=== PATIENT | female | born 2000 | race Two or more races ===

== ENCOUNTER 2018-03-29 20:45 | Emergency (ER) | payer BC ==
[~2018-03-29] VITALS: Ht 172.7 cm; Wt 113.4 kg
--- NOTE | 2018-03-29 20:52 | ED.ADGEN ---
Adult General Chief Complaint Chief Complaint ".. I think .. I am ... the last preg. I was never + by urine.. but I ve not had a period for 2 and 1/2 months..." "I feel the same.. I ve had endometriosis before as well as ovarian cyst on the right...but I really feel like I am . .." I have the same nausea I had when I was ".. I just delivered 8 months ago.." [facility] HPI Patient is a 18 year old female who presents with above hx and complaints of nausea and convinced that she is . She states she has not had a period for last 2 and half months. She states early on in last urine hCGs were negative. Patient has some mild generalized right sided abdomen pain. Patient denies any vaginal discharge. Patient has been sexually active. No history of STDs. LSP x 4. No history of travel. Patient has been gravid and term 1. Patient delivery was 8 months ago. Patient has past history of endometriosis and right ovarian cyst. No history of travel. No history of trauma. No history of ill contacts. She reports normal stools and urinary out put. No history of bad food. Review of Systems Review of Systems Constitutional: Denies fever or chills [] Eyes: Denies change in visual acuity, redness, or eye pain [] HENT: Denies nasal congestion or sore throat [] Respiratory: Denies cough or shortness of breath [] Cardiovascular: No additional information not addressed in HPI [] GI: Complains of abdominal pain, nausea,. Denies vomiting, bloody stools or diarrhea []complains of no periods for 2-1/2 months : Denies dysuria or hematuria [] Musculoskeletal: Denies back pain or joint pain [] Integument: Denies rash or skin lesions [] Neurologic: Denies headache, focal weakness or sensory changes [] Endocrine: Denies polyuria or polydipsia [] All other systems were reviewed and found to be within normal limits, except as documented in this note. Family History Family History Noncontributory Current Medications Current Medications See nursing for home meds Allergies Allergies Allergies Coded Allergies Type Severity Reaction Last Updated Verified morphine Allergy Unknown 03/29/18 Yes Physical Exam Physical Exam Constitutional: no acute distress, non-toxic appearance. [] HENT: Normocephalic, atraumatic, bilateral external ears normal, oropharynx moist, no oral exudates, nose normal. [] Eyes: PERRLA, EOMI, conjunctiva normal, no discharge. [] Neck: Normal range of motion, no tenderness, supple, no stridor. [] Cardiovascular:Heart rate regular rhythm, no murmur [] Lungs & Thorax: Bilateral breath sounds equal at apex on auscultation [] Abdomen: Bowel sounds normal, soft, mild generalized right sided upper abdomen tenderness, no masses, no pulsatile masses. [] No Flank tenderness. Declines pelvic exam and rectal exam at this time. Obese. No rebound. Mild distention Skin: Warm, dry, no erythema, no rash. [] Back: No tenderness, no CVA tenderness. [] Extremities: No tenderness, no cyanosis, no clubbing, ROM intact, no edema. [] No psoas or heeltap. Neurologic: Alert and oriented X 3, normal motor function, normal sensory function, no focal deficits noted. [] Psychologic: Affect anxious,, judgement normal, mood normal. [] Current Patient Data Vital Signs Vital Signs Date Time Temp Pulse Resp B/P (MAP) Pulse Ox O2 Delivery O2 Flow Rate FiO2 03/29/18 23:16 94 18 143/99 (114) 99 Room Air 03/29/18 21:05 98.3 Lab Results Laboratory Tests Test 03/29/18 20:15 03/29/18 20:56 03/29/18 21:39 POC Urine HCG, Qualitative hcg negative (Negative) Urine Collection Type Unknown Urine Color Yellow Urine Clarity Cloudy Urine pH 5.5 Urine Specific [place] >=1.030 Urine Protein >100 mg/dl (NEG-TRACE) Urine Glucose (UA) Neg mg/dL (NEG) Urine Ketones (Stick) Neg mg/dL (NEG) Urine Blood Neg (NEG) Urine Nitrite Neg (NEG) Urine Bilirubin Neg (NEG) Urine Urobilinogen Dipstick 0.2 mg/dL (0.2 mg/dL) Urine Leukocyte Esterase Neg (NEG) Urine RBC 6-10 /HPF (0-2) Urine WBC 11-20 /HPF (0-4) Urine Squamous Epithelial Cells Mod /LPF Urine Bacteria Few /HPF (0-FEW) Urine Hyaline Casts Few /HPF Urine Mucus Slight /LPF Urine Opiates Screen Neg (NEG) Urine Methadone Screen Neg (NEG) Urine Barbiturates Neg (NEG) Urine Phencyclidine Screen Neg (NEG) Urine Amphetamine/Methamphetamine Neg (NEG) Urine Benzodiazepines Screen Neg (NEG) Urine Cocaine Screen Neg (NEG) Urine Cannabinoids Screen Neg (NEG) Urine Ethyl Alcohol Neg (NEG) Maternal Serum HCG Beta Subunit < 1 mIU/mL (0-6) EKG EKG [] Radiology/Procedures Radiology/Procedures [] Course & Med Decision Making Course & Med Decision Making Pertinent Labs and Imaging studies reviewed. (See chart for details). She'll follow-up with her [employer]GER [employer]. Consider workup for ovarian cycle dysfunction. Patient's stay on clear fluid diet for the next 48 hours. Return if any exacerbation of symptoms. Must follow-up. [] Final Impression Final Impression 1. Dysfunctional ovarian cycle 2. Nausea 3. Protein/albumin urine [] Dragon Disclaimer Dragon Disclaimer This electronic medical record was generated, in whole or in part, using a voice recognition dictation system. MARIE MONTOYA MD Mar 29, 2018 20:52
[2018-03-29 21:46] LABS: BILIRUBIN,URINE NEG (NEG); CLARITY,URINE CLOUDY; COLOR,URINE YELLOW; GLUCOSE,URINE NEG (NEG)
[2018-03-29 21:47] LABS: BACTERIA,URINE FEW /HPF (0-FEW); HYALINE CASTS, URINE FEW /HPF; NITRITE,URINE NEG (NEG); SQUAMOUS EPITHELIAL CELL,UR MOD /LPF; UROBILINOGEN,URINE 0.2 mg/dL (0.2 mg/dL)
[2018-03-29 21:49] LABS: BARBITURATES NEG (NEG); BENZODIAZEPINES NEG (NEG); CANNABINOIDS NEG (NEG); COCAINE NEG (NEG); METHADONE NEG (NEG); OPIATES NEG (NEG); PHENCYCLIDINE NEG (NEG)
[2018-03-29 21:50] LABS: AMPHETAMINE/METHAMPHETAMINE NEG (NEG)
[2018-03-29 23:16] VITALS: BP 143/99
== END 2018-03-29 23:16 | disposition home or self-care (01) ==
LOC: ER 20:45
DX: E28.8 Other ovarian dysfunction (principal); R80.9 Proteinuria, unspecified; Z88.5 Allergy status to narcotic agent
CPT/HCPCS: 36415; 80307; 81001; 81025; 84702; 87086; 99284; G0479

== ENCOUNTER 2018-07-20 11:38 | Emergency (ER) | payer BC, MEDICAID ==
[~2018-07-20] VITALS: Ht 170.2 cm; Wt 113.4 kg
[2018-07-20] MEDS ORDERED: IV NORMAL SALINE 1,000ML 1,000 ML IV SCH (12:00)
[2018-07-20] MEDS ORDERED: ONDANSETRON PF 4 MG/2 ML VIAL. ONE (12:03)
[2018-07-20 12:25] VITALS: BP 130/80
[2018-07-20] MEDS ORDERED: ONDANSETRON PF 4 MG/2 ML VIAL. IV ONE (12:30)
[2018-07-20 12:39] LABS: BACTERIA,URINE FEW /HPF (0-FEW); BILIRUBIN,URINE NEG (NEG); CLARITY,URINE CLEAR; COLOR,URINE STRAW; GLUCOSE,URINE NEG (NEG); NITRITE,URINE NEG (NEG); RBC,URINE 0 /HPF (0-2); SQUAMOUS EPITHELIAL CELL,UR FEW /LPF; UROBILINOGEN,URINE 0.2 mg/dL (0.2 mg/dL); WBC,URINE OCC /HPF (0-4)
[2018-07-20 12:50] LABS: BASO % 1 % (0-3); EOS # 0.1 x10^3/uL (0.0-0.7); EOS % 1 % (0-3); HEMATOCRIT 42.2 % (36.0-47.0); HEMOGLOBIN 13.6 g/dL (12.0-15.5); LYMPH # 2.4 x10^3/uL (1.0-4.8); LYMPH % 33 % (24-48); MEAN CORPUSCULAR HEMOGLOBIN 27 pg (25-35); MEAN CORPUSCULAR HGB CONC 32 g/dL (31-37); MEAN CORPUSCULAR VOLUME 82 fL (79-100); MONO # 0.4 x10^3/uL (0.0-1.1); MONO % 6 % (0-9); NEUT # 4.5 x10^3uL (1.8-7.7); NEUT % 60 % (31-73); PLATELET COUNT 177 x10^3/uL (140-400); RED BLOOD COUNT 5.15 x10^6/uL (3.50-5.40); RED CELL DISTRIBUTION WIDTH 14.1 % (11.5-14.5); WHITE BLOOD COUNT 7.5 x10^3/uL (4.0-11.0)
--- NOTE | 2018-07-20 12:51 | PHYS DOC ---
Past History Past Medical History: Asthma, Endometriosis Past Surgical History: No Surgical History Smoking: Non-smoker Alcohol Use: None Drug Use: None Adult General Chief Complaint Chief Complaint: abdominal pain, nausea and vomiting [facility] HPI Patient is a 18 year old female who presents with pinning of multiple episodes of nausea and vomiting and abdominal pain and dizziness. Patient complaining of sudden onset of episodes of vomiting since yesterday morning and had 4 episodes of vomiting that stopped during night. Patient complaining of lower abdominal sharp and constant pain without radiation and rated her pain 9/10. Patient states she started to have vomiting since this morning and had 2 episodes of vomiting after eating. Patient complaining of generalized weakness and dizziness that getting worse with standing up and activity. Patient denies urinary symptoms, , diarrhea and constipation, fever and chills, sick contact. Review of Systems Review of Systems Constitutional: Denies fever or chills [] Eyes: Denies change in visual acuity, redness, or eye pain [] HENT: Denies nasal congestion or sore throat [] Respiratory: Denies cough or shortness of breath [] Cardiovascular: No additional information not addressed in HPI [] GI: Reports abdominal pain, nausea, vomiting, denies bloody stools or diarrhea [ ] : Denies dysuria or hematuria [] Musculoskeletal: Denies back pain or joint pain [] Integument: Denies rash or skin lesions [] Neurologic: Denies headache, focal weakness or sensory changes [] Endocrine: Denies polyuria or polydipsia [] All other systems were reviewed and found to be within normal limits, except as documented in this note. Current Medications Current Medications Current Medications Medications (Trade) Dose Ordered Sig/[facility] Start Time Stop Time Status Last Admin Dose Admin Ondansetron HCl (Zofran) 4 mg STK-MED ONCE 07/20/18 12:03 07/20/18 12:04 DC Sodium Chloride 1,000 ml @ 1,000 mls/hr Q1H 07/20/18 12:00 07/20/18 12:59 07/20/18 12:22 1,000 MLS/HR Allergies Allergies Allergies Coded Allergies Type Severity Reaction Last Updated Verified morphine Allergy Unknown 03/29/18 Yes Physical Exam Physical Exam Constitutional: Well developed, well nourished, mild distress, non-toxic appearance. [] HENT: Normocephalic, atraumatic, oropharynx moist, no oral exudates, nose normal. [] Eyes: PERRLA, EOMI, conjunctiva normal, no discharge. [] Neck: Normal range of motion, no tenderness, supple, no stridor. [] Cardiovascular:Heart rate regular rhythm, no murmur [] Lungs & Thorax: Bilateral breath sounds clear to auscultation [] Abdomen: Bowel sounds normal, soft, no tenderness, no masses, no pulsatile masses. [] Skin: Warm, dry, no erythema, no rash. [] Back: No tenderness, no CVA tenderness. [] Extremities: No tenderness, no cyanosis, no clubbing, ROM intact, no edema. [] Neurologic: Alert and oriented X 3, normal motor function, normal sensory function, no focal deficits noted. [] Psychologic: Affect normal, judgement normal, mood normal. [] Current Patient Data Vital Signs Vital Signs Date Time Temp Pulse Resp B/P (MAP) Pulse Ox O2 Delivery O2 Flow Rate FiO2 07/20/18 12:25 71 18 130/80 (97) 99 Room Air 07/20/18 11:54 97.6 Lab Results Laboratory Tests Test 07/20/18 12:00 07/20/18 12:35 Urine Collection Type Unknown Urine Color Straw Urine Clarity Clear Urine pH 6.5 Urine Specific [place] 1.020 Urine Protein Neg (NEG-TRACE) Urine Glucose (UA) Neg mg/dL (NEG) Urine Ketones (Stick) Neg mg/dL (NEG) Urine Blood Neg (NEG) Urine Nitrite Neg (NEG) Urine Bilirubin Neg (NEG) Urine Urobilinogen Dipstick 0.2 mg/dL (0.2 mg/dL) Urine Leukocyte Esterase Neg (NEG) Urine RBC 0 /HPF (0-2) Urine WBC Occ /HPF (0-4) Urine Squamous Epithelial Cells Few /LPF Urine Bacteria Few /HPF (0-FEW) POC Urine HCG, Qualitative hcg negative (Negative) EKG EKG [] Radiology/Procedures Radiology/Procedures [] Course & Med Decision Making Course & Med Decision Making Pertinent Labs reviewed. (See chart for details) Evaluation of patient in ER showed 18-year-old male patient with complaining of episodes of nausea and vomiting and abdominal pain and generalized weakness and dizziness since yesterday. Patient had unremarkable physical exam and labs and felt better with IV fluid, Zofran and Toradol and tolerated oral intake. Plan discharge patient home to diagnose of viral gastritis. Dragon Disclaimer Dragon Disclaimer This electronic medical record was generated, in whole or in part, using a voice recognition dictation system. Departure Departure: Impression: Primary Impression: Viral gastritis Additional Impressions: Nausea and vomiting Abdominal pain Disposition: HOME, SELF-CARE (at 1326) Condition: IMPROVED Referrals: PCP,NO (PCP) Patient Instructions: Abdominal Pain, Nausea and Vomiting Additional Instructions: Drink plenty of liquids Follow-up with your primary care physician in 3-5 days Return to ER if not getting better Do not take solid food for 24 hours after the last vomiting Scripts Ondansetron Hcl (ZOFRAN) 4 Mg Tablet 1 TAB PO Q6HRS for nausea and vomiting, #12 TAB Prov: SAMMI CROWDER MD 07/20/18 Naproxen (NAPROSYN) 500 Mg Tablet 500 MG PO BID for pain, #20 TAB Prov: SAMMI CROWDER MD 07/20/18 Problem Qualifiers SAMMI CROWDER MD Jul 20, 2018 12:51
[2018-07-20 12:54] LABS: ALBUMIN 3.9 g/dL (3.4-5.0); ALBUMIN/GLOBULIN RATIO 1.1 (1.0-1.7); CALCIUM 9.3 mg/dL (8.5-10.1); CREATININE 0.7 mg/dL (0.6-1.0); GFR 106.7; POTASSIUM 3.9 mmol/L (3.5-5.1); TOTAL BILIRUBIN 0.3 mg/dL (0.2-1.0); TOTAL PROTEIN 7.5 g/dL (6.4-8.2)
[2018-07-20] MEDS ORDERED: KETOROLAC 30 MG/ML VIAL. IV ONE (13:15)
[2018-07-20] MEDS ORDERED: NAPR-683 PO (13:31)
[2018-07-20] MEDS ORDERED: ONDA4TAB7 PO (13:31)
== END 2018-07-20 13:47 | disposition home or self-care (01) ==
LOC: ER 11:38
DX: A08.4 Viral intestinal infection, unspecified (principal); R42 Dizziness and giddiness; J45.909 Unspecified asthma, uncomplicated; Z88.5 Allergy status to narcotic agent
CPT/HCPCS: 36415; 80053; 81001; 81025; 83690; 85025; 96361; 96374; 96375; 99283; J1885; J2405; 99284-25; J7030

== ENCOUNTER 2018-08-05 06:51 | Emergency (ER) | payer BC, OTHER ==
[~2018-08-05] VITALS: Ht 170.2 cm; Wt 117.9 kg
[~2018-08-05 06:51] MED LIST: NAPR-683 PO; ONDA4TAB7 PO
[2018-08-05] MEDS ORDERED: IV NORMAL SALINE 1,000ML 1,000 ML IV SCH (07:06)
[2018-08-05] MEDS ORDERED: ONDANSETRON PF 4 MG/2 ML VIAL. IV ONE (07:30)
[2018-08-05 07:31] LABS: BASO % 0 % (0-3); EOS % 1 % (0-3); HEMATOCRIT 44.6 % (36.0-47.0); HEMOGLOBIN 14.5 g/dL (12.0-15.5); LYMPH # 1.8 x10^3/uL (1.0-4.8); LYMPH % 22 % (24-48); MEAN CORPUSCULAR HEMOGLOBIN 27 pg (25-35); MEAN CORPUSCULAR HGB CONC 33 g/dL (31-37); MEAN CORPUSCULAR VOLUME 82 fL (79-100); MONO # 0.5 x10^3/uL (0.0-1.1); MONO % 6 % (0-9); NEUT # 5.7 x10^3uL (1.8-7.7); NEUT % 71 % (31-73); PLATELET COUNT 198 x10^3/uL (140-400); RED BLOOD COUNT 5.43 x10^6/uL (3.50-5.40); WHITE BLOOD COUNT 8.1 x10^3/uL (4.0-11.0)
[2018-08-05 07:43] LABS: PREG TEST PT QUAL NEGATIVE (NEG)
[2018-08-05 07:47] LABS: ALBUMIN 3.7 g/dL (3.4-5.0); ALBUMIN/GLOBULIN RATIO 0.8 (1.0-1.7); CALCIUM 9.1 mg/dL (8.5-10.1); CREATININE 0.9 mg/dL (0.6-1.0); GFR 79.8; POTASSIUM 4.6 mmol/L (3.5-5.1); TOTAL BILIRUBIN 0.3 mg/dL (0.2-1.0); TOTAL PROTEIN 8.2 g/dL (6.4-8.2)
[2018-08-05] MEDS: KETOROLAC 30 MG/ML VIAL. IV ONE ×2 (07:58→08:44)
[2018-08-05 08:31] LABS: BACTERIA,URINE FEW /HPF (0-FEW); BILIRUBIN,URINE NEG (NEG); CLARITY,URINE CLEAR; COLOR,URINE YELLOW; GLUCOSE,URINE NEG (NEG); NITRITE,URINE NEG (NEG); RBC,URINE 0 /HPF (0-2); SQUAMOUS EPITHELIAL CELL,UR OCC /LPF; UROBILINOGEN,URINE 0.2 mg/dL (0.2 mg/dL)
--- NOTE | 2018-08-05 08:33 | RAD ---
CT of the abdomen and pelvis without contrast, 08/05/2018: HISTORY: Lower abdominal pain and nausea Noncontrast scans were obtained as requested. The liver is enlarged and demonstrates decreased density in a geographic, patchy pattern. The findings suggest hepatic steatosis. The gallbladder is unremarkable. No pancreatic abnormality is seen. The spleen is of normal size. No renal abnormality is detected. The abdominal aorta is unremarkable. No retroperitoneal, iliac or internal adenopathy is seen. The uterus and ovaries are unremarkable. There is a small amount of free fluid in the pelvis. The bowel loops are not dilated. A portion of the appendix is visualized and it is unremarkable. Several small mesenteric lymph nodes are present in the right lower quadrant. The largest of these demonstrates a short axis dimension of 8-9 mm. No definite mesenteric adenopathy is seen. No free air is evident in the abdomen or pelvis. Incidental note is made of bilateral spondylolysis at L5 without associated spondylolisthesis. IMPRESSION: 1. Small amount of free fluid in the pelvis. 2. Hepatomegaly with patchy decreased densities compatible with hepatic steatosis. 3. Bilateral spondylolysis at L5. PQRS Compliance Statement: One or more of the following individualized dose reduction techniques were utilized for this examination: 1. Automated exposure control 2. Adjustment of the mA and/or kV according to patient size 3. Use of iterative reconstruction technique Electronically signed by: Antolin Hamilton MD (08/05/2018 8:30 AM) [facility]
[2018-08-05 08:38] LABS: BARBITURATES NEG (NEG); BENZODIAZEPINES NEG (NEG); CANNABINOIDS NEG (NEG); COCAINE NEG (NEG); METHADONE NEG (NEG); OPIATES NEG (NEG); PHENCYCLIDINE NEG (NEG)
[2018-08-05 08:40] LABS: AMPHETAMINE/METHAMPHETAMINE NEG (NEG)
[2018-08-05] MEDS ORDERED: ONDA4TAB7 PO (09:02)
[2018-08-05] MEDS ORDERED: NAPR-683 PO (09:02)
--- NOTE | 2018-08-05 09:04 | PHYS DOC ---
Past History Past Medical History: Asthma, Endometriosis Past Surgical History: No Surgical History Smoking: Non-smoker Alcohol Use: None Drug Use: None Adult General Chief Complaint Chief Complaint: ABDOMINAL PAIN HPI HPI Patient is a 18 year old female who presents with leaning of sudden onset of severe right lower quadrant pain as a sharp pain with radiation to her back with one episode of vomiting since this morning like her previous episodes of abdominal pain with endometriosis. Patient said the pain 10 over 10 and denies urinary symptoms, fever and chills, . She states she finished her menstruation few days ago and does not have any vaginal bleeding or discharge. Review of Systems Review of Systems Constitutional: Denies fever or chills [] Eyes: Denies change in visual acuity, redness, or eye pain [] HENT: Denies nasal congestion or sore throat [] Respiratory: Denies cough or shortness of breath [] Cardiovascular: No additional information not addressed in HPI [] GI: Reports abdominal pain, nausea, vomiting, denies bloody stools or diarrhea [ ] : Denies dysuria or hematuria [] Musculoskeletal: Denies back pain or joint pain [] Integument: Denies rash or skin lesions [] Neurologic: Denies headache, focal weakness or sensory changes [] Endocrine: Denies polyuria or polydipsia [] All other systems were reviewed and found to be within normal limits, except as documented in this note. Current Medications Current Medications Current Medications Medications (Trade) Dose Ordered Sig/[facility] Start Time Stop Time Status Last Admin Dose Admin Ketorolac Tromethamine (Toradol 30mg Vial) 30 mg 1X ONCE 08/05/18 07:30 08/05/18 07:32 DC 08/05/18 07:58 30 MG Ondansetron HCl (Zofran) 4 mg 1X ONCE 08/05/18 07:30 08/05/18 07:32 DC Sodium Chloride 1,000 ml @ 1,000 mls/hr Q1H 08/05/18 07:06 08/05/18 08:05 DC 08/05/18 07:17 1,000 MLS/HR Allergies Allergies Allergies Coded Allergies Type Severity Reaction Last Updated Verified morphine Allergy Unknown 03/29/18 Yes Physical Exam Physical Exam Constitutional: Well developed, well nourished, moderate distress, non-toxic appearance. [] HENT: Normocephalic, atraumatic Eyes: PERRLA, EOMI, conjunctiva normal, no discharge. [] Neck: Normal range of motion, no tenderness, supple, no stridor. [] Cardiovascular:Heart rate regular rhythm, no murmur [] Lungs & Thorax: Bilateral breath sounds clear to auscultation [] Abdomen: Bowel sounds normal, soft, right lower quadrant guarding, no tenderness , no masses, no pulsatile masses. [] Skin: Warm, dry, no erythema, no rash. [] Back: No tenderness, no CVA tenderness. [] Extremities: No tenderness, no cyanosis, no clubbing, ROM intact, no edema. [] Neurologic: Alert and oriented X 3, normal motor function, normal sensory function, no focal deficits noted. [] Psychologic: Affect anxious, judgement normal, mood normal. [] Current Patient Data Vital Signs Vital Signs Date Time Temp Pulse Resp B/P (MAP) Pulse Ox O2 Delivery O2 Flow Rate FiO2 08/05/18 07:17 98.2 74 24 99 Room Air Lab Results Laboratory Tests Test 08/05/18 07:05 08/05/18 07:10 Urine Collection Type U cath Urine Color Yellow Urine Clarity Clear Urine pH 7.5 Urine Specific [place] 1.020 Urine Protein 100 mg/dl (NEG-TRACE) Urine Glucose (UA) Neg mg/dL (NEG) Urine Ketones (Stick) Neg mg/dL (NEG) Urine Blood Neg (NEG) Urine Nitrite Neg (NEG) Urine Bilirubin Neg (NEG) Urine Urobilinogen Dipstick 0.2 mg/dL (0.2 mg/dL) Urine Leukocyte Esterase Neg (NEG) Urine RBC 0 /HPF (0-2) Urine WBC 1-4 /HPF (0-4) Urine Squamous Epithelial Cells Occ /LPF Urine Bacteria Few /HPF (0-FEW) Urine Mucus Slight /LPF Urine Opiates Screen Neg (NEG) Urine Methadone Screen Neg (NEG) Urine Barbiturates Neg (NEG) Urine Phencyclidine Screen Neg (NEG) Urine Amphetamine/Methamphetamine Neg (NEG) Urine Benzodiazepines Screen Neg (NEG) Urine Cocaine Screen Neg (NEG) Urine Cannabinoids Screen Neg (NEG) Urine Ethyl Alcohol Neg (NEG) White Blood Count 8.1 x10^3/uL (4.0-11.0) Red Blood Count 5.43 x10^6/uL (3.50-5.40) H Hemoglobin 14.5 g/dL (12.0-15.5) Hematocrit 44.6 % (36.0-47.0) Mean Corpuscular Volume 82 fL (79-100) Mean Corpuscular Hemoglobin 27 pg (25-35) Mean Corpuscular Hemoglobin Concent 33 g/dL (31-37) Red Cell Distribution Width 14.0 % (11.5-14.5) Platelet Count 198 x10^3/uL (140-400) Neutrophils (%) (Auto) 71 % (31-73) Lymphocytes (%) (Auto) 22 % (24-48) L Monocytes (%) (Auto) 6 % (0-9) Eosinophils (%) (Auto) 1 % (0-3) Basophils (%) (Auto) 0 % (0-3) Neutrophils # (Auto) 5.7 x10^3uL (1.8-7.7) Lymphocytes # (Auto) 1.8 x10^3/uL (1.0-4.8) Monocytes # (Auto) 0.5 x10^3/uL (0.0-1.1) Eosinophils # (Auto) 0.0 x10^3/uL (0.0-0.7) Basophils # (Auto) 0.0 x10^3/uL (0.0-0.2) Sodium Level 140 mmol/L (136-145) Potassium Level 4.6 mmol/L (3.5-5.1) Chloride Level 103 mmol/L (98-107) Carbon Dioxide Level 25 mmol/L (21-32) Anion Gap 12 (6-14) Blood Urea Nitrogen 14 mg/dL (7-20) Creatinine 0.9 mg/dL (0.6-1.0) Estimated GFR (Cockcroft-Gault) 79.8 BUN/Creatinine Ratio 16 (6-20) Glucose Level 120 mg/dL (70-99) H Calcium Level 9.1 mg/dL (8.5-10.1) Total Bilirubin 0.3 mg/dL (0.2-1.0) Aspartate Amino Transferase (AST) 19 U/L (15-37) Alanine Aminotransferase (ALT) 26 U/L (14-59) Alkaline Phosphatase 71 U/L (46-116) Total Protein 8.2 g/dL (6.4-8.2) Albumin 3.7 g/dL (3.4-5.0) Albumin/Globulin Ratio 0.8 (1.0-1.7) L Lipase 127 U/L (73-393) Serum Test, Qualitative Negative (NEG) EKG EKG [] Radiology/Procedures Radiology/Procedures [] Course & Med Decision Making Course & Med Decision Making Pertinent Labs and Imaging studies reviewed. (See chart for details) Evaluation of patient in ER showed 18-year-old female patient with sudden onset of right lower quadrant pain and nausea and vomiting. Patient had moderate distress at arrival to ER that improved with IV fluid, Zofran, Toradol. Patient had unremarkable labs and CT abdomen and pelvis except for mild fluid in pelvis. Patient informed at most efficiently small ruptured ovarian cyst that caused severe pain. Plan discharge patient home with diagnose of lower abdominal pain and nausea and vomiting. Patient instructed to follow-up with on- call COMMER[employer] ANALYST Dr Boyle. Gurinder Disclaimer Gurinder Disclaimer This electronic medical record was generated, in whole or in part, using a voice recognition dictation system. Departure Departure: Impression: Primary Impression: Abdominal pain Additional Impression: Nausea and vomiting Disposition: HOME, SELF-CARE (at 0858) Condition: IMPROVED Referrals: PCP,NO (PCP) Patient Instructions: Abdominal Pain, Nausea and Vomiting Additional Instructions: Follow-up with on-call COMMERCIAL FINANCE ANALYST Jose Juan Boyle call [phone] to make an appointment Drink plenty of liquids Follow-up with your primary care physician in 3-5 days Return to ER if not getting better Scripts Naproxen (NAPROSYN) 500 Mg Tablet 500 MG PO BID for pain, #20 TAB Prov: SAMMI CROWDER MD 08/05/18 Ondansetron Hcl (ZOFRAN) 4 Mg Tablet 1 TAB PO Q6HRS for nausea and vomiting, #12 TAB Prov: SAMMI CROWDER MD 08/05/18 Problem Qualifiers SAMMI CROWDER MD Aug 05, 2018 09:04
[2018-08-05 09:12] VITALS: BP 161/82
== END 2018-08-05 09:28 | disposition home or self-care (01) ==
LOC: ER 06:51
DX: R10.31 Right lower quadrant pain (principal); R11.2 Nausea with vomiting, unspecified; J45.909 Unspecified asthma, uncomplicated; Z88.5 Allergy status to narcotic agent
CPT/HCPCS: 36415; 74176; 80053; 80307; 81001; 83690; 84703; 85025; 96361; 96374; 99284; J1885; J7030

== ENCOUNTER 2018-08-08 06:17 | Emergency (ER) | payer BC, OTHER ==
[~2018-08-08] VITALS: Ht 170.2 cm; Wt 119.3 kg
[2018-08-08 06:20] VITALS: BP 149/71
[2018-08-08] MEDS ORDERED: TRAM-48 PO (06:42)
--- NOTE | 2018-08-08 06:43 | PHYS DOC ---
Past History Past Medical History: Asthma, Endometriosis Past Surgical History: No Surgical History Smoking: Non-smoker Alcohol Use: None Drug Use: None Adult General Chief Complaint Chief Complaint: ABDOMINAL PAIN HPI HPI Patient is a 18 year old female with history of endometriosis who presents with ending of lower abdominal pain. Patient complaining of constant lower abdominal pain for the last 5 days as a sharp pain with radiation to pelvic area. Patient had one episode of vomiting the first day patient was seen in this emergency room by me and had unremarkable CT of abdomen and pelvis and labs and treated with IV fluid and Toradol and felt better and discharged home with prescription of Naprosyn. The patient was seen by POWER TRUCK DRIVER and instructed to remove the implanted contraception and is scheduled for laparoscopic surgery in August. Patient states her pain is improved after emergency room visit but and rated her pain 9/10. Patient denies urinary symptoms, , fever and chills, diarrhea and constipation. Patient had history of the same episode of pain with diagnosis of endometriosis. Review of Systems Review of Systems Constitutional: Denies fever or chills [] Eyes: Denies change in visual acuity, redness, or eye pain [] HENT: Denies nasal congestion or sore throat [] Respiratory: Denies cough or shortness of breath [] Cardiovascular: No additional information not addressed in HPI [] GI: Reports abdominal pain, nausea, denies vomiting, bloody stools or diarrhea [ ] : Denies dysuria or hematuria [] Musculoskeletal: Denies back pain or joint pain [] Integument: Denies rash or skin lesions [] Neurologic: Denies headache, focal weakness or sensory changes [] Endocrine: Denies polyuria or polydipsia [] All other systems were reviewed and found to be within normal limits, except as documented in this note. Current Medications Current Medications Current Medications Medications (Trade) Dose Ordered Sig/[facility] Start Time Stop Time Status Last Admin Dose Admin Acetaminophen/ Hydrocodone Bitart (Lortab 5/325) 1 tab 1X ONCE 08/08/18 06:45 08/08/18 06:46 UNV Ketorolac Tromethamine (Toradol Im) 60 mg 1X ONCE 08/08/18 06:45 08/08/18 06:46 UNV Allergies Allergies Allergies Coded Allergies Type Severity Reaction Last Updated Verified morphine Allergy Unknown 03/29/18 Yes Physical Exam Physical Exam Constitutional: Well developed, well nourished, mild distress, non-toxic appearance, morbidly obese. [] HENT: Normocephalic, atraumatic, bilateral external ears normal, oropharynx moist, no oral exudates, nose normal. [] Eyes: PERRLA, EOMI, conjunctiva normal, no discharge. [] Neck: Normal range of motion, no tenderness, supple, no stridor. [] Cardiovascular:Heart rate regular rhythm, no murmur [] Lungs & Thorax: Bilateral breath sounds clear to auscultation [] Abdomen: Bowel sounds normal, soft, no tenderness, no masses, no pulsatile masses. [] Skin: Warm, dry, no erythema, no rash. [] Back: No tenderness, no CVA tenderness. [] Extremities: No tenderness, no cyanosis, no clubbing, ROM intact, no edema. [] Neurologic: Alert and oriented X 3, normal motor function, normal sensory function, no focal deficits noted. [] Psychologic: Affect normal, judgement normal, mood normal. [] EKG EKG [] Radiology/Procedures Radiology/Procedures [] Course & Med Decision Making Course & Med Decision Making Evaluation of patient in ER showed 18-year-old female patient with history of endometriosis with complaining of continuing abdominal pain for the last several days with negative previous emergency room evaluation. She was seen by her POWER TRUCK DRIVER and has a scheduled for laparoscopy procedure. Patient had unremarkable physical exam and treated with Toradol and [place] with improvement of her pain. Patient instructed to continue Naprosyn and prescription for Ultram was given. Patient asking for work excuse and light duty. Dragon Disclaimer Dragon Disclaimer This electronic medical record was generated, in whole or in part, using a voice recognition dictation system. Departure Departure: Impression: Primary Impression: Lower abdominal pain Additional Impressions: Endometriosis Morbid obesity with BMI of 40.0-44.9, adult Disposition: HOME, SELF-CARE (At 0650) Condition: IMPROVED Referrals: PCP,MALINI (PCP) Patient Instructions: Abdominal Pain, Endometriosis Additional Instructions: Drink plenty of liquids Follow-up with your primary care physician in 3-5 days Return to ER if not getting better Follow-up with your POWER TRUCK DRIVER as scheduled Scripts Tramadol Hcl (ULTRAM) 50 Mg Tablet 50 MG PO PRN Q6HRS PRN for PAIN, #20 TAB Prov: SAMMI CROWDER MD 08/08/18 Problem Qualifiers SAMMI CROWDER MD Aug 08, 2018 06:43
[2018-08-08] MEDS ORDERED: HYDROcodone/APAP 5/325MG 1 TAB TABLET PO ONE (07:00)
[2018-08-08] MEDS ORDERED: KETOROLAC 60 MG/2 ML VIAL. IM ONE (07:00)
== END 2018-08-08 07:01 | disposition home or self-care (01) ==
LOC: ER 06:17
DX: N80.8 Other endometriosis (principal); E66.01 Morbid (severe) obesity due to excess calories; Z68.41 Body mass index [BMI] 40.0-44.9, adult
CPT/HCPCS: 96372; 99283; J1885

== ENCOUNTER 2018-09-20 17:55 | Emergency (ER) | payer BC, OTHER ==
[~2018-09-20] VITALS: Ht 170.2 cm; Wt 121.5 kg
[~2018-09-20 17:55] MED LIST changes: +TRAM-48 PO
[2018-09-20 19:08] LABS: BACTERIA,URINE FEW /HPF (0-FEW); BILIRUBIN,URINE NEG (NEG); CLARITY,URINE CLEAR; COLOR,URINE YELLOW; GLUCOSE,URINE NEG (NEG); NITRITE,URINE NEG (NEG); RBC,URINE 0 /HPF (0-2); SQUAMOUS EPITHELIAL CELL,UR FEW /LPF; UROBILINOGEN,URINE 0.2 mg/dL (0.2 mg/dL); WBC,URINE 0 /HPF (0-4)
[2018-09-20 20:45] VITALS: BP 141/76
[2018-09-20] MEDS ORDERED: ONDA8TAB9 PO (20:47)
--- NOTE | 2018-09-21 06:57 | ED.ADGEN ---
Past History Past Medical History: Asthma, Endometriosis, Ovarian Cyst Past Surgical History: No Surgical History Smoking: Non-smoker Alcohol Use: None Drug Use: None Adult General Chief Complaint Chief Complaint ".. I am having some spotting and I think I am ... and having some cramping... [facility] HPI Patient is a 18 year old female who presents with vaginal spotting . Pt. states last period was 3 week s ago. Pt. has a past history of endometriosis. No history of STDs. Patient describes pain is somewhat generalized cramping. No history of travel. No history of ill contacts. Has had a couple episodes of nausea. One episode of vomiting. One episode of diarrhea. No history of trauma. Review of Systems Review of Systems Constitutional: Denies fever or chills [] Eyes: Denies change in visual acuity, redness, or eye pain [] HENT: Denies nasal congestion or sore throat [] Respiratory: Denies cough or shortness of breath [] Cardiovascular: No additional information not addressed in HPI [] GI: Complaints of crampy abdominal pain, nausea, vomiting, and diarrhea [] : Denies dysuria or hematuria []some vaginal spotting Musculoskeletal: Denies back pain or joint pain [] Integument: Denies rash or skin lesions [] Neurologic: Denies headache, focal weakness or sensory changes [] Endocrine: Denies polyuria or polydipsia [] All other systems were reviewed and found to be within normal limits, except as documented in this note. Family History Family History Noncontributory Current Medications Current Medications See nursing for home meds. Allergies Allergies Allergies Coded Allergies Type Severity Reaction Last Updated Verified morphine Allergy Unknown 03/29/18 Yes Physical Exam Physical Exam Constitutional: Well developed, well nourished, no acute distress, non-toxic appearance. [] HENT: Normocephalic, atraumatic, bilateral external ears normal, oropharynx moist, no oral exudates, nose normal. [] Eyes: PERRLA, EOMI, conjunctiva normal, no discharge. [] Neck: Normal range of motion, no tenderness, supple, no stridor. [] Cardiovascular:Heart rate regular rhythm, no murmur [] Lungs & Thorax: Bilateral breath sounds equal at apex on auscultation [] Abdomen: Bowel sounds hyperactive, soft, generalized abdomen tenderness, no masses, no pulsatile masses. [] No focal rebound. Skin: Warm, dry, no erythema, no rash. [] Back: No tenderness, no CVA tenderness. [] Extremities: No tenderness, no cyanosis, no clubbing, ROM intact, no edema. [] Neurologic: Alert and oriented X 3, normal motor function, normal sensory function, no focal deficits noted. [] Psychologic: Affect anxious, judgement normal, mood normal. [] Current Patient Data Vital Signs Vital Signs Date Time Temp Pulse Resp B/P (MAP) Pulse Ox O2 Delivery O2 Flow Rate FiO2 09/20/18 20:45 82 20 141/76 (97) 98 Room Air 09/20/18 18:04 97.9 Lab Results Laboratory Tests Test 09/20/18 18:11 09/20/18 18:23 09/20/18 19:55 Urine Collection Type Unknown Urine Color Yellow Urine Clarity Clear Urine pH 7.0 Urine Specific [place] 1.025 Urine Protein 30 mg/dl (NEG-TRACE) Urine Glucose (UA) Neg mg/dL (NEG) Urine Ketones (Stick) Neg mg/dL (NEG) Urine Blood Neg (NEG) Urine Nitrite Neg (NEG) Urine Bilirubin Neg (NEG) Urine Urobilinogen Dipstick 0.2 mg/dL (0.2 mg/dL) Urine Leukocyte Esterase Neg (NEG) Urine RBC 0 /HPF (0-2) Urine WBC 0 /HPF (0-4) Urine Squamous Epithelial Cells Few /LPF Urine Bacteria Few /HPF (0-FEW) Urine Mucus Slight /LPF POC Urine HCG, Qualitative hcg negative (Negative) Maternal Serum HCG Beta Subunit < 1 mIU/mL (0-6) EKG EKG [] Radiology/Procedures Radiology/Procedures [] Course & Med Decision Making Course & Med Decision Making Pertinent Labs and Imaging studies reviewed. (See chart for details) Patient follow-up primary care. Patient return if any concerns. Continue monitor vaginal spotting. Advised patient current test are negative. Must follow-up. [] Final Impression Final Impression 1. Dysfunctional uterine bleeding 2. Abdomen discomfort-viral syndrome[] Dragon Disclaimer Dragon Disclaimer This electronic medical record was generated, in whole or in part, using a voice recognition dictation system. Dragon Disclaimer This chart was dictated in whole or in part using Voice Recognition software in a busy, high-work load, and often noisy Emergency Department environment. It may contain unintended and wholly unrecognized errors or omissions. Discharge Summary Visit Information Final Diagnosis Problems Medical Problems: (1) Pain in the abdomen Status: Acute Brief Hospital Course Allergies Allergies Coded Allergies Type Severity Reaction Last Updated Verified morphine Allergy Unknown 03/29/18 Yes Vital Signs Vital Signs Date Time Temp Pulse Resp B/P (MAP) Pulse Ox O2 Delivery O2 Flow Rate FiO2 09/20/18 20:45 82 20 141/76 (97) 98 Room Air 09/20/18 18:04 97.9 Lab Results Laboratory Tests Test 09/20/18 18:11 09/20/18 18:23 09/20/18 19:55 Urine Collection Type Unknown Urine Color Yellow Urine Clarity Clear Urine pH 7.0 Urine Specific [place] 1.025 Urine Protein 30 mg/dl (NEG-TRACE) Urine Glucose (UA) Neg mg/dL (NEG) Urine Ketones (Stick) Neg mg/dL (NEG) Urine Blood Neg (NEG) Urine Nitrite Neg (NEG) Urine Bilirubin Neg (NEG) Urine Urobilinogen Dipstick 0.2 mg/dL (0.2 mg/dL) Urine Leukocyte Esterase Neg (NEG) Urine RBC 0 /HPF (0-2) Urine WBC 0 /HPF (0-4) Urine Squamous Epithelial Cells Few /LPF Urine Bacteria Few /HPF (0-FEW) Urine Mucus Slight /LPF Bedside Urine HCG, Qualitative hcg negative (Negative) Maternal Serum HCG Beta Subunit < 1 mIU/mL (0-6) Brief Hospital Course Ms. Clark is a 18 old female who presented with crampy abd. pain and spotting. Urine and HCG - neg for . Pt. follow up with primary Discharge Information Dischare Medications Active Scripts Active Zofran (Ondansetron Hcl) 8 Mg Tablet 8 Mg PO QIDPRN PRN Ultram (Tramadol HCl) 50 Mg Tablet 50 Mg PO PRN Q6HRS PRN Naprosyn (Naproxen) 500 Mg Tablet 500 Mg PO BID Zofran (Ondansetron Hcl) 4 Mg Tablet 1 Tab PO Q6HRS Zofran (Ondansetron Hcl) 4 Mg Tablet 1 Tab PO Q6HRS Naprosyn (Naproxen) 500 Mg Tablet 500 Mg PO BID Discharge Summary Visit Information Final Diagnosis Problems Medical Problems: (1) Pain in the abdomen Status: Acute Brief Hospital Course Allergies Allergies Coded Allergies Type Severity Reaction Last Updated Verified morphine Allergy Unknown 03/29/18 Yes Vital Signs Vital Signs Date Time Temp Pulse Resp B/P (MAP) Pulse Ox O2 Delivery O2 Flow Rate FiO2 09/20/18 20:45 82 20 141/76 (97) 98 Room Air 09/20/18 18:04 97.9 Lab Results Laboratory Tests Test 09/20/18 18:11 09/20/18 18:23 09/20/18 19:55 Urine Collection Type Unknown Urine Color Yellow Urine Clarity Clear Urine pH 7.0 Urine Specific [place] 1.025 Urine Protein 30 mg/dl (NEG-TRACE) Urine Glucose (UA) Neg mg/dL (NEG) Urine Ketones (Stick) Neg mg/dL (NEG) Urine Blood Neg (NEG) Urine Nitrite Neg (NEG) Urine Bilirubin Neg (NEG) Urine Urobilinogen Dipstick 0.2 mg/dL (0.2 mg/dL) Urine Leukocyte Esterase Neg (NEG) Urine RBC 0 /HPF (0-2) Urine WBC 0 /HPF (0-4) Urine Squamous Epithelial Cells Few /LPF Urine Bacteria Few /HPF (0-FEW) Urine Mucus Slight /LPF Bedside Urine HCG, Qualitative hcg negative (Negative) Maternal Serum HCG Beta Subunit < 1 mIU/mL (0-6) Brief Hospital Course Ms. Clark is a 18 old female who presented with spotting, nausea and abd. cramping. Concerned she was . Test for are negative. Discharge Information Condition at Discharge: Improved, Stable Disposition/Orders: D/C to Home Dischare Medications Active Scripts Active Zofran (Ondansetron Hcl) 8 Mg Tablet 8 Mg PO QIDPRN PRN Ultram (Tramadol HCl) 50 Mg Tablet 50 Mg PO PRN Q6HRS PRN Naprosyn (Naproxen) 500 Mg Tablet 500 Mg PO BID Zofran (Ondansetron Hcl) 4 Mg Tablet 1 Tab PO Q6HRS Zofran (Ondansetron Hcl) 4 Mg Tablet 1 Tab PO Q6HRS Naprosyn (Naproxen) 500 Mg Tablet 500 Mg PO BID MARIE MONTOYA MD Sep 21, 2018 06:57
== END 2018-09-20 20:51 | disposition home or self-care (01) ==
LOC: ER 17:55
DX: N93.8 Other specified abnormal uterine and vaginal bleeding (principal); B34.9 Viral infection, unspecified; R10.84 Generalized abdominal pain; J45.909 Unspecified asthma, uncomplicated; Z88.5 Allergy status to narcotic agent
CPT/HCPCS: 36415; 81001; 81025; 84702; 99283

== ENCOUNTER 2018-10-13 09:18 | Emergency (ER) | payer BC, OTHER ==
[~2018-10-13] VITALS: Ht 172.7 cm; Wt 117.9 kg
[~2018-10-13 09:18] MED LIST changes: +ONDA8TAB9 PO
[2018-10-13] MEDS ORDERED: ONDANSETRON ODT 4 MG TAB.RAPDIS PO ONE (10:30)
[2018-10-13 10:40] LABS: COLOR,URINE YELLOW
[2018-10-13 10:41] LABS: BACTERIA,URINE 0 /HPF (0-FEW); BILIRUBIN,URINE NEG (NEG); CLARITY,URINE HAZY; GLUCOSE,URINE NEG (NEG); NITRITE,URINE NEG (NEG); RBC,URINE 0 /HPF (0-2); SQUAMOUS EPITHELIAL CELL,UR OCC /LPF; UROBILINOGEN,URINE 0.2 mg/dL (0.2 mg/dL); WBC,URINE 0 /HPF (0-4)
[2018-10-13] MEDS ORDERED: KETOROLAC 60 MG/2 ML VIAL. IM ONE (11:30)
--- NOTE | 2018-10-13 12:21 | RAD ---
Pelvic ultrasound History: Left-sided pelvic pain began today. Transabdominal scan Uterus measures 7.6 x 3.4 x 5.3 cm. Endometrial stripe measures 8 mm. Left ovary measures 4.3 cm. Right ovary measures 5.0 cm. Blood flow to the right ovary is documented with duplex imaging. Endovaginal scan Uterus measures 7.6 cm x 3.6 cm x 5.2 cm. Endometrial stripe measures 7 mm and is homogeneous. Left ovary measures 2.7 cm with small follicles. Left ovarian blood supply is not documented by duplex imaging on this exam. Right ovary cannot be visualized endovaginally. Note that evaluation was very difficult due to severe patient tenderness, particularly in the region of the right ovary. Moderate free fluid in the cul-de-sac and around the adnexa. IMPRESSION: 1. Technically difficult exam due to severe patient tenderness, particularly on the right. No definite right ovary abnormality transabdominally, but could not be visualized endovaginally. 2. Left ovary appears unremarkable, although blood supply is not documented. 3. Uterus unremarkable. 4. Moderate free pelvic fluid, uncertain etiology. Electronically signed by: Cuate Lee MD (10/13/2018 12:18 PM) [facility]
[2018-10-13 12:41] VITALS: BP 151/82
[2018-10-13] MEDS ORDERED: NAPR-683 PO (12:42)
[2018-10-13] MEDS ORDERED: ONDA4TAB7 PO (12:42)
--- NOTE | 2018-10-13 12:42 | PHYS DOC ---
Past History Past Medical History: Asthma, Endometriosis Past Surgical History: No Surgical History Smoking: Non-smoker Alcohol Use: None Drug Use: None Adult General Chief Complaint Chief Complaint: ABDOMINAL PAIN HPI HPI Patient is a 18 year old female with frequent emergency room visits with complaining of abdominal pain who presents with complaining of lower abdominal pain that started suddenly since this morning and pain with radiation to her back. Patient rated her pain 9/10 and complaining of nausea and vomiting with her pain. Patient states her pupils in July and she had negative home test few weeks ago. Patient denies fever and chills, vaginal bleeding or discharge, diarrhea and constipation. Patient states she had the same pain last month with diagnosis of ruptured ovarian cyst. Review of Systems Review of Systems Constitutional: Denies fever or chills [] Eyes: Denies change in visual acuity, redness, or eye pain [] HENT: Denies nasal congestion or sore throat [] Respiratory: Denies cough or shortness of breath [] Cardiovascular: No additional information not addressed in HPI [] GI: Reports abdominal pain, nausea, vomiting, denies bloody stools or diarrhea [ ] : Denies dysuria or hematuria [] Musculoskeletal: Denies back pain or joint pain [] Integument: Denies rash or skin lesions [] Neurologic: Denies headache, focal weakness or sensory changes [] Endocrine: Denies polyuria or polydipsia [] All other systems were reviewed and found to be within normal limits, except as documented in this note. Current Medications Current Medications Current Medications Medications (Trade) Dose Ordered Sig/[facility] Start Time Stop Time Status Last Admin Dose Admin Ketorolac Tromethamine (Toradol Im) 60 mg 1X ONCE 10/13/18 11:30 10/13/18 11:31 DC 10/13/18 11:47 60 MG Ondansetron HCl (Zofran Odt) 4 mg 1X ONCE 10/13/18 10:30 10/13/18 10:31 DC 10/13/18 10:26 4 MG Allergies Allergies Allergies Coded Allergies Type Severity Reaction Last Updated Verified morphine Allergy Unknown 10/13/18 Yes Physical Exam Physical Exam Constitutional: Well nourished, mild acute distress, non-toxic appearance. [] HENT: Normocephalic, atraumatic, oropharynx moist, no oral exudates, nose normal. [] Eyes: PERRLA, EOMI, conjunctiva normal, no discharge. [] Neck: Normal range of motion, no tenderness, supple, no stridor. [] Cardiovascular:Heart rate regular rhythm, no murmur [] Lungs & Thorax: Bilateral breath sounds clear to auscultation [] Abdomen: Bowel sounds normal, soft, no tenderness, suprapubic guarding, no masses, no pulsatile masses. [] Skin: Warm, dry, no erythema, no rash. [] Back: No tenderness, no CVA tenderness. [] Extremities: No tenderness, no cyanosis, no clubbing, ROM intact, no edema. [] Neurologic: Alert and oriented X 3, normal motor function, normal sensory function, no focal deficits noted. [] Psychologic: Affect anxious, judgement normal, mood normal. [] Current Patient Data Vital Signs Vital Signs Date Time Temp Pulse Resp B/P (MAP) Pulse Ox O2 Delivery O2 Flow Rate FiO2 10/13/18 09:42 98.3 86 18 99 Room Air Lab Results Laboratory Tests Test 10/13/18 10:22 10/13/18 10:23 Urine Collection Type Unknown Urine Color Yellow Urine Clarity Hazy Urine pH 5.5 Urine Specific [place] 1.015 Urine Protein Neg (NEG-TRACE) Urine Glucose (UA) Neg mg/dL (NEG) Urine Ketones (Stick) Neg mg/dL (NEG) Urine Blood Neg (NEG) Urine Nitrite Neg (NEG) Urine Bilirubin Neg (NEG) Urine Urobilinogen Dipstick 0.2 mg/dL (0.2 mg/dL) Urine Leukocyte Esterase Neg (NEG) Urine RBC 0 /HPF (0-2) Urine WBC 0 /HPF (0-4) Urine Squamous Epithelial Cells Occ /LPF Urine Bacteria 0 /HPF (0-FEW) POC Urine HCG, Qualitative hcg negative (Negative) EKG EKG [] Radiology/Procedures Radiology/Procedures [address] [address] IMAGING REPORT Signed PATIENT: ISAMAR COTA ACCOUNT: [id number] : 2000 LOCATION: ER AGE: 18 SEX: F EXAM STATUS: REG ER ORD. PHYSICIAN: SAMMI CROWDER MD REASON: left lower quadrant pain PROCEDURE: US PELVIS W/TV Pelvic ultrasound History: Left-sided pelvic pain began today. Transabdominal scan Uterus measures 7.6 x 3.4 x 5.3 cm. Endometrial stripe measures 8 mm. Left ovary measures 4.3 cm. Right ovary measures 5.0 cm. Blood flow to the right ovary is documented with duplex imaging. Endovaginal scan Uterus measures 7.6 cm x 3.6 cm x 5.2 cm. Endometrial stripe measures 7 mm and is homogeneous. Left ovary measures 2.7 cm with small follicles. Left ovarian blood supply is not documented by duplex imaging on this exam. Right ovary cannot be visualized endovaginally. Note that evaluation was very difficult due to severe patient tenderness, particularly in the region of the right ovary. Moderate free fluid in the cul-de-sac and around the adnexa. IMPRESSION: 1. Technically difficult exam due to severe patient tenderness, particularly on the right. No definite right ovary abnormality transabdominally, but could not be visualized endovaginally. 2. Left ovary appears unremarkable, although blood supply is not documented. 3. Uterus unremarkable. 4. Moderate free pelvic fluid, uncertain etiology. Electronically signed by: Cuate Lee MD (10/13/2018 12:18 PM) [facility] DICTATED AND SIGNED BY: CUATE LEE MD DATE: 10/13/18 1212 CC: SAMMI CROWDER MD; LEODAN NICK MD ~ Course & Med Decision Making Course & Med Decision Making Pertinent Labs and Imaging studies reviewed. (See chart for details) discharge: I've spoken with the patient and/or caregivers. I've explained the patient's condition, diagnosis and treatment plan based on information available to me at this time. I've answered the patient's and/or caregivers questions and addressed any concerns. The patient and/or caregivers have a good understanding the patient's diagnosis, condition and treatment plan as can be expected at this point. Vital signs have been stabilized. The patient's condition is stable for discharge from the emergency department. The patient will pursue further outpatient evaluation with her primary care provider or other designated consulting physician as outlined in the discharge instructions. Patient and/or caregivers are agreeable to this plan of care and follow-up instructions have been explained in detail. The patient and/or caregivers have received these instructions in written format and expressed understanding of these discharge instructions. The patient and her caregivers are aware that if any significant change in condition or worsening of symptoms should prompt him to immediately return to this of the closest emergency department. If an emergent department is not readily available I would encourage him to call 911. Gurinder Disclaimer Dragon Disclaimer This electronic medical record was generated, in whole or in part, using a voice recognition dictation system. Departure Departure: Impression: Primary Impression: Lower abdominal pain Disposition: HOME, SELF-CARE (at 1240) Condition: STABLE Referrals: LEODAN NICK MD (PCP) Patient Instructions: Pelvic Pain, Female Additional Instructions: Follow-up with your WARN[facility] [employer] [facility]EOROLOGIST appointment as a scheduled for tomorrow Drink plenty of liquids Follow-up with your primary care physician in 3-5 days Return to ER if not getting better Scripts Ondansetron Hcl (ZOFRAN) 4 Mg Tablet 1 TAB PO Q6HRS for nausea and vomiting, #12 TAB Prov: SAMMI CROWDER MD 10/13/18 Naproxen (NAPROSYN) 500 Mg Tablet 500 MG PO BID for pain, #20 TAB Prov: SAMMI CROWDER MD 10/13/18 SAMMI CROWDER MD Oct 13, 2018 12:42
== END 2018-10-13 12:45 | disposition home or self-care (01) ==
LOC: ER 09:18
DX: R10.32 Left lower quadrant pain (principal); R11.2 Nausea with vomiting, unspecified; J45.909 Unspecified asthma, uncomplicated; Z88.5 Allergy status to narcotic agent
CPT/HCPCS: 76830; 76856; 81001; 81025; 96372; 99284; J1885; Q0162

== ENCOUNTER 2018-11-12 22:24 | Emergency (ER) | payer BC, OTHER ==
[~2018-11-12] VITALS: Ht 170.2 cm; Wt 122.5 kg
[2018-11-12 23:15] LABS: BASO % 0 % (0-3); EOS % 0 % (0-3); HEMATOCRIT 41.5 % (36.0-47.0); HEMOGLOBIN 13.6 g/dL (12.0-15.5); LYMPH # 3.2 x10^3/uL (1.0-4.8); LYMPH % 32 % (24-48); MEAN CORPUSCULAR HEMOGLOBIN 27 pg (25-35); MEAN CORPUSCULAR HGB CONC 33 g/dL (31-37); MEAN CORPUSCULAR VOLUME 83 fL (79-100); MONO # 0.7 x10^3/uL (0.0-1.1); MONO % 7 % (0-9); NEUT % 60 % (31-73); PLATELET COUNT 201 x10^3/uL (140-400); RED BLOOD COUNT 5.02 x10^6/uL (3.50-5.40); RED CELL DISTRIBUTION WIDTH 13.5 % (11.5-14.5)
[2018-11-12 23:26] LABS: ALBUMIN 3.6 g/dL (3.4-5.0); ALBUMIN/GLOBULIN RATIO 0.9 (1.0-1.7); CALCIUM 8.9 mg/dL (8.5-10.1); CREATININE 0.7 mg/dL (0.6-1.0); GFR 106.7; POTASSIUM 3.9 mmol/L (3.5-5.1); TOTAL BILIRUBIN 0.2 mg/dL (0.2-1.0); TOTAL PROTEIN 7.6 g/dL (6.4-8.2)
[2018-11-12] MEDS ORDERED: IV NORMAL SALINE 1,000ML 1,000 ML IV SCH (23:30)
[2018-11-12] MEDS ORDERED: ONDANSETRON PF 4 MG/2 ML VIAL. IV ONE (23:30)
[2018-11-13] MEDS ORDERED: DIPHENOXYLATE/ATROPINE TABLET. PO ONE
[2018-11-13 00:49] LABS: BILIRUBIN,URINE NEG (NEG); CLARITY,URINE CLEAR; COLOR,URINE STRAW; GLUCOSE,URINE NEG (NEG)
[2018-11-13 00:50] LABS: BACTERIA,URINE FEW /HPF (0-FEW); NITRITE,URINE NEG (NEG); RBC,URINE 0 /HPF (0-2); SQUAMOUS EPITHELIAL CELL,UR FEW /LPF; UROBILINOGEN,URINE 0.2 mg/dL (0.2 mg/dL); WBC,URINE 0 /HPF (0-4)
[2018-11-13] MEDS ORDERED: ONDA4TAB7 PO (00:51)
[2018-11-13] MEDS ORDERED: DIPH1TAB PO (00:51)
--- NOTE | 2018-11-13 00:52 | PHYS DOC ---
Past History Past Medical History: Other Past Surgical History: No Surgical History Smoking: Non-smoker Alcohol Use: None Drug Use: None Adult General Chief Complaint Chief Complaint: NAUSEA/VOMITING/DIARRHEA HPI HPI Patient is a 18-year-old female who presents with complaint of abdominal cramping with nausea, vomiting and diarrhea that started yesterday. Patient states that she has had 4-5 episodes of vomiting and diarrhea each per day since it started. Patient states that she is starting to get very sore in her abdomen due to the amount of vomiting and diarrhea. Patient states that she has not been able to keep anything down since onset. She rates pain in her abdomen is being moderate and describes this crampy. She states that nothing is improving her symptoms. She states that if she tries to eat or drink anything symptoms are worsened. Review of Systems Review of Systems Constitutional: Denies fever or chills [] Respiratory: Denies cough or shortness of breath [] Cardiovascular: No additional information not addressed in HPI [] GI: Complains of abdominal cramping with nausea, vomiting and diarrhea [] : Denies dysuria or hematuria [] Musculoskeletal: Denies back pain or joint pain [] All other systems were reviewed and found to be within normal limits, except as documented in this note. Current Medications Current Medications Current Medications Medications (Trade) Dose Ordered Sig/[facility] Start Time Stop Time Status Last Admin Dose Admin Diphenoxylate HCl/ Atropine (Lomotil) 2 tab 1X ONCE 11/13/18 00:00 11/13/18 00:01 DC 11/12/18 23:55 2 TAB Ondansetron HCl (Zofran) 4 mg 1X ONCE 11/12/18 23:30 11/12/18 23:31 DC 11/12/18 23:17 4 MG Sodium Chloride 1,000 ml @ 1,000 mls/hr Q1H 11/12/18 23:30 11/13/18 00:29 DC 11/12/18 23:17 1,000 MLS/HR Allergies Allergies Allergies Coded Allergies Type Severity Reaction Last Updated Verified morphine Allergy Unknown 10/13/18 Yes Physical Exam Physical Exam Constitutional: Well developed, well nourished, no acute distress, non-toxic appearance. [] HENT: Normocephalic, atraumatic, bilateral external ears normal, oropharynx moist, no oral exudates, nose normal. [] Eyes: PERRLA, EOMI, conjunctiva normal, no discharge. [] Neck: Normal range of motion, no tenderness, supple, no stridor. [] Cardiovascular:Heart rate regular rhythm, no murmur [] Lungs & Thorax: Bilateral breath sounds clear to auscultation [] Abdomen: Bowel sounds normal, soft, with left lower abdominal tenderness. [] Skin: Warm, dry, no erythema, no rash. [] Extremities: No tenderness, no cyanosis, no clubbing, ROM intact, no edema. [] Neurologic: Alert and oriented X 3, no focal deficits noted. [] Current Patient Data Vital Signs Vital Signs Date Time Temp Pulse Resp B/P (MAP) Pulse Ox O2 Delivery O2 Flow Rate FiO2 11/12/18 22:37 98.2 98 18 100 Room Air Lab Results Laboratory Tests Test 11/12/18 23:00 White Blood Count 10.0 x10^3/uL (4.0-11.0) Red Blood Count 5.02 x10^6/uL (3.50-5.40) Hemoglobin 13.6 g/dL (12.0-15.5) Hematocrit 41.5 % (36.0-47.0) Mean Corpuscular Volume 83 fL (79-100) Mean Corpuscular Hemoglobin 27 pg (25-35) Mean Corpuscular Hemoglobin Concent 33 g/dL (31-37) Red Cell Distribution Width 13.5 % (11.5-14.5) Platelet Count 201 x10^3/uL (140-400) Neutrophils (%) (Auto) 60 % (31-73) Lymphocytes (%) (Auto) 32 % (24-48) Monocytes (%) (Auto) 7 % (0-9) Eosinophils (%) (Auto) 0 % (0-3) Basophils (%) (Auto) 0 % (0-3) Neutrophils # (Auto) 6.0 x10^3uL (1.8-7.7) Lymphocytes # (Auto) 3.2 x10^3/uL (1.0-4.8) Monocytes # (Auto) 0.7 x10^3/uL (0.0-1.1) Eosinophils # (Auto) 0.0 x10^3/uL (0.0-0.7) Basophils # (Auto) 0.0 x10^3/uL (0.0-0.2) Sodium Level 140 mmol/L (136-145) Potassium Level 3.9 mmol/L (3.5-5.1) Chloride Level 103 mmol/L (98-107) Carbon Dioxide Level 27 mmol/L (21-32) Anion Gap 10 (6-14) Blood Urea Nitrogen 10 mg/dL (7-20) Creatinine 0.7 mg/dL (0.6-1.0) Estimated GFR (Cockcroft-Gault) 106.7 BUN/Creatinine Ratio 14 (6-20) Glucose Level 107 mg/dL (70-99) H Calcium Level 8.9 mg/dL (8.5-10.1) Total Bilirubin 0.2 mg/dL (0.2-1.0) Aspartate Amino Transferase (AST) 17 U/L (15-37) Alanine Aminotransferase (ALT) 24 U/L (14-59) Alkaline Phosphatase 79 U/L (46-116) Total Protein 7.6 g/dL (6.4-8.2) Albumin 3.6 g/dL (3.4-5.0) Albumin/Globulin Ratio 0.9 (1.0-1.7) L Lipase 142 U/L (73-393) EKG EKG [] Radiology/Procedures Radiology/Procedures [] Course & Med Decision Making Course & Med Decision Making Pertinent Labs and Imaging studies reviewed. (See chart for details) [] Dragon Disclaimer Dragon Disclaimer This electronic medical record was generated, in whole or in part, using a voice recognition dictation system. Departure Departure: Impression: Primary Impression: Gastroenteritis Disposition: 01 HOME, SELF-CARE Condition: STABLE Referrals: LEODAN NICK MD (PCP) Patient Instructions: Viral Gastroenteritis Scripts Diphenoxylate Hcl/Atropine (LOMOTIL TABLET) 1 Each Tablet 1 TAB PO TID PRN for DIARRHEA, #15 TAB Prov: WENDY LIN Jr. DO 11/13/18 Ondansetron Hcl (ZOFRAN) 4 Mg Tablet 4 MG PO TID PRN for NAUSEA, #15 TAB Prov: WENDY LIN Jr. DO 11/13/18 WENDY LIN Jr. DO Nov 13, 2018 00:52
[2018-11-13 00:55] VITALS: BP 116/70
== END 2018-11-13 01:03 | disposition home or self-care (01) ==
LOC: ER 22:24
DX: K52.9 Noninfective gastroenteritis and colitis, unspecified (principal); Z88.5 Allergy status to narcotic agent
CPT/HCPCS: 36415; 80053; 81001; 83690; 85025; 96361; 96374; 99283; J2405; J7030

== ENCOUNTER → 2018-12-03 | Outpatient (CLI) | payer OTHER ==
[2018-11-13 00:55] VITALS: BP 116/70
[~2018-12-03] MED LIST changes: +DIPH1TAB PO
--- NOTE | 2018-12-03 14:41 | RAD ---
Chest, 2 views, 12/03/2018: HISTORY: Asthma, chest pain The heart size is normal. No pulmonary infiltrate is seen. There is no evidence of pleural fluid. IMPRESSION: No acute cardiopulmonary abnormality is detected. Electronically signed by: Antolin Hamilton MD (12/03/2018 2:37 PM) [facility]
== END | disposition home or self-care (01) ==
LOC: PMG 10:04
PROVIDERS: ATTEND Registered Nurse
DX: R07.89 Other chest pain (principal); J45.909 Unspecified asthma, uncomplicated
CPT/HCPCS: 71046

== ENCOUNTER → 2018-12-16 | Outpatient (CLI) | payer OTHER ==
--- NOTE | 2018-12-16 11:39 | RAD ---
Thyroid ultrasound12/16/2018 11:00 AM Indication: Thyromegaly Technique: Multiple real-time olsen scale images were obtained over the thyroid. Static images were submitted for interpretation. Comparison: None Findings: The thyroid gland is normal is size. The thyroid has a normal homogenous echotexture. Right thyroid measures 5.9 x 2.0 x 1.3 cm. Left Thyroid measures 5.9 x 1.5 x 1.2 cm. Isthmus measures 3 to 4 mm in thickness. There are no focal lesions or nodules. Color Doppler images demonstrate grossly normal blood flow throughout the gland. IMPRESSION: Normal sonographic appearance of the thyroid gland. Electronically signed by: Harrison Gongora MD (12/16/2018 11:36 AM) [id number]
== END | disposition home or self-care (01) ==
LOC: US 10:29
PROVIDERS: ATTEND Registered Nurse
DX: E04.9 Nontoxic goiter, unspecified (principal)
CPT/HCPCS: 76536

== ENCOUNTER → 2019-01-19 | Outpatient (CLI) | payer OTHER ==
[2019-01-19 16:16] LABS: BASO % 0 % (0-3); EOS # 0.1 x10^3/uL (0.0-0.7); EOS % 2 % (0-3); HEMATOCRIT 42.2 % (36.0-47.0); HEMOGLOBIN 13.9 g/dL (12.0-15.5); LYMPH # 2.3 x10^3/uL (1.0-4.8); LYMPH % 26 % (24-48); MEAN CORPUSCULAR HEMOGLOBIN 27 pg (25-35); MEAN CORPUSCULAR HGB CONC 33 g/dL (31-37); MEAN CORPUSCULAR VOLUME 83 fL (79-100); MONO # 0.6 x10^3/uL (0.0-1.1); MONO % 7 % (0-9); NEUT # 5.7 x10^3uL (1.8-7.7); NEUT % 65 % (31-73); PLATELET COUNT 176 x10^3/uL (140-400); RED BLOOD COUNT 5.09 x10^6/uL (3.50-5.40); RED CELL DISTRIBUTION WIDTH 13.7 % (11.5-14.5); WHITE BLOOD COUNT 8.8 x10^3/uL (4.0-11.0)
[2019-01-19 16:26] LABS: ALBUMIN 3.5 g/dL (3.4-5.0); ALBUMIN/GLOBULIN RATIO 0.9 (1.0-1.7); CALCIUM 9.2 mg/dL (8.5-10.1); CREATININE 0.8 mg/dL (0.6-1.0); GFR 91.4; POTASSIUM 3.8 mmol/L (3.5-5.1); TOTAL BILIRUBIN 0.2 mg/dL (0.2-1.0); TOTAL PROTEIN 7.6 g/dL (6.4-8.2)
[2019-01-20 13:01] LABS: FREE T4 0.86 ng/dL (0.76-1.46); THYROID STIM HORMONE (TSH) 0.713 uIU/mL (0.358-3.740)
[2019-01-20 16:07] LABS: HEMOGLOBIN A1C 5.3 % (4.8-5.6)
== END | disposition home or self-care (01) ==
LOC: PMG 14:43
PROVIDERS: ATTEND Registered Nurse
DX: Z13.6 Encounter for screening for cardiovascular disorders (principal); Z13.29 Encounter for screening for other suspected endocrine disorder; R20.2 Paresthesia of skin
CPT/HCPCS: 36415; 80053; 82607; 83036; 83880; 84439; 84443; 85025

== ENCOUNTER → 2019-01-19 | Outpatient (CLI) | payer OTHER ==
--- NOTE | 2019-01-19 16:18 | RAD ---
LUMBAR SPINE 2-3V History: Low back pain Comparison: CT exam of the abdomen pelvis August 05, 2018 Findings: 3 views of the lumbar spine are submitted. Lumbar vertebral body stature and AP alignment are maintained. Bilateral L5 spondylolysis is better demonstrated on the August 05, 2018 CT abdomen pelvis exam. There is mild degenerative disc disease at L4-5. Impression: 1. There is L5 spondylolysis bilaterally as seen on previous CT exam, no significant spondylolisthesis. There is mild L4-5 degenerative disc disease. Electronically signed by: Hieu Brambila MD (01/19/2019 4:15 PM) [id number]
== END | disposition home or self-care (01) ==
LOC: PMG 14:43
PROVIDERS: ATTEND Registered Nurse
DX: M51.36 Other intervertebral disc degeneration, lumbar region (principal); M47.816 Spondylosis without myelopathy or radiculopathy, lumbar region
CPT/HCPCS: 72100

== ENCOUNTER 2019-05-10 21:24 | Emergency (ER) | payer SELFPAY ==
[~2019-05-10] VITALS: Ht 177.8 cm; Wt 122.5 kg
[2019-05-10] MEDS ORDERED: IV NORMAL SALINE 1,000ML 1,000 ML IV SCH (21:52)
[2019-05-10] MEDS ORDERED: KETOROLAC 30 MG/ML VIAL. IV ONE (22:15)
[2019-05-10] MEDS ORDERED: ONDANSETRON PF 4 MG/2 ML VIAL. IV ONE (22:15)
--- NOTE | 2019-05-10 22:22 | PHYS DOC ---
Past History Past Medical History: Other Past Surgical History: No Surgical History Smoking: Non-smoker Alcohol Use: None Drug Use: None Adult General Chief Complaint Chief Complaint: ABDOMINAL PAIN HPI HPI Patient is a 19-year-old female who presents with complaint of right sided lower abdominal pain that started about 2 weeks ago but has gotten worse today. Patient indicates that she has history of PCOS and states that pain is similar to when she has had ovarian cysts in the past. She states that she has had some nausea but no vomiting. She rates pain currently at an 8 out of 10. She denies any urinary discomfort and has had no fever. She denies any vaginal bleeding or discharge.[] Review of Systems Review of Systems Constitutional: Denies fever or chills [] Respiratory: Denies cough or shortness of breath [] Cardiovascular: No additional information not addressed in HPI [] GI: [place] of lower abdominal pain. Denies vomiting or diarrhea [] : Denies dysuria or hematuria [] Neurologic: Denies headache, focal weakness or sensory changes [] All other systems were reviewed and found to be within normal limits, except as documented in this note. Current Medications Current Medications Current Medications Medications (Trade) Dose Ordered Sig/Malka Start Time Stop Time Status Last Admin Dose Admin Ketorolac Tromethamine (Toradol 30mg Vial) 30 mg 1X ONCE 05/10/19 22:15 05/10/19 22:16 DC Ondansetron HCl (Zofran) 4 mg 1X ONCE 05/10/19 22:15 05/10/19 22:16 DC Sodium Chloride 1,000 ml @ 1,000 mls/hr Q1H 05/10/19 21:52 05/10/19 22:51 Allergies Allergies Allergies Coded Allergies Type Severity Reaction Last Updated Verified morphine Allergy Unknown 10/13/18 Yes Physical Exam Physical Exam Constitutional: Well developed, well nourished, no acute distress, non-toxic appearance. [] HENT: Normocephalic, atraumatic, bilateral external ears normal, oropharynx moist, no oral exudates, nose normal. [] Eyes: PERRLA, EOMI, conjunctiva normal, no discharge. [] Neck: Normal range of motion, no tenderness, supple, no stridor. [] Cardiovascular:Heart rate regular rhythm, no murmur [] Lungs & Thorax: Bilateral breath sounds clear to auscultation [] Abdomen: Bowel sounds normal, soft with mild tenderness to palpation in the right adnexal region. No McBurney's point tenderness. [] Skin: Warm, dry, no erythema, no rash. [] Extremities: No tenderness, no cyanosis, no clubbing, ROM intact, no edema. [] Neurologic: Alert and oriented X 3, no focal deficits noted. [] EKG EKG [] Radiology/Procedures Radiology/Procedures [] Impressions: PROCEDURE: US PELVIS W/TV Pelvic ultrasound to include transabdominal and transvaginal imaging 05/10/2019 CLINICAL HISTORY: Right adnexal pain. TECHNIQUE: Using the distended urinary bladder as a sonographic window, a real-time ultrasound examination of the pelvis was performed. Additionally in an attempt to better evaluate the uterus and adnexa, a transvaginal ultrasound study was performed. Multiple images were obtained. FINDINGS: Comparison study is dated 10/13/2018. The uterus is within normal limits in size and echogenicity. It measures 7.9 x 4.9 x 4.1 cm in longitudinal, transverse, and AP dimensions. The endometrial echo complex measures 4 mm in thickness which is within normal limits. No focal abnormality of the uterus is seen. Both ovaries are within normal limits in size. The right ovary measures 3.4 x 2.5 x 2.5 cm in size. The left ovary measures 3.4 x 2.1 x 1.9 cm in size. A 1.8 cm collapsing follicle is seen involving the right ovary. No free fluid is seen. IMPRESSION: Negative study. Electronically signed by: Jack Kwong MD (05/10/2019 11:55 PM) [facility] DICTATED AND SIGNED BY: JACK KWONG MD DATE: 05/10/19 1191 Course & Med Decision Making Course & Med Decision Making Pertinent Labs and Imaging studies reviewed. (See chart for details) [] Dragon Disclaimer Dragon Disclaimer This electronic medical record was generated, in whole or in part, using a voice recognition dictation system. Departure Departure: Impression: Primary Impression: Lower abdominal pain Additional Impression: Ovarian cyst Disposition: 01 HOME, SELF-CARE Condition: STABLE Referrals: PREMA ROWAN [facility] (PCP) Patient Instructions: Abdominal Pain, Ovarian Cyst Scripts Ondansetron Hcl (ZOFRAN) 4 Mg Tablet 1 TAB PO PRN Q6-8HRS PRN for NAUSEA, #12 TAB Prov: WENDY LIN Jr. DO 05/11/19 Hydrocodone Bit/Acetaminophen (NORCO 5-325 TABLET) 1 Each Tablet 1 TAB PO PRN Q6HRS PRN for PAIN, #12 TAB 0 Refills Prov: WENDY LIN Jr. DO 05/11/19 Problem Qualifiers Additional Impression: Ovarian cyst Laterality: right Qualified Codes: N83.201 - Unspecified ovarian cyst, right side WENDY LIN Jr. DO May 10, 2019 22:22
[2019-05-10 22:39] LABS: BASO % 0 % (0-3); EOS % 0 % (0-3); HEMATOCRIT 41.8 % (36.0-47.0); HEMOGLOBIN 13.4 g/dL (12.0-15.5); LYMPH # 2.5 x10^3/uL (1.0-4.8); LYMPH % 22 % (24-48); MEAN CORPUSCULAR HEMOGLOBIN 27 pg (25-35); MEAN CORPUSCULAR HGB CONC 32 g/dL (31-37); MEAN CORPUSCULAR VOLUME 84 fL (79-100); MONO # 0.7 x10^3/uL (0.0-1.1); MONO % 6 % (0-9); NEUT % 71 % (31-73); PLATELET COUNT 173 x10^3/uL (140-400); RED BLOOD COUNT 4.98 x10^6/uL (3.50-5.40); RED CELL DISTRIBUTION WIDTH 13.6 % (11.5-14.5); WHITE BLOOD COUNT 11.3 x10^3/uL (4.0-11.0)
[2019-05-10 22:47] LABS: ALBUMIN 3.7 g/dL (3.4-5.0); ALBUMIN/GLOBULIN RATIO 0.9 (1.0-1.7); CREATININE 0.8 mg/dL (0.6-1.0); GFR 90.5; POTASSIUM 3.9 mmol/L (3.5-5.1); TOTAL BILIRUBIN 0.3 mg/dL (0.2-1.0); TOTAL PROTEIN 7.9 g/dL (6.4-8.2)
[2019-05-10 23:12] LABS: BACTERIA,URINE FEW /HPF (0-FEW); BILIRUBIN,URINE NEG (NEG); CLARITY,URINE CLEAR; COLOR,URINE YELLOW; GLUCOSE,URINE NEG (NEG); NITRITE,URINE NEG (NEG); RBC,URINE 0 /HPF (0-2); SQUAMOUS EPITHELIAL CELL,UR MANY /LPF; UROBILINOGEN,URINE 0.2 mg/dL (0.2 mg/dL)
--- NOTE | 2019-05-10 23:58 | RAD ---
Pelvic ultrasound to include transabdominal and transvaginal imaging 05/10/2019 CLINICAL HISTORY: Right adnexal pain. TECHNIQUE: Using the distended urinary bladder as a sonographic window, a real-time ultrasound examination of the pelvis was performed. Additionally in an attempt to better evaluate the uterus and adnexa, a transvaginal ultrasound study was performed. Multiple images were obtained. FINDINGS: Comparison study is dated 10/13/2018. The uterus is within normal limits in size and echogenicity. It measures 7.9 x 4.9 x 4.1 cm in longitudinal, transverse, and AP dimensions. The endometrial echo complex measures 4 mm in thickness which is within normal limits. No focal abnormality of the uterus is seen. Both ovaries are within normal limits in size. The right ovary measures 3.4 x 2.5 x 2.5 cm in size. The left ovary measures 3.4 x 2.1 x 1.9 cm in size. A 1.8 cm collapsing follicle is seen involving the right ovary. No free fluid is seen. IMPRESSION: Negative study. Electronically signed by: Jack Jolly MD (05/10/2019 11:55 PM) [employer]
[2019-05-11] MEDS ORDERED: HYDR-3165 PO (00:37)
[2019-05-11] MEDS ORDERED: ONDA4TAB7 PO (00:37)
[2019-05-11 00:59] VITALS: BP 143/86
== END 2019-05-11 01:00 | disposition home or self-care (01) ==
LOC: ER 21:24
DX: N83.201 Unspecified ovarian cyst, right side (principal); Z88.5 Allergy status to narcotic agent
CPT/HCPCS: 36415; 76830; 76856; 80053; 81001; 81025; 83690; 85025; 96374; 96375; 99285; J1885; J2405; J3010; J7030

== ENCOUNTER 2019-06-09 16:20 | Emergency (ER) | payer SELFPAY ==
[~2019-06-09 16:20] MED LIST changes: +HYDR-3165 PO
--- NOTE | 2019-06-09 16:43 | PHYS DOC ---
Past History Past Medical History: Endometriosis, Other Additional Past Medical Histor: pcos Past Surgical History: No Surgical History Smoking: Non-smoker Alcohol Use: None Drug Use: None Adult General Chief Complaint Chief Complaint: NOSEBLEED [facility] HPI 19-year-old female presents with dizziness, vomiting, and general ill feeling. The last 2 days the patient has had vomiting. Today she developed a nosebleed that she said was "very bad and took 4 Kleenex's". It is no longer bleeding. She is feeling dizzy and then. She denies trauma or falls. She's had decreased appetite. She feels crampy in sore all over. She has not measured a fever at home but has chills. Denies dysuria or frequency. Review of Systems Review of Systems Constitutional: chills [] Eyes: Denies change in visual acuity, redness, or eye pain [] HENT: Nasal congestion with sore throat [] Respiratory: Cough without shortness of breath [] Cardiovascular: No additional information not addressed in HPI [] GI: Nausea, vomiting. Denies bloody stools or diarrhea [] : Denies dysuria or hematuria [] Musculoskeletal: Denies back pain or joint pain [] Integument: Denies rash or skin lesions [] Neurologic: Denies headache, focal weakness or sensory changes [] Endocrine: Denies polyuria or polydipsia [] All other systems were reviewed and found to be within normal limits, except as documented in this note. Allergies Allergies Allergies Coded Allergies Type Severity Reaction Last Updated Verified morphine Allergy Unknown 10/13/18 Yes Physical Exam Physical Exam Constitutional: Well developed, morbidly obese, well nourished, no acute distress, non-toxic appearance. [] HENT: Normocephalic, atraumatic, bilateral external ears normal, oropharynx moist, no oral exudates, nose normal. [] Eyes: PERRLA, EOMI, conjunctiva normal, no discharge. [] Neck: Normal range of motion, no tenderness, supple, no stridor. [] Cardiovascular:Heart rate regular rhythm, no murmur [] Lungs & Thorax: Bilateral breath sounds clear to auscultation [] Abdomen: Bowel sounds normal, soft, no tenderness, no masses, no pulsatile masses. [] Skin: Warm, dry, no erythema, no rash. [] Back: No tenderness, no CVA tenderness. [] Extremities: No tenderness, no cyanosis, no clubbing, ROM intact, no edema. [] Neurologic: Alert and oriented X 3, normal motor function, normal sensory function, no focal deficits noted. [] Psychologic: Affect normal, judgement normal, mood normal. [] EKG EKG [] Radiology/Procedures Radiology/Procedures [] Course & Med Decision Making Course & Med Decision Making Pertinent Labs and Imaging studies reviewed. (See chart for details) Patient's labs are unremarkable. Her analysis is unremarkable. Urine drug screen is unremarkable. The patient strep is negative. Patient's discomfort is likely viral URI. Patient stable for discharge at this time. [] Dragon Disclaimer Dragon Disclaimer This electronic medical record was generated, in whole or in part, using a voice recognition dictation system. Departure Departure: Impression: Primary Impression: Viral URI Disposition: 01 HOME, SELF-CARE Condition: STABLE Referrals: PREMA ROWANC (PCP) Patient Instructions: Upper Respiratory Infection, Adult, [id number] CURTIS GARCIA DO Jun 09, 2019 16:43
--- NOTE | 2019-06-09 16:49 | EKG ---
[address] [address] Test Date: 2019-06-09 Test Time: 16:47:18 Pat Name: ISAMAR COTA Department: Room: Gender: F Air Crew Officer: LETITIA : 2000 Requested By: CURTIS GARCIA Order Number: [id number] Reading MD: Measurements Intervals [place] Rate: 100 P: 54 NC: 144 QRS: 86 QRSD: 86 T: 27 QT: 318 QTc: 413 Interpretive Statements SINUS RHYTHM QRS(T) CONTOUR ABNORMALITY CONSIDER ANTEROLATERAL MYOCARDIAL DAMAGE POSSIBLY ABNORMAL ECG RI6.01 No previous ECG available for comparison
[2019-06-09 17:12] LABS: BASO % 0 % (0-3); EOS # 0.1 x10^3/uL (0.0-0.7); EOS % 1 % (0-3); HEMATOCRIT 42.2 % (36.0-47.0); HEMOGLOBIN 13.4 g/dL (12.0-15.5); LYMPH # 1.4 x10^3/uL (1.0-4.8); LYMPH % 19 % (24-48); MEAN CORPUSCULAR HEMOGLOBIN 27 pg (25-35); MEAN CORPUSCULAR HGB CONC 32 g/dL (31-37); MEAN CORPUSCULAR VOLUME 86 fL (79-100); MONO # 0.6 x10^3/uL (0.0-1.1); MONO % 8 % (0-9); NEUT # 5.5 x10^3uL (1.8-7.7); NEUT % 73 % (31-73); PLATELET COUNT 139 x10^3/uL (140-400); RED BLOOD COUNT 4.92 x10^6/uL (3.50-5.40); RED CELL DISTRIBUTION WIDTH 14.3 % (11.5-14.5); WHITE BLOOD COUNT 7.6 x10^3/uL (4.0-11.0)
[2019-06-09 17:26] LABS: ALBUMIN 3.3 g/dL (3.4-5.0); ALBUMIN/GLOBULIN RATIO 0.8 (1.0-1.7); CALCIUM 8.7 mg/dL (8.5-10.1); CREATININE 0.8 mg/dL (0.6-1.0); GFR 90.5; POTASSIUM 3.7 mmol/L (3.5-5.1); TOTAL BILIRUBIN 0.2 mg/dL (0.2-1.0); TOTAL PROTEIN 7.2 g/dL (6.4-8.2)
[2019-06-09 18:38] LABS: AMPHETAMINE/METHAMPHETAMINE NEG (NEG); BARBITURATES NEG (NEG); BENZODIAZEPINES NEG (NEG); CANNABINOIDS NEG (NEG); COCAINE NEG (NEG); METHADONE NEG (NEG); OPIATES NEG (NEG); PHENCYCLIDINE NEG (NEG)
[2019-06-09 18:47] LABS: BILIRUBIN,URINE NEG (NEG); CLARITY,URINE CLEAR; COLOR,URINE YELLOW; GLUCOSE,URINE NEG (NEG); NITRITE,URINE NEG (NEG); UROBILINOGEN,URINE 0.2 mg/dL (0.2 mg/dL)
[2019-06-09 18:48] LABS: BACTERIA,URINE 0 /HPF (0-FEW); RBC,URINE 0 /HPF (0-2); SQUAMOUS EPITHELIAL CELL,UR OCC /LPF; WBC,URINE RARE /HPF (0-4)
[2019-06-09 18:56] VITALS: BP 136/89
[2019-06-09 19:10] LABS: PLT ESTIMATE DECREASED (ADEQUATE)
== END 2019-06-09 19:55 | disposition home or self-care (01) ==
LOC: ER 16:20
DX: J06.9 Acute upper respiratory infection, unspecified (principal); B97.89 Other viral agents as the cause of diseases classified elsewhere; R04.0 Epistaxis; Z88.5 Allergy status to narcotic agent
CPT/HCPCS: 36415; 80053; 80307; 81001; 84484; 85025; 87070; 87880; 93005; 99285-25

== ENCOUNTER 2019-07-18 08:24 | Emergency (ER) | payer OTHER ==
[~2019-07-18] VITALS: Ht 177.8 cm; Wt 121.5 kg
[2019-07-18] MEDS ORDERED: ONDANSETRON PF 4 MG/2 ML VIAL. IVP ONE (09:30)
[2019-07-18] MEDS ORDERED: IV NORMAL SALINE 1,000ML 1,000 ML IV ONE (09:30)
[2019-07-18 10:02] LABS: BASO # 0.1 x10^3/uL (0.0-0.2); BASO % 1 % (0-3); EOS # 0.1 x10^3/uL (0.0-0.7); EOS % 1 % (0-3); HEMOGLOBIN 13.8 g/dL (12.0-15.5); LYMPH % 22 % (24-48); MEAN CORPUSCULAR HEMOGLOBIN 28 pg (25-35); MEAN CORPUSCULAR HGB CONC 32 g/dL (31-37); MEAN CORPUSCULAR VOLUME 86 fL (79-100); MONO # 0.6 x10^3/uL (0.0-1.1); MONO % 6 % (0-9); NEUT # 6.3 x10^3uL (1.8-7.7); NEUT % 70 % (31-73); PLATELET COUNT 189 x10^3/uL (140-400); RED BLOOD COUNT 5.02 x10^6/uL (3.50-5.40)
[2019-07-18 10:17] LABS: ALBUMIN 3.6 g/dL (3.4-5.0); ALBUMIN/GLOBULIN RATIO 0.9 (1.0-1.7); CALCIUM 8.6 mg/dL (8.5-10.1); CREATININE 0.8 mg/dL (0.6-1.0); GFR 90.5; MAGNESIUM 1.9 mg/dL (1.8-2.4); POTASSIUM 3.9 mmol/L (3.5-5.1); TOTAL BILIRUBIN 0.3 mg/dL (0.2-1.0); TOTAL PROTEIN 7.8 g/dL (6.4-8.2)
[2019-07-18] MEDS ORDERED: ONDA4TAB7 PO (10:28)
[2019-07-18] MEDS ORDERED: PRED-220 PO (10:28)
[2019-07-18] MEDS ORDERED: FLUT9.9S NS (10:28)
[2019-07-18] MEDS ORDERED: ALBU2.5V8 INH (10:28)
--- NOTE | 2019-07-18 10:28 | PHYS DOC ---
Past History Past Medical History: Asthma, Endometriosis, Other Additional Past Medical Histor: pcos Past Surgical History: No Surgical History Smoking: Non-smoker Alcohol Use: None Drug Use: None Adult General Chief Complaint Chief Complaint: NAUSEA/VOMITING/DIARRHEA HPI HPI Patient is a 19 year old F who presents with nasal congestion starting 3-4 days ago. Starting this morning she had nausea vomiting and loose stools. She's had several episodes of nausea and vomiting. She describes mild dull generalized abdominal pain with no focal pain. She is not having shortness of breath currently however over the past several days she has had more shortness of breath. She does have asthma. She is taking her control her breathing location. She is using her albuterol more often. She has no other exacerbating or relieving factors. She has no other associated symptoms. Review of Systems Review of Systems Constitutional: Denies fever or chills [] Eyes: Denies change in visual acuity, redness, or eye pain [] HENT: Denies nasal congestion or sore throat [] Respiratory: Negative Except history of present illness Cardiovascular: No additional information not addressed in HPI [] GI: Negative except history of present illness : Denies dysuria or hematuria [] Musculoskeletal: Denies back pain or joint pain [] Integument: Denies rash or skin lesions [] Neurologic: Denies headache, focal weakness or sensory changes [] Endocrine: Denies polyuria or polydipsia [] All other systems were reviewed and found to be within normal limits, except as documented in this note. Family History Family History No pertinent medical sugar was reported Current Medications Current Medications Current Medications Medications (Trade) Dose Ordered Sig/Malka Start Time Stop Time Status Last Admin Dose Admin Ondansetron HCl (Zofran) 4 mg 1X ONCE 07/18/19 09:30 07/18/19 09:31 DC 07/18/19 09:56 4 MG Sodium Chloride 1,000 ml @ 1,000 mls/hr 1X ONCE 07/18/19 09:30 07/18/19 10:29 07/18/19 09:30 1,000 MLS/HR Allergies Allergies Allergies Coded Allergies Type Severity Reaction Last Updated Verified morphine Allergy Unknown 10/13/18 Yes Physical Exam Physical Exam Constitutional: Well developed, well nourished, no acute distress, non-toxic appearance. [] HENT: Normocephalic, atraumatic, mild nasal mucosal swelling bilaterally Eyes: PERRLA, EOMI, conjunctiva normal, no discharge. [] Neck: Normal range of motion, no tenderness, supple, no stridor. [] Cardiovascular:Heart rate regular rhythm, Lungs & Thorax: Bilateral breath sounds clear to auscultation [] Abdomen: Bowel sounds normal, soft, no masses, no pulsatile masses. [] Mild generalized nonfocal tenderness to palpation Skin: Warm, dry, no erythema, no rash. [] Back: No tenderness, no CVA tenderness. [] Extremities: No tenderness, no cyanosis, no clubbing, ROM intact, no edema. [] Neurologic: Alert and oriented X 3, normal motor function, normal sensory function, no focal deficits noted. [] Psychologic: Affect normal, judgement normal, mood normal. [] Current Patient Data Vital Signs Vital Signs Date Time Temp Pulse Resp B/P (MAP) Pulse Ox O2 Delivery O2 Flow Rate FiO2 07/18/19 09:58 70 16 128/78 (95) 99 Room Air 07/18/19 09:27 98.6 Lab Results Laboratory Tests Test 07/18/19 09:14 07/18/19 09:45 POC Urine HCG, Qualitative hcg negative (Negative) White Blood Count 9.0 x10^3/uL (4.0-11.0) Red Blood Count 5.02 x10^6/uL (3.50-5.40) Hemoglobin 13.8 g/dL (12.0-15.5) Hematocrit 43.0 % (36.0-47.0) Mean Corpuscular Volume 86 fL (79-100) Mean Corpuscular Hemoglobin 28 pg (25-35) Mean Corpuscular Hemoglobin Concent 32 g/dL (31-37) Red Cell Distribution Width 14.0 % (11.5-14.5) Platelet Count 189 x10^3/uL (140-400) Neutrophils (%) (Auto) 70 % (31-73) Lymphocytes (%) (Auto) 22 % (24-48) L Monocytes (%) (Auto) 6 % (0-9) Eosinophils (%) (Auto) 1 % (0-3) Basophils (%) (Auto) 1 % (0-3) Neutrophils # (Auto) 6.3 x10^3uL (1.8-7.7) Lymphocytes # (Auto) 2.0 x10^3/uL (1.0-4.8) Monocytes # (Auto) 0.6 x10^3/uL (0.0-1.1) Eosinophils # (Auto) 0.1 x10^3/uL (0.0-0.7) Basophils # (Auto) 0.1 x10^3/uL (0.0-0.2) Sodium Level 142 mmol/L (136-145) Potassium Level 3.9 mmol/L (3.5-5.1) Chloride Level 105 mmol/L (98-107) Carbon Dioxide Level 25 mmol/L (21-32) Anion Gap 12 (6-14) Blood Urea Nitrogen 8 mg/dL (7-20) Creatinine 0.8 mg/dL (0.6-1.0) Estimated GFR (Cockcroft-Gault) 90.5 BUN/Creatinine Ratio 10 (6-20) Glucose Level 109 mg/dL (70-99) H Calcium Level 8.6 mg/dL (8.5-10.1) Magnesium Level 1.9 mg/dL (1.8-2.4) Total Bilirubin 0.3 mg/dL (0.2-1.0) Aspartate Amino Transferase (AST) 12 U/L (15-37) L Alanine Aminotransferase (ALT) 22 U/L (14-59) Alkaline Phosphatase 51 U/L (46-116) Total Protein 7.8 g/dL (6.4-8.2) Albumin 3.6 g/dL (3.4-5.0) Albumin/Globulin Ratio 0.9 (1.0-1.7) L EKG EKG [] Radiology/Procedures Radiology/Procedures [] Course & Med Decision Making Course & Med Decision Making Pertinent Labs and Imaging studies reviewed. (See chart for details) Eliane noted moderate improvement in symptoms with nausea medication and IV fluids only. Her labs are normal. Her symptoms most consistent with a viral respiratory infection. Her GI symptoms are likely related to mucous drainage. She also was noted to have mild worsening in her asthma symptoms. She will be given a prescription for oral steroids and albuterol with respect to her asthma. Dragon Disclaimer Dragon Disclaimer This electronic medical record was generated, in whole or in part, using a voice recognition dictation system. Departure Departure: Impression: Primary Impression: Asthma exacerbation Additional Impression: Viral gastroenteritis Disposition: 01 HOME, SELF-CARE Condition: STABLE Referrals: PREMA ROWAN [employer]EL[employer]-[facility] (PCP) Patient Instructions: Asthma, Adult, Viral Gastroenteritis Additional Instructions: Eliane was seen for nasal congestion, nausea/vomiting and diarrhea. No emergency medical condition was found on history or physical exam. She did have normal labs. She was found have symptoms consistent with a viral respiratory infection and/or viral gastroenteritis and she was also found have symptoms of asthma exacerbation. She is given prescriptions for nasal steroid sprays and advised to use nasal saline rinses regularly. She was also given a prescription for nausea medication. For her asthma exacerbation. She is advised follow-up with her primary care doctor in the next 3-5 days. Scripts Prednisone (PREDNISONE) 10 Mg Tablet 40 MG PO DAILY for asthma for 5 Days, #20 TAB Prov: SANTI SHIRLEY MD 07/18/19 Ondansetron Hcl (ZOFRAN) 4 Mg Tablet 1 TAB PO Q6HRS for nausea, #20 TAB Prov: SANTI SHIRLEY MD 07/18/19 Fluticasone Propionate (Flonase Allergy Relief) 9.9 Ml [place].susp 1 SPRAYS NS BID for nasal congestion for 7 Days, BOTTLE Prov: SANTI SHIRLEY MD 07/18/19 Albuterol Sulfate (PROAIR HFA INHALER) 8.5 Gm Hfa.aer.ad 1 PUFF INH PRN Q6HRS PRN for SHORTNESS OF BREATH for 30 Days, INHALER 0 Refills Prov: SANTI SHIRLEY MD 07/18/19 Problem Qualifiers Primary Impression: Asthma exacerbation Asthma severity: mild Asthma persistence: intermittent Qualified Codes: J45.21 - Mild intermittent asthma with (acute) exacerbation SANTI SHIRLEY MD Jul 18, 2019 10:28
[2019-07-18] MEDS ORDERED: methylPREDNISolone SOD SUCC PF 40 MG/ML VIAL. ONE (10:42)
[2019-07-18 10:55] VITALS: BP 129/65
[2019-07-18] MEDS ORDERED: methylPREDNISolone SOD SUCC PF 40 MG/ML VIAL. IV ONE (11:00)
== END 2019-07-18 10:55 | disposition home or self-care (01) ==
LOC: ER 08:24
DX: J45.21 Mild intermittent asthma with (acute) exacerbation (principal); A08.4 Viral intestinal infection, unspecified; R11.2 Nausea with vomiting, unspecified; Z88.5 Allergy status to narcotic agent
CPT/HCPCS: 36415; 80053; 81025; 83735; 85025; 96361; 96374; 96375; 99284; J2405; J2920; J7030

== ENCOUNTER → 2019-08-04 | Outpatient (CLI) | payer OTHER ==
[2019-07-18 10:55] VITALS: BP 129/65
[~2019-08-04] MED LIST changes: +ALBU2.5V8 INH; +FLUT9.9S NS; +PRED-220 PO
--- NOTE | 2019-08-04 15:21 | RAD ---
EXAM: Pelvic sonogram. HISTORY: Pain. TECHNIQUE: Transabdominal and transvaginal sonographic imaging of the pelvis was performed. COMPARISON: 05/10/2019. FINDINGS: The uterus is normal in size. The endometrial stripe is normal in thickness, measuring 7 mm. The ovaries are normal in size and demonstrate normal blood flow. There is no adnexal mass or dominant cyst. There are small ovarian follicles. There is a small amount of nonspecific pelvic free fluid. IMPRESSION: 1. Small amount of nonspecific pelvic free fluid. 2. Otherwise, unremarkable pelvic sonogram. Electronically signed by: Dana Garrison MD (08/04/2019 3:18 PM) [place] [id number]
--- NOTE | 2019-08-04 15:22 | RAD ---
EXAM: Abdomen sonogram. HISTORY: Pain. TECHNIQUE: Sonographic imaging of the abdomen was performed. COMPARISON: CT dated 08/05/2018. FINDINGS: There is hepatomegaly. There is hepatic steatosis. No focal hepatic lesion is seen. The gallbladder and common bile duct are unremarkable. The kidneys and spleen are unremarkable. The pancreas is obscured due to bowel gas. The aorta is normal in caliber. The inferior vena cava is patent. IMPRESSION: 1. Hepatomegaly and hepatic steatosis. 2. Obscured pancreas due to bowel gas. Electronically signed by: Dana Garrison MD (08/04/2019 3:19 PM) [facility]
== END | disposition home or self-care (01) ==
LOC: US 12:09
PROVIDERS: ATTEND Registered Nurse
DX: K76.0 Fatty (change of) liver, not elsewhere classified (principal)
CPT/HCPCS: 76700; 76830; 76856

== ENCOUNTER 2019-08-08 19:56 | Emergency (ER) | payer OTHER ==
[~2019-08-08] VITALS: Ht 172.7 cm; Wt 122.0 kg
--- NOTE | 2019-08-08 20:11 | PHYS DOC ---
Past History Past Medical History: Asthma, Endometriosis, Other Additional Past Medical Histor: pcos Past Surgical History: No Surgical History Smoking: Non-smoker Alcohol Use: None Drug Use: None Adult General Chief Complaint Chief Complaint: CHEST PAIN HPI HPI Patient is a 19-year-old female presenting with chest pain and low back pain. Onset about 5:00 while at rest at work sitting down was not doing anything when it started that sharp it hurts to take a deep breath she feels in her right anterior chest and also in her right lower back seems to radiate down towards her back area. Patient did a recent history of ovarian cyst rupture she is actually getting over that the pain in her abdomen is actually slowly improving. The white blood count was somewhat elevated when she was diagnosed with that recently no fever that she knows of she has had a little bit of a cough the pain hurts more to take a deep breath she does feel somewhat short of breath as well. of note she has frequent ER visits for multiple different complaints over the last couple of years Review of Systems Review of Systems Constitutional: Denies fever or chills [] Eyes: Denies change in visual acuity, redness, or eye pain [] HENT: Denies nasal congestion or sore throat [] Respiratory: Denies cough or shortness of breath [] Cardiovascular: No additional information not addressed in HPI [] GI: Denies abdominal pain, nausea, vomiting, bloody stools or diarrhea [] : Denies dysuria or hematuria [] Musculoskeletal: Denies back pain or joint pain [] Integument: Denies rash or skin lesions [] Neurologic: Denies headache, focal weakness or sensory changes [] Endocrine: Denies polyuria or polydipsia [] All other systems were reviewed and found to be within normal limits, except as documented in this note. Allergies Allergies Allergies Coded Allergies Type Severity Reaction Last Updated Verified morphine Allergy Unknown 10/13/18 Yes Physical Exam Physical Exam Constitutional: Well developed, well nourished, no acute distress, non-toxic appearance. [] HENT: Normocephalic, atraumatic, bilateral external ears normal, oropharynx moist, no oral exudates, nose normal. [] Eyes: PERRLA, EOMI, conjunctiva normal, no discharge. [] Neck: Normal range of motion, no tenderness, supple, no stridor. [] Cardiovascular:Heart rate regular rhythm, no murmur [] Lungs & Thorax: Bilateral breath sounds clear to auscultation []anterior chest wall tenderness is reproduced Abdomen: Bowel sounds normal, soft, no tenderness, no masses, no pulsatile masses. [] Skin: Warm, dry, no erythema, no rash. [] Back: Significant reproducible tenderness to palpation noted in the right posterior back area. Extremities: No tenderness, no cyanosis, no clubbing, ROM intact, no edema. [] Neurologic: Alert and oriented X 3, normal motor function, normal sensory function, no focal deficits noted. [] Psychologic: Affect normal, judgement normal, mood normal. [] Current Patient Data Vital Signs perature (Fahrenheit): * 98.4 degrees F (97.6-99.5) Patient Temperature * 98.4 degrees F (97.5-99.5) Temperature Source * Oral Blood Pressure Systolic * 123 mm Hg (100-140) Blood Pressure Diastolic * 78 mm Hg (60-100) Blood Pressure Mean * 93 mm Hg Blood Pressure Location * Right Arm Blood Pressure Source * Automatic Cuff Pulse Rate * 112 beats per minute (60-90) H Pulse Assessment Method * Monitor Respiratory Rate * 20 breaths per minute (12-24) Oxygen Delivery Method * Room Air Bedside Pulse Oximetry * 98 % EKG EKG []Sinus tach rate 102 no acute ischemic changes noted interpreted by me the time of encounter Radiology/Procedures Radiology/Procedures [] Impressions: IMPRESSION: 1. Significantly degraded study for pulmonary emboli due to large patient body habitus. The segmental and subsegmental pulmonary arteries are difficult to evaluate. Taking this into consideration, no pulmonary embolism is seen. Collectively no acute abnormality is identified throughout the chest to account for the patient's symptoms. 2. Hepatic steatosis. Electronically signed by: GIANCARLO PACK MD (08/08/2019 10:26 PM) [facility] Course & Med Decision Making Course & Med Decision Making Pertinent Labs and Imaging studies reviewed. (See chart for details) []Noted the UTI the patient did tell us later that she actually is early on treatment for that she just picked up the antibiotic prescription today Primary complaint initially was that of chest pains for the above workup was initiated then on reevaluation he really appeared she was having more sharp low back pain that was reproducible in nature I did have somewhat low suspicion for pulmonary embolism overall noted the CT read I think in light of the normal oxygenation patient's bili is reproducible lumbar back pain I don't think that further testing is warranted at this time she is very well-appearing no leg swelling or pain. She is ready to be discharged home I think that is reasonable at this time Dragon Disclaimer Dragon Disclaimer This electronic medical record was generated, in whole or in part, using a voice recognition dictation system. Departure Departure: Impression: Primary Impression: Urinary tract infection Additional Impression: Low back pain Disposition: 01 HOME, SELF-CARE Condition: IMPROVED Referrals: PREMA ROWAN ENVIRONMENT[facility] COMPLIANCE SPECIALIST-C (PCP) Problem Qualifiers LEONARD WICK MD Aug 08, 2019 20:11
[2019-08-08] MEDS ORDERED: ACETAMINOPHEN 500 MG TABLET PO ONE (20:30)
[2019-08-08 21:01] LABS: BASO # 0.1 x10^3/uL (0.0-0.2); BASO % 1 % (0-3); EOS % 1 % (0-3); HEMATOCRIT 42.3 % (36.0-47.0); HEMOGLOBIN 13.7 g/dL (12.0-15.5); LYMPH # 1.6 x10^3/uL (1.0-4.8); LYMPH % 18 % (24-48); MEAN CORPUSCULAR HEMOGLOBIN 27 pg (25-35); MEAN CORPUSCULAR HGB CONC 33 g/dL (31-37); MEAN CORPUSCULAR VOLUME 85 fL (79-100); MONO # 0.6 x10^3/uL (0.0-1.1); MONO % 6 % (0-9); NEUT # 6.5 x10^3uL (1.8-7.7); NEUT % 74 % (31-73); PLATELET COUNT 182 x10^3/uL (140-400); RED BLOOD COUNT 5.01 x10^6/uL (3.50-5.40); RED CELL DISTRIBUTION WIDTH 13.1 % (11.5-14.5); WHITE BLOOD COUNT 8.7 x10^3/uL (4.0-11.0)
[2019-08-08 21:10] LABS: BILIRUBIN,URINE NEG (NEG); CLARITY,URINE CLEAR; COLOR,URINE YELLOW; GLUCOSE,URINE NEG (NEG); NITRITE,URINE NEG (NEG); RBC,URINE OCC /HPF (0-2); UROBILINOGEN,URINE 0.2 mg/dL (0.2 mg/dL)
[2019-08-08 21:11] LABS: BACTERIA,URINE FEW /HPF (0-FEW); SQUAMOUS EPITHELIAL CELL,UR OCC /LPF
[2019-08-08 21:25] LABS: ALBUMIN 3.8 g/dL (3.4-5.0); ALBUMIN/GLOBULIN RATIO 0.8 (1.0-1.7); CALCIUM 9.1 mg/dL (8.5-10.1); POTASSIUM 3.5 mmol/L (3.5-5.1); TOTAL BILIRUBIN 0.4 mg/dL (0.2-1.0); TOTAL PROTEIN 8.3 g/dL (6.4-8.2)
[2019-08-08] MEDS ORDERED: CONTRAST GIVEN MC PRN (21:30)
[2019-08-08] MEDS ORDERED: KETOROLAC 15 MG/ML VIAL. IVP ONE (21:45)
[2019-08-08] MEDS ORDERED: IOHEXOL 350 MG/ML 100 ML VIAL. IV ONE (22:00)
[2019-08-08] MEDS ORDERED: CEPHALEXIN 250 MG CAPSULE PO ONE (22:00)
--- NOTE | 2019-08-08 22:29 | RAD ---
Study: CT CHEST WITH CONTRAST - PULMONARY ANGIOGRAM History: Chest pain. Concern for pulmonary embolism. Comparison: None. Technique: Helical CT of the chest performed after the administration of 100 cc Omnipaque 350 intravenous contrast and timed for angiographic evaluation of the pulmonary arteries per PE protocol. Coronal and sagittal 3D MIP reformations were obtained. One or more of the following individualized dose reduction techniques were utilized for this examination: 1. Automated exposure control 2. Adjustment of the mA and/or kV according to patient size 3. Use of iterative reconstruction technique. Findings: Degraded evaluation for pulmonary emboli detection mainly due to large patient body habitus. Taking into consideration limited evaluation of the segmental and subsegmental pulmonary arteries, no pulmonary embolism is well seen. No main pulmonary artery dilatation. No findings to suggest overt right heart strain. Unremarkable aorta and visualized great vessels. No significant volume pericardial fluid. No mediastinal or hilar adenopathy. No lobar infiltrate, pneumothorax or pleural effusion. Mild volume loss such as at the left lower lobe. The visualized thyroid is unremarkable. No axillary lymphadenopathy. Hepatic steatosis. No focal osseous abnormality. IMPRESSION: 1. Significantly degraded study for pulmonary emboli due to large patient body habitus. The segmental and subsegmental pulmonary arteries are difficult to evaluate. Taking this into consideration, no pulmonary embolism is seen. Collectively no acute abnormality is identified throughout the chest to account for the patient's symptoms. 2. Hepatic steatosis. Electronically signed by: GIANCARLO PACK MD (08/08/2019 10:26 PM) [facility]
[2019-08-08 22:34] VITALS: BP 137/80
--- NOTE | 2019-08-09 00:20 | RAD ---
CHEST AP ONLY History: Shortness of breath, chest pain Comparison: December 03, 2018 Findings: Single view of the chest is submitted. There is no infiltrate, pneumothorax, or effusion. The pericardial cardiac silhouette is within normal limits in size. Impression: 1. There is no radiographic evidence of acute cardiopulmonary disease. Electronically signed by: Hieu Brambila MD (08/09/2019 12:17 AM) [facility]
--- NOTE | 2019-08-09 13:31 | EKG ---
[address] [address] Test Date: 2019-08-08 Test Time: 20:07:36 Pat Name: ISAMAR COTA Department: Room: Gender: F [employer]: : 2000 Requested By: LEONARD WICK Order Number: [id number] Reading MD: Jason Chapman MD Measurements Intervals Stanton Rate: 102 P: 40 KS: 124 QRS: 65 QRSD: 88 T: -3 QT: 298 QTc: 392 Interpretive Statements SINUS TACHYCARDIA NON-SPECIFIC ST/T CHANGES Electronically Signed On 08-09-2019 13:31:31 [employer] SERVICES SPECIALIST by Jason Chapman MD
== END 2019-08-08 22:50 | disposition home or self-care (01) ==
LOC: ER 19:56
DX: N39.0 Urinary tract infection, site not specified (principal); M54.5 Low back pain; R07.89 Other chest pain; J45.909 Unspecified asthma, uncomplicated; Z88.5 Allergy status to narcotic agent
CPT/HCPCS: 36415; 71045; 71275; 80053; 81001; 81025; 83690; 84484; 85025; 85379; 87086; 93005; 96374; 99285; J1885; Q9967; 87186

== ENCOUNTER 2019-10-08 21:41 | Emergency (ER) | payer OTHER ==
[~2019-10-08] VITALS: Ht 177.8 cm; Wt 116.6 kg
--- NOTE | 2019-10-08 21:47 | PHYS DOC ---
Past History Past Medical History: Asthma, Endometriosis, Migraines, Other Additional Past Medical Histor: pcos Past Surgical History: No Surgical History Smoking: Non-smoker Alcohol Use: None Drug Use: None Adult General Chief Complaint Chief Complaint: HEADACHE " .. This is a bad migraine.. I ve had it for a week straight.. When they are this bad.. I get a shot ... " HPI HPI Patient is a 19 year old female who presents with above hx and complaints of migraine headache. Patient reports multiple episodes of migraines in the past couple years. Has not followed up with primary care. Pt. states when migraines are this bad she even get dizzy. Patient denies any trauma. Patient denies any immunosuppression. Patient denies any travel. No recent fever or chills. Does state when her migraines. Severe she has to go the emergency room for IV medications. Patient is not on a migraine suppressive meds. Patient normally fo llows with Dr. Rowan. Review of Systems Review of Systems Constitutional: Denies fever or chills [] Eyes: Denies change in visual acuity, redness, or eye pain [] HENT: Denies nasal congestion or sore throat [] Respiratory: Denies cough or shortness of breath [] Cardiovascular: No additional information not addressed in HPI [] GI: Denies abdominal pain,, vomiting, bloody stools or diarrhea []. Patient has complaints of nausea : Denies dysuria or hematuria [] Musculoskeletal: Denies back pain or joint pain [] Integument: Denies rash or skin lesions [] Neurologic: Complaints of headache,. Denies focal weakness or sensory changes [] Endocrine: Denies polyuria or polydipsia [] All other systems were reviewed and found to be within normal limits, except as documented in this note. Family History Family History Noncontributory Current Medications Current Medications See nursing for home medications Allergies Allergies Allergies Coded Allergies Type Severity Reaction Last Updated Verified morphine Allergy Unknown 10/13/18 Yes Physical Exam Physical Exam Constitutional: Moderate acute distress, non-toxic appearance. [] HENT: Normocephalic, atraumatic, bilateral external ears normal, oropharynx moist, no oral exudates, nose normal. [] Eyes: PERRLA, EOMI, conjunctiva normal, no discharge. [] Mild photophobia. Fundus benign. Neck: Normal range of motion, no tenderness, supple, no stridor. [] Cardiovascular: Bradycardia Heart rate regular rhythm, no murmur [] Lungs & Thorax: Bilateral breath sounds equal at apexes with a few scattered wheezes on auscultation [] Abdomen: Bowel sounds normal, soft, no tenderness, no masses, no pulsatile masses. Obese. Skin: Warm, dry, no erythema, no rash. [] Back: No tenderness, no CVA tenderness. [] Extremities: No tenderness, no cyanosis, no clubbing, ROM intact, no edema. [] Neurologic: Alert and oriented X 3, normal motor function, normal sensory function, no focal deficits noted. []DTRs +2 patella and brachial. No drift. Patient name Monge no problems. Patient right-hand dominant. Distal sensory intact. Psychologic: Affect anxious, judgement normal, mood normal. [] EKG EKG My interpretation of EKG shows a sinus arrhythmia at 64 bpm. Does have some right axis deviation. No findings acute STEMI of contralateral changes.[] Radiology/Procedures Radiology/Procedures [][place] [address] IMAGING REPORT Signed PATIENT: ISAMAR COTA YACCOUNT: [id number] : 2000 LOCATION: ER AGE: 19 SEX: F EXAM STATUS: REG ER ORD. PHYSICIAN: MARIE MONTOYA MD REASON: head ache PROCEDURE: CT HEAD WO CONTRAST Exam: CT head INDICATION: Headache TECHNIQUE: Sequential axial images through the head were obtained without the administration of IV contrast. Comparisons: None FINDINGS: No focal parenchymal lesion or hemorrhage is identified. There is no midline shift or sulcal effacement. No acute vascular territory infarction is identified. Lyon-white distinction is preserved. The ventricular system is within normal limits without compression hydrocephalus. The basal cisterns are well maintained. The visualized portions of the paranasal sinuses and mastoid air cells are well-pneumatized. No acute fractures. IMPRESSION: No acute intracranial abnormality. Exposure: One or more of the following in the visualized dose reduction techniques were utilized for this examination: 1. Automated exposure control 2. Adjustment of the MA and/or KV according to patient size Use of iterative of reconstructive technique Electronically signed by: Luiz Lopez MD (10/08/2019 10:26 PM) [id number] DICTATED AND SIGNED BY: LUIZ LOPEZ MD DATE: 10/08/192225 CC: MARIE MONTOYA MD; PREMA ROWAN BEATER ENGINEER HELPER-C ~ Course & Med Decision Making Course & Med Decision Making Pertinent Labs and Imaging studies reviewed. (See chart for details) Discussed risk s and benefits of spinal tap. Pt. declined spinal tap at this time. Patient to take Compazine 10 mg with 50 mg of Benadryl for nausea and vomiting. Take [id number] Tylenol and ibuprofen. Patient take Imitrex at the beginning of headache. Patient never take more than 200 mg in 24-hour hours. Follow-up primary care. Follow-up with neurology. Return if any concerns. Impression- 1. Migraine 2. Anxiety 3. Morbid obesity [] Dragon Disclaimer Dragon Disclaimer This electronic medical record was generated, in whole or in part, using a voice recognition dictation system. Departure Departure: Disposition: 01 HOME/RESIDENCE PRIOR TO ADM Condition: STABLE Referrals: PREMA ROWAN BEATER ENGINEER HELPER-C (PCP) Scripts Prochlorperazine Maleate (Compazine) 10 Mg Tablet 10 MG PO QIDPRN PRN for nv, #30 TAB Prov: MARIE MONTOYA MD 10/08/19 Sumatriptan Succinate (IMITREX) 100 Mg Tablet 100 MG PO DAILY for at begnining of headache, #10 TAB Prov: MARIE MONTOYA MD 10/08/19 Dragon Disclaimer This chart was dictated in whole or in part using Voice Recognition software in a busy, high-work load, and often noisy Emergency Department environment. It may contain unintended and wholly unrecognized errors or omissions. Dragon Disclaimer This chart was dictated in whole or in part using Voice Recognition software in a busy, high-work load, and often noisy Emergency Department environment. It may contain unintended and wholly unrecognized errors or omissions. Dragon Disclaimer This chart was dictated in whole or in part using Voice Recognition software in a busy, high-work load, and often noisy Emergency Department environment. It may contain unintended and wholly unrecognized errors or omissions. MARIE MONTOYA MD Oct 08, 2019 21:47
[2019-10-08] MEDS ORDERED: IV RINGERS SOLUTION,LACTATED 1,000 ML IV SCH (21:59)
[2019-10-08] MEDS ORDERED: diphenhydrAMINE 50 MG/ML VIAL IVP ONE (22:15)
[2019-10-08] MEDS ORDERED: PROCHLORPERAZINE 10 MG/2 ML VIAL. IV ONE (22:15)
[2019-10-08 22:19] LABS: BARBITURATES NEG (NEG); BENZODIAZEPINES NEG (NEG); CANNABINOIDS NEG (NEG); COCAINE NEG (NEG); METHADONE NEG (NEG); OPIATES NEG (NEG); PHENCYCLIDINE NEG (NEG)
[2019-10-08 22:21] LABS: BACTERIA,URINE FEW /HPF (0-FEW); BILIRUBIN,URINE NEG (NEG); CLARITY,URINE HAZY; COLOR,URINE YELLOW; GLUCOSE,URINE NEG (NEG); NITRITE,URINE NEG (NEG); RBC,URINE OCC /HPF (0-2); SQUAMOUS EPITHELIAL CELL,UR FEW /LPF; UROBILINOGEN,URINE 0.2 mg/dL (0.2 mg/dL)
[2019-10-08 22:22] LABS: AMPHETAMINE/METHAMPHETAMINE NEG (NEG)
--- NOTE | 2019-10-08 22:30 | RAD ---
Exam: CT head INDICATION: Headache TECHNIQUE: Sequential axial images through the head were obtained without the administration of IV contrast. Comparisons: None FINDINGS: No focal parenchymal lesion or hemorrhage is identified. There is no midline shift or sulcal effacement. No acute vascular territory infarction is identified. Lyon-white distinction is preserved. The ventricular system is within normal limits without compression hydrocephalus. The basal cisterns are well maintained. The visualized portions of the paranasal sinuses and mastoid air cells are well-pneumatized. No acute fractures. IMPRESSION: No acute intracranial abnormality. Exposure: One or more of the following in the visualized dose reduction techniques were utilized for this examination: 1. Automated exposure control 2. Adjustment of the MA and/or KV according to patient size Use of iterative of reconstructive technique Electronically signed by: Luiz Cabezas MD (10/08/2019 10:26 PM) [id number]
[2019-10-08 23:05] LABS: BASO % 0 % (0-3); EOS % 0 % (0-3); HEMATOCRIT 42.3 % (36.0-47.0); HEMOGLOBIN 13.4 g/dL (12.0-15.5); LYMPH # 2.3 x10^3/uL (1.0-4.8); LYMPH % 28 % (24-48); MEAN CORPUSCULAR HEMOGLOBIN 27 pg (25-35); MEAN CORPUSCULAR HGB CONC 32 g/dL (31-37); MEAN CORPUSCULAR VOLUME 85 fL (79-100); MONO # 0.5 x10^3/uL (0.0-1.1); MONO % 6 % (0-9); NEUT # 5.5 x10^3uL (1.8-7.7); NEUT % 66 % (31-73); PLATELET COUNT 153 x10^3/uL (140-400); RED BLOOD COUNT 4.98 x10^6/uL (3.50-5.40); RED CELL DISTRIBUTION WIDTH 13.6 % (11.5-14.5); WHITE BLOOD COUNT 8.3 x10^3/uL (4.0-11.0)
[2019-10-08 23:06] LABS: CALCIUM 8.6 mg/dL (8.5-10.1); CREATININE 0.7 mg/dL (0.6-1.0); GFR 105.6; POTASSIUM 3.6 mmol/L (3.5-5.1)
[2019-10-08] MEDS ORDERED: SUMAtriptan SUCC 6 MG/0.5 ML VIAL SQ ONE (23:15)
[2019-10-08] MEDS ORDERED: KETOROLAC 30 MG/ML VIAL. IVP ONE (23:15)
[2019-10-08] MEDS ORDERED: ONDANSETRON PF 4 MG/2 ML VIAL. IVP ONE (23:15)
[2019-10-08] MEDS ORDERED: PROC10TA57 PO (23:16)
[2019-10-08] MEDS ORDERED: SUMA100T3 PO (23:16)
[2019-10-09 00:18] LABS: SEDIMENTATION RATE 19 (0-25)
[2019-10-09 00:55] VITALS: BP 159/93
== END 2019-10-09 00:55 | disposition home or self-care (01) ==
LOC: ER 21:41
DX: G43.909 Migraine, unspecified, not intractable, without status migrainosus (principal); F41.9 Anxiety disorder, unspecified; E66.01 Morbid (severe) obesity due to excess calories; Z68.36 Body mass index [BMI] 36.0-36.9, adult; J45.909 Unspecified asthma, uncomplicated; Z88.5 Allergy status to narcotic agent
CPT/HCPCS: 36415; 70450; 80048; 80307; 81001; 81025; 85025; 85651; 87086; 93005; 96372; 96374; 96375; 99285; J1885; J2405; J3030; J7120

== ENCOUNTER 2019-12-28 10:25 | Emergency (ER) | payer OTHER ==
[~2019-12-28] VITALS: Ht 175.3 cm; Wt 117.1 kg
[~2019-12-28 10:25] MED LIST changes: +PROC10TA57 PO; +SUMA100T3 PO
[2019-12-28 10:30] VITALS: BP 144/92
[2019-12-28] MEDS ORDERED: ONDA4TAB12 PO (10:41)
--- NOTE | 2019-12-28 10:41 | PHYS DOC ---
Past History Past Medical History: Asthma, Endometriosis, Migraines, Other Additional Past Medical Histor: pcos Past Surgical History: No Surgical History Smoking: Non-smoker Alcohol Use: None Drug Use: None General Adult EDM: Chief Complaint: NAUSEA/VOMITING/DIARRHEA HPI: HPI: Patient is a healthy 19-year-old female who presents with a two-week history of nausea and occasional vomiting. For the last 2 years she has had a control implant in her left arm. Yesterday she is noted some vaginal spotting. She states she is sure that it was not urine. She denies any dysuria or gross hematuria. She has had no fever chills or sweats. She states she has never had any vaginal bleeding as long as she has been on this control implant. [] Review of Systems: Review of Systems: Constitutional: Denies fever or chills Eyes: Denies change in visual acuity HENT: Denies nasal congestion or sore throat Respiratory: Denies cough or shortness of breath Cardiovascular: Denies chest pain or edema GI: Reports nausea : Denies dysuria Musculoskeletal: Denies back pain or joint pain Integument: Denies rash Neurologic: Denies headache, focal weakness or sensory changes Endocrine: Denies polyuria or polydipsia Lymphatic: Denies swollen glands Psychiatric: Denies depression or anxiety Heart Score: Risk Factors: Risk Factors: DM, Current or recent (<one month) smoker, HTN, HLP, family history of CAD, obesity. Risk Scores: Score 0 - 3: 2.5% MACE over next 6 weeks - Discharge Home Score 4 - 6: 20.3% MACE over next 6 weeks - Admit for Clinical Observation Score 7 - 10: 72.7% MACE over next 6 weeks - Early Invasive Strategies Allergies: Allergies: Allergies Coded Allergies Type Severity Reaction Last Updated Verified morphine Allergy Unknown 10/13/18 Yes Physical Exam: PE: Constitutional: Well developed, well nourished, no acute distress, non-toxic appearance. [] HENT: Normocephalic, atraumatic, bilateral external ears normal, oropharynx moist, no oral exudates, nose normal. [] Eyes: PERRLA, EOMI, conjunctiva normal, no discharge. [] Neck: Normal range of motion, no tenderness, supple, no stridor. [] Cardiovascular:Heart rate regular rhythm, no murmur [] Lungs & Thorax: Bilateral breath sounds clear to auscultation [] Abdomen: Bowel sounds normal, soft, no tenderness, no masses, no pulsatile masses. [] Skin: Warm, dry, no erythema, no rash. [] Back: No tenderness, no CVA tenderness. [] Extremities: No tenderness, no cyanosis, no clubbing, ROM intact, no edema. [] Neurologic: Alert and oriented X 3, normal motor function, normal sensory function, no focal deficits noted. [] Psychologic: Affect normal, judgement normal, mood normal. [] EKG: EKG: [] Radiology/Procedures: Radiology/Procedures: [] Course & Med Decision Making: Course & Med Decision Making Pertinent Labs and Imaging studies reviewed. (See chart for details) [] Dragon Disclaimer: Dragon Disclaimer: This electronic medical record was generated, in whole or in part, using a voice recognition dictation system. Departure Departure: Impression: Primary Impression: Nausea Additional Impression: Urinary tract infection Qualified Codes: N39.0 - Urinary tract infection, site not specified Disposition: HOME, SELF-CARE Condition: STABLE Referrals: PREMA ROWAN OFFBEARER-C (PCP) Patient Instructions: Nausea and Vomiting, Urinary Tract Infection Scripts Ciprofloxacin Hcl (CIPRO) 500 Mg Tablet 1 TAB PO BID for UTI, #10 TAB Prov: FIDE MCKEON DO 12/28/19 Ondansetron (ONDANSETRON ODT) 4 Mg Tab.rapdis 1 TAB PO PRN Q6-8HRS for NAUSEA, #16 TAB Prov: FIDE MCKEON DO 12/28/19 FIDE MCKEON DO Dec 28, 2019 10:41
[2019-12-28] MEDS ORDERED: ONDANSETRON ODT 4 MG TAB.RAPDIS PO ONE (11:00)
[2019-12-28 11:04] LABS: BILIRUBIN,URINE NEG (NEG); CLARITY,URINE HAZY; COLOR,URINE YELLOW; GLUCOSE,URINE NEG (NEG)
[2019-12-28 11:05] LABS: BACTERIA,URINE 0 /HPF (0-FEW); NITRITE,URINE NEG (NEG); SQUAMOUS EPITHELIAL CELL,UR MANY /LPF; UROBILINOGEN,URINE 0.2 mg/dL (0.2 mg/dL)
[2019-12-28 11:08] LABS: U PREG PATIENT NEGATIVE (NEG)
[2019-12-28] MEDS ORDERED: CIPR500T94 PO (11:26)
== END 2019-12-28 11:30 | disposition home or self-care (01) ==
LOC: ER 10:25
DX: N39.0 Urinary tract infection, site not specified (principal); G43.909 Migraine, unspecified, not intractable, without status migrainosus; J45.909 Unspecified asthma, uncomplicated; E28.2 Polycystic ovarian syndrome; Z88.5 Allergy status to narcotic agent
CPT/HCPCS: 81001; 81025; 87086; 99283; Q0162

== ENCOUNTER 2020-02-01 09:27 | Emergency (ER) | payer OTHER ==
[~2020-02-01] VITALS: Ht 175.3 cm; Wt 117.0 kg
[~2020-02-01 09:27] MED LIST changes: +CIPR500T94 PO; +ONDA4TAB12 PO
--- NOTE | 2020-02-01 10:14 | RAD ---
KNEE RIGHT 4V History: Fall. Pain. Technique: 4 views right knee. Comparison: None. Findings: Normal alignment. No fracture. No significant knee joint effusion. Soft tissues unremarkable. Impression: 1. No acute osseous abnormality. Electronically signed by: Fly Foster DO (02/01/2020 10:12 AM) [facility]
--- NOTE | 2020-02-01 10:14 | RAD ---
HAND RIGHT 3V History: Fall. Pain. Technique: 3 views right hand. Comparison: None. Findings: Normal alignment. No fracture. Soft tissues unremarkable. Impression: 1. No acute osseous abnormality. Electronically signed by: Fly Foster DO (02/01/2020 10:11 AM) [facility]
[2020-02-01 10:38] LABS: BACTERIA,URINE 0 /HPF (0-FEW); BILIRUBIN,URINE NEG (NEG); CLARITY,URINE CLEAR; COLOR,URINE YELLOW; GLUCOSE,URINE NEG (NEG); NITRITE,URINE NEG (NEG); SQUAMOUS EPITHELIAL CELL,UR MOD /LPF; UROBILINOGEN,URINE 0.2 mg/dL (0.2 mg/dL)
[2020-02-01] MEDS ORDERED: ONDA4TAB7 PO (11:13)
[2020-02-01] MEDS ORDERED: NITR100C62 PO (11:13)
[2020-02-01 11:24] VITALS: BP 153/97
--- NOTE | 2020-02-01 12:09 | PHYS DOC ---
Past History Past Medical History: Asthma, Endometriosis, Other Additional Past Medical Histor: PCOS, Past Surgical History: No Surgical History Smoking: Non-smoker Alcohol Use: None Drug Use: None Adult General Chief Complaint Chief Complaint: MULTIPLE COMPLAINTS HPI HPI Patient is a 19 year old female with past medical history of PCOS who presents with multiple complaints. Yesterday she fell while working and hit her right hand and knee. She fell directly onto the knee. She did not have any twisting. She has been able to walk but it is been very painful. She is able to move her hand fully, however it is also painful. She denies any numbness or tingling. P atient also states that she has been having lower abdominal cramping and spotting. She does not typically have spotting but she did have spotting a couple of months ago. At that time she had a UTI and she is concerned she may have a UTI again. She is also had some nausea with this. She denies any upper abdominal pain. She does not currently have any abdominal pain or cramping. She has not had any kind of fever, dysuria, vaginal discharge. Review of Systems Review of Systems General: Denies fever, chills, sweats, fatigue Eyes: Denies drainage, blurred vision HENT: Denies rhinorrhea, sore throat Respiratory: Denies cough, shortness of breath, wheezing Cardiac: Denies edema, palpitations, chest pain GI: Denies abdominal pain, vomiting. Reports abdominal cramping, nausea MSK: Denies back pain, neck pain Skin: Denies rash, jaundice Neuro: Denies headache, dizziness Psychiatric: Denies SI/HI Allergies Allergies Allergies Coded Allergies Type Severity Reaction Last Updated Verified morphine Allergy Unknown 10/13/18 Yes Physical Exam Physical Exam Constitutional: Well developed, well nourished, Cooperative, NAD, non-toxic appearing HEENT: Normocephalic, atraumatic, oropharynx moist, EOMI, PERRL, no drainage from eyes, normal conjunctiva Neck: Supple, normal range of motion, no stridor Cardiovascular: RRR, 2+ radial pulses bilaterally, no edema Respiratory: CTA bilaterally, no respiratory distress, no wheezing/crackles Abdomen: Soft, nontender, nondistended, no masses Skin: Warm, dry, intact Extremities: No obvious deformities Neurologic: Alert and Oriented x3, motor and sensory function grossly normal, no focal deficits Psychologic: Normal affect, normal judgment, normal mood. No SI/HI Current Patient Data Vital Signs Vital Signs Date Time Temp Pulse Resp B/P (MAP) Pulse Ox O2 Delivery O2 Flow Rate FiO2 02/01/20 11:24 87 18 153/97 (115) 98 Room Air 02/01/20 09:46 98.5 Lab Results Laboratory Tests Test 02/01/20 09:53 02/01/20 10:00 Urine Collection Type Unknown Urine Color Yellow Urine Clarity Clear Urine pH 6.0 Urine Specific Amorita 1.025 Urine Protein 30 mg/dl (NEG-TRACE) Urine Glucose (UA) Neg mg/dL (NEG) Urine Ketones (Stick) Trace mg/dL (NEG) Urine Blood Large (NEG) Urine Nitrite Neg (NEG) Urine Bilirubin Neg (NEG) Urine Urobilinogen Dipstick 0.2 mg/dL (0.2 mg/dL) Urine Leukocyte Esterase Neg (NEG) Urine RBC 11-20 /HPF (0-2) Urine WBC 1-4 /HPF (0-4) Urine Squamous Epithelial Cells Mod /LPF Urine Bacteria 0 /HPF (0-FEW) POC Urine HCG, Qualitative hcg negative (Negative) EKG EKG [] Radiology/Procedures Radiology/Procedures [] Course & Med Decision Making Course & Med Decision Making Pertinent Labs and Imaging studies reviewed. (See chart for details) Patient is a 19-year-old female who presents to the emergency room complaining of hand and knee pain after a fall. X-rays were ordered and were normal. Patient is also having lower abdominal cramping and spotting. This is likely related to dysfunctional uterine bleeding. UA shows a few white cells and patient will be treated with 3 days of Macrobid. She will also be given Zofran for nausea. I discussed with her that if she has persistent pain, fever, vomiting, inability to eat she should return to the emergency room for further evaluation. Patient's test results and vitals while in the ED were fully reviewed and discussed with the patient. Patient is stable and at this time does not need admission to the hospital. We have discussed strict return precautions and the importance of following up with their Primary Care Physician. Patient stated understanding and was given an opportunity to ask any questions. Dragon Disclaimer Dragon Disclaimer This electronic medical record was generated, in whole or in part, using a voice recognition dictation system. Departure Departure: Impression: Primary Impression: UTI (urinary tract infection) Additional Impressions: Hand pain Fall Disposition: HOME/RESIDENCE PRIOR TO ADM Condition: STABLE Patient Instructions: Urinary Tract Infection, Nbor-bk-Tqfv, Knee Pain, Uxtk-xb-Xarx Scripts Nitrofurantoin Monohyd/M-Cryst (MACROBID 100 MG CAPSULE) 100 Mg Capsule 1 CAP PO BID for UTI for 5 Days, #10 CAP 0 Refills Prov: URIEL GRIFFIN MD 02/01/20 Ondansetron Hcl (ZOFRAN) 4 Mg Tablet 1 TAB PO PRN Q6HRS PRN for NAUSEA, #6 TAB Prov: URIEL GRIFFIN MD 02/01/20 Problem Qualifiers URIEL GRIFFIN MD Feb 01, 2020 12:09
== END 2020-02-01 11:27 | disposition home or self-care (01) ==
LOC: ER 09:27
DX: N39.0 Urinary tract infection, site not specified (principal); M79.641 Pain in right hand; M25.561 Pain in right knee; Z88.5 Allergy status to narcotic agent; J45.909 Unspecified asthma, uncomplicated; E28.2 Polycystic ovarian syndrome; W18.39XA Other fall on same level, initial encounter; Y93.89 Activity, other specified; Y92.89 Other specified places as the place of occurrence of the external cause; Y99.8 Other external cause status
CPT/HCPCS: 73130; 73564; 81001; 81025; 99284

== ENCOUNTER 2020-02-25 08:31 | Emergency (ER) | payer OTHER ==
[~2020-02-25] VITALS: Ht 175.3 cm; Wt 116.0 kg
[~2020-02-25 08:31] MED LIST changes: +NITR100C62 PO
[2020-02-25 08:35] VITALS: BP 132/70
[2020-02-25 09:13] LABS: COLOR,URINE YELLOW
[2020-02-25 09:14] LABS: BILIRUBIN,URINE NEG (NEG); CLARITY,URINE CLEAR; GLUCOSE,URINE NEG (NEG); UROBILINOGEN,URINE 0.2 mg/dL (0.2 mg/dL)
[2020-02-25 09:15] LABS: BACTERIA,URINE 0 /HPF (0-FEW); NITRITE,URINE NEG (NEG); RBC,URINE OCC /HPF (0-2); SQUAMOUS EPITHELIAL CELL,UR MOD /LPF
[2020-02-25] MEDS ORDERED: IV NORMAL SALINE 1,000ML 1,000 ML IV ONE (09:15)
[2020-02-25] MEDS ORDERED: cefTRIAXone IM 250 MG VIAL IM ONE (09:15)
[2020-02-25] MEDS ORDERED: FAMOTIDINE 20 MG/2 ML VIAL IVP ONE (09:15)
[2020-02-25] MEDS ORDERED: ONDANSETRON PF 4 MG/2 ML VIAL. IVP ONE (09:15)
[2020-02-25] MEDS ORDERED: KETOROLAC 15 MG/ML VIAL. IVP ONE (09:20)
[2020-02-25] MEDS ORDERED: AZITHROMYCIN 250 MG TABLET. PO ONE (09:20)
[2020-02-25 10:21] LABS: BASO % 0 % (0-3); EOS % 0 % (0-3); HEMATOCRIT 42.5 % (36.0-47.0); HEMOGLOBIN 13.8 g/dL (12.0-15.5); LYMPH # 1.5 x10^3/uL (1.0-4.8); LYMPH % 10 % (24-48); MEAN CORPUSCULAR HEMOGLOBIN 28 pg (25-35); MEAN CORPUSCULAR HGB CONC 33 g/dL (31-37); MEAN CORPUSCULAR VOLUME 85 fL (79-100); MONO % 7 % (0-9); NEUT # 12.8 x10^3uL (1.8-7.7); NEUT % 84 % (31-73); PLATELET COUNT 224 x10^3/uL (140-400); RED CELL DISTRIBUTION WIDTH 13.2 % (11.5-14.5); WHITE BLOOD COUNT 15.4 x10^3/uL (4.0-11.0)
[2020-02-25 10:28] LABS: CALCIUM 9.2 mg/dL (8.5-10.1); CREATININE 0.9 mg/dL (0.6-1.0); POTASSIUM 3.8 mmol/L (3.5-5.1)
[2020-02-25 10:34] LABS: ALBUMIN 3.4 g/dL (3.4-5.0); ALBUMIN/GLOBULIN RATIO 0.7 (1.0-1.7); MAGNESIUM 2.2 mg/dL (1.8-2.4); TOTAL BILIRUBIN 0.8 mg/dL (0.2-1.0); TOTAL PROTEIN 8.4 g/dL (6.4-8.2)
--- NOTE | 2020-02-25 10:38 | PHYS DOC ---
Past History Past Medical History: Asthma, Endometriosis, Other Additional Past Medical Histor: PCOS, Past Surgical History: No Surgical History Smoking: Non-smoker Alcohol Use: None Drug Use: None General Adult EDM: Chief Complaint: ABDOMINAL PAIN HPI: HPI: 19-year-old female presents with report of lower abdominal/pelvis pain x10 days. Reports past medical history of PCOS and endometriosis. Patient also reports several month history of irregular periods. Patient reports she has not been able to follow with a [employer] for the past 3 years. Reports yesterday did have some nausea and vomiting. Reports has not trialed any [id number] pain medication because she reports it "does not work ". Denies dysuria. Denies . Reports some concern for STDs as recent partner had "cheated on her ". Review of Systems: Review of Systems: Constitutional: Denies fever or chills Eyes: Denies redness or eye pain HENT: Denies nasal congestion or sore throat Respiratory: Denies cough or shortness of breath Cardiovascular: Denies chest pain or palpitations GI: Reports abdominal pain, nausea, and vomiting /[employer]: Denies dysuria or hematuria; reports vaginal discharge and irregular bleeding Musculoskeletal: Denies back pain or joint pain Integument: Denies rash or skin lesions Neurologic: Denies headache, focal weakness or sensory changes Complete systems were reviewed and found to be within normal limits, except as documented in this note. Current Medications: Current Meds: Current Medications Medications (Trade) Dose Ordered Sig/Malka Start Time Stop Time Status Last Admin Dose Admin Azithromycin (Zithromax) 1,000 mg 1X ONCE 02/25/20 09:20 02/25/20 09:21 DC 02/25/20 09:42 1,000 MG Ceftriaxone Sodium (Rocephin Im) 250 mg 1X ONCE 02/25/20 09:15 02/25/20 09:19 DC 02/25/20 09:42 250 MG Famotidine (Pepcid Vial) 20 mg 1X ONCE 02/25/20 09:15 02/25/20 09:19 DC 02/25/20 09:24 20 MG Ketorolac Tromethamine (Toradol 15mg Vial) 15 mg 1X ONCE 02/25/20 09:20 02/25/20 09:21 DC 02/25/20 09:24 15 MG Ondansetron HCl (Zofran) 4 mg 1X ONCE 02/25/20 09:15 02/25/20 09:19 DC 02/25/20 09:24 4 MG Sodium Chloride 1,000 ml @ 1,000 mls/hr 1X ONCE 02/25/20 09:15 02/25/20 10:15 DC 02/25/20 09:24 1,000 MLS/HR Allergies: Allergies: Allergies Coded Allergies Type Severity Reaction Last Updated Verified morphine Allergy Unknown 10/13/18 Yes Physical Exam: PE: Constitutional: Well developed, well nourished, no acute distress, non-toxic appearance HENT: Normocephalic, atraumatic Eyes: Conjunctiva normal, no discharge Neck: Normal range of motion, no tenderness, supple Lungs & Thorax: No respiratory distress, equal chest rise and fall Abdomen: Soft, lower pelvic tenderness, no guarding/rebound tenderness/distention Pelvic: Maintenance [place] Danita NORMAN, white/yellow discharge noted, cervix irritated, CMT and right adnexal tenderness on exam Skin: Warm, dry, no erythema, no rash Back: No tenderness, no CVA tenderness Extremities: No tenderness, ROM intact, no edema Neurologic: Alert and oriented X 3, no focal deficits noted Psychologic: Affect normal, judgment normal Current Patient Data: Labs: Laboratory Tests Test 02/25/20 08:40 02/25/20 08:58 02/25/20 09:13 Urine Collection Type Unknown Urine Color Yellow Urine Clarity Clear Urine pH 6.5 Urine Specific [place] 1.025 Urine Protein 100 mg/dl (NEG-TRACE) Urine Glucose (UA) Neg mg/dL (NEG) Urine Ketones (Stick) 40 mg/dL (NEG) Urine Blood Neg (NEG) Urine Nitrite Neg (NEG) Urine Bilirubin Neg (NEG) Urine Urobilinogen Dipstick 0.2 mg/dL (0.2 mg/dL) Urine Leukocyte Esterase Trace (NEG) Urine RBC Occ /HPF (0-2) Urine WBC 5-10 /HPF (0-4) Urine Squamous Epithelial Cells Mod /LPF Urine Bacteria 0 /HPF (0-FEW) Urine Mucus Mod /LPF POC Urine HCG, Qualitative hcg negative (Negative) White Blood Count 15.4 x10^3/uL (4.0-11.0) H Red Blood Count 5.00 x10^6/uL (3.50-5.40) Hemoglobin 13.8 g/dL (12.0-15.5) Hematocrit 42.5 % (36.0-47.0) Mean Corpuscular Volume 85 fL (79-100) Mean Corpuscular Hemoglobin 28 pg (25-35) Mean Corpuscular Hemoglobin Concent 33 g/dL (31-37) Red Cell Distribution Width 13.2 % (11.5-14.5) Platelet Count 224 x10^3/uL (140-400) Neutrophils (%) (Auto) 84 % (31-73) H Lymphocytes (%) (Auto) 10 % (24-48) L Monocytes (%) (Auto) 7 % (0-9) Eosinophils (%) (Auto) 0 % (0-3) Basophils (%) (Auto) 0 % (0-3) Neutrophils # (Auto) 12.8 x10^3uL (1.8-7.7) H Lymphocytes # (Auto) 1.5 x10^3/uL (1.0-4.8) Monocytes # (Auto) 1.0 x10^3/uL (0.0-1.1) Eosinophils # (Auto) 0.0 x10^3/uL (0.0-0.7) Basophils # (Auto) 0.0 x10^3/uL (0.0-0.2) Platelet Estimate Pending Microbiology 02/25/20 Wet Prep - Final, Complete Vital Signs: Vital Signs Date Time Temp Pulse Resp B/P (MAP) Pulse Ox O2 Delivery O2 Flow Rate FiO2 02/25/20 08:35 99.0 105 16 132/70 (90) 97 Room Air EKG: EKG: [] Radiology/Procedures: Radiology/Procedures: PROCEDURE: US PELVIS W/TV EXAM: Pelvic Ultrasound Complete INDICATION: Reason: pelvic pain, hx of PCOS and endometrosis / Spl. Instructions: / History: ? TECHNIQUE: Real-time ultrasound of the pelvis with permanent freeze-frame documentation. Transabdominal and endovaginal ultrasound was performed. COMPARISON:?None. ? FINDINGS: ? UTERUS:?Uterus 8.3 x 4.9 x 4.0 cm.? Endometrial thickness 0.6 cm. No uterine or endometrial abnormality. ? RIGHT OVARY/ADNEXA: Right ovary 6.1 x 1.9 x 3.8 cm.? Abutting the right ovary is a homogenously hypoechoic mass without internal vascularity measuring 4.4 x 4.0 cm that could represent an endometrioma. Normal ovarian blood flow. LEFT OVARY/ADNEXA:?Left adnexal mass measures 5.8 x 3.1 x 4.1 cm. It appears contain multiple compartments with fluid fluid levels.?Normal follicles are not well seen and there are vascular internal channels demonstrated on color Doppler imaging. ? OTHER:?Small amount of pelvic free fluid. ? IMPRESSION: ? 1. No evidence of ovarian torsion. 2. Abutting the otherwise normal right ovary is a right adnexal 4.4 cm mass that could represent an endometrioma. 3. A normal left ovary is not well seen. Instead, the left adnexa contains a 5.8 cm adnexal mass with multiple compartments containing fluid fluid levels, by vascular channels. This could represent a left ovary with multiple endometriomas. Follow-up is recommended in 6 weeks to assess resolution of potential hemorrhagic cysts. Electronically signed by: Luda Hendrickson MD (02/25/2020 10:34 AM) [id number] Course & Med Decision Making: Course & Med Decision Making Pertinent Labs and Imaging studies reviewed. (See chart for details) Patient with past medical history of endometriosis and PCOS presents with report of lower abdominal/pelvic pain with associated nausea and vomiting. Symptomati c treatment provided. IV fluid hydration given. Labs obtained and posted to chart. UA without signs of infection. Urine test negative. Pelvic exam performed. Chlamydia/gonorrhea cultures pending. Empiric antibiotics given. Wet mount negative. Ultrasound with findings of bilateral adnexal masses with possibility of endometriomas. A copy of US provided to patient to give to PCP/[employer]. KTRACs with last narcotic pain meds of [place] 5/325mg from May 2019. Patient stable for discharge with outpatient follow-up with PCP/[employer]. [employer] referral provided. Discussed findings and plan with patient, who acknowledges understanding and agreement. Gurinder Disclaimer: Gurinder Disclaimer: This electronic medical record was generated, in whole or in part, using a voice recognition dictation system. Departure Departure: Impression: Primary Impression: Pelvic pain Additional Impressions: Endometriosis Ovarian cyst Qualified Codes: N83.201 - Unspecified ovarian cyst, right side; N83.202 - U nspecified ovarian cyst, left side Disposition: HOME/RESIDENCE PRIOR TO ADM Condition: STABLE Referrals: ANN-MARIE MCCORMICK (PCP) Patient Instructions: Endometriosis, Ovarian Cyst, [id number], Pelvic Pain, Female, [id number] Additional Instructions: Please call and make appointment with [employer]: Dr. Russ Graham Address: [address] [place] [address] Scripts Ondansetron (ONDANSETRON ODT) 4 Mg Tab.rapdis 1 TAB PO PRN Q6-8HRS PRN for NAUSEA, #16 TAB Prov: DRU HENRY DO 02/25/20 Naproxen (NAPROXEN) 375 Mg Tablet.dr 375 MG PO TID PRN PRN for PAIN, #30 TAB Prov: DRU HENRY DO 02/25/20 Hydrocodone Bit/Acetaminophen (NORCO 5-325 TABLET) 1 Each Tablet 0.5-1 TAB PO Q6HRS for PAIN, #10 TAB Prov: DRU HENRY DO 02/25/20 Justification of Admission: Justification of Admission: Justification of Admission Dx: N/A DRU HENRY DO Feb 25, 2020 10:38
[2020-02-25] MEDS ORDERED: NAPR375T5 PO (10:58)
[2020-02-25] MEDS ORDERED: ONDA4TAB12 PO (10:58)
[2020-02-25] MEDS ORDERED: HYDR-3165 PO (10:58)
[2020-02-25 12:15] LABS: % BANDS 4 % (0-9); % LYMPHS 3 % (24-48); % MONOS 8 % (0-10); % MYELOS 1 % (0-0); % SEGS 84 % (35-66)
[2020-02-25 12:30] LABS: PLT ESTIMATE ADEQUATE (ADEQUATE)
[2020-02-27 21:06] LABS: CHLAMYDIA PROBE Positive (Negative)
== END 2020-02-25 11:11 | disposition home or self-care (01) ==
LOC: ER 08:31
DX: N83.201 Unspecified ovarian cyst, right side (principal); N83.202 Unspecified ovarian cyst, left side; R10.2 Pelvic and perineal pain; N80.9 Endometriosis, unspecified; R11.2 Nausea with vomiting, unspecified; J45.909 Unspecified asthma, uncomplicated; Z79.899 Other long term (current) drug therapy
CPT/HCPCS: 36415; 76830; 76856; 80053; 81001; 81025; 83690; 83735; 85007; 85025; 87086; 87491; 87591; 96361; 96372; 96374; 96375; 99284; J0456; J0696; J1885; J2405; J3490; J7030; Q0111

== ENCOUNTER 2020-04-11 10:16 | Emergency (ER) | payer OTHER ==
[~2020-04-11] VITALS: Ht 175.3 cm; Wt 115.1 kg
[~2020-04-11 10:16] MED LIST changes: +NAPR375T5 PO
[2020-04-11 11:14] LABS: BACTERIA,URINE 0 /HPF (0-FEW); BILIRUBIN,URINE NEG (NEG); CLARITY,URINE CLEAR; COLOR,URINE YELLOW; GLUCOSE,URINE NEG (NEG); HYALINE CASTS, URINE OCC /HPF; NITRITE,URINE NEG (NEG); SQUAMOUS EPITHELIAL CELL,UR FEW /LPF; UROBILINOGEN,URINE 0.2 mg/dL (0.2 mg/dL)
[2020-04-11 11:46] LABS: BASO % 0 % (0-3); EOS # 0.1 x10^3/uL (0.0-0.7); EOS % 1 % (0-3); HEMATOCRIT 42.6 % (36.0-47.0); HEMOGLOBIN 13.9 g/dL (12.0-15.5); LYMPH # 1.5 x10^3/uL (1.0-4.8); LYMPH % 21 % (24-48); MEAN CORPUSCULAR HEMOGLOBIN 28 pg (25-35); MEAN CORPUSCULAR HGB CONC 33 g/dL (31-37); MEAN CORPUSCULAR VOLUME 85 fL (79-100); MONO # 0.6 x10^3/uL (0.0-1.1); MONO % 8 % (0-9); NEUT # 5.3 x10^3uL (1.8-7.7); NEUT % 71 % (31-73); PLATELET COUNT 157 x10^3/uL (140-400); RED CELL DISTRIBUTION WIDTH 13.8 % (11.5-14.5); WHITE BLOOD COUNT 7.5 x10^3/uL (4.0-11.0)
--- NOTE | 2020-04-11 11:52 | RAD ---
EXAM: CHEST AP ONLY INDICATION: Reason: sob / Spl. Instructions: / History: . TECHNIQUE: Single view COMPARISON: 08/08/2019 chest x-ray FINDINGS: The heart size is normal. The great vessels appear unremarkable. There is no hilar or mediastinal mass. The lungs are clear. There is no pleural effusion or pneumothorax. There are no significant osseous abnormalities. IMPRESSION: No active cardiopulmonary disease. Electronically signed by: Luda Hendrickson MD (04/11/2020 11:49 AM) [id number]
[2020-04-11 11:56] LABS: CALCIUM 8.7 mg/dL (8.5-10.1); CREATININE 0.9 mg/dL (0.6-1.0); GFR 78.3; POTASSIUM 3.7 mmol/L (3.5-5.1)
[2020-04-11 12:01] LABS: ALBUMIN 3.6 g/dL (3.4-5.0); ALBUMIN/GLOBULIN RATIO 0.9 (1.0-1.7); C REACTIVE PROTEIN 7.2 mg/L (0-3.3); TOTAL BILIRUBIN 0.6 mg/dL (0.2-1.0); TOTAL PROTEIN 7.6 g/dL (6.4-8.2)
[2020-04-11] MEDS ORDERED: ONDA4TAB7 PO (12:15)
[2020-04-11] MEDS ORDERED: ONDANSETRON PF 4 MG/2 ML VIAL. IVP ONE (12:15)
[2020-04-11] MEDS ORDERED: FAMO-63 PO (12:15)
--- NOTE | 2020-04-11 12:19 | PHYS DOC ---
Past History Past Medical History: Asthma, Endometriosis, Other Additional Past Medical Histor: PCOS, Past Surgical History: No Surgical History Smoking: Non-smoker Alcohol Use: None Drug Use: None Adult General Chief Complaint Chief Complaint: NAUSEA/VOMITING/DIARRHEA HPI HPI Patient is a 20 year old female who presents with nausea and vomiting. She has been having intermittent abdominal pain since Thursday. She states that sometimes she is able to eat without difficulty and other day use she cannot keep anything down. She is being able to drink water without any difficulty. She has some very mild shortness of breath. She denies any cough, URI symptoms, fever. She is never had surgery in her abdomen before. She is not currently having any abdominal pain. She went to work today and had vomiting so they sent her here for evaluation for possible coronavirus. Review of Systems Review of Systems General: Denies fever, chills, sweats, fatigue Eyes: Denies drainage, blurred vision, eye redness HENT: Denies rhinorrhea, sore throat, earache Respiratory: Denies cough, shortness of breath, wheezing Cardiac: Denies edema, palpitations, chest pain GI: Reports abdominal pain, Nausea, vomiting MSK: Denies back pain, neck pain Skin: Denies rash, jaundice Neuro: Denies headache, dizziness Psychiatric: Denies SI/HI Allergies Allergies Allergies Coded Allergies Type Severity Reaction Last Updated Verified morphine Allergy Unknown 10/13/18 Yes Physical Exam Physical Exam General: Awake, alert, NAD. Well Nourished, well hydrated. Cooperative HEENT: Atraumatic, EOMI, PERRL, airway patent, moist oral mucosa Neck: Supple, trachea midline Respiratory: CTA bilaterally, normal effort, no wheezing/crackles CV: RRR, no murmur, cap refill <2 GI: Soft, nondistended, nontender, no masses MSK: No obvious deformities Skin: Warm, dry, intact Neuro: A&O x3, speech NL, sensory and motor grossly intact, no focal deficits Psych: Normal affect, normal mood, not suicidal or homicidal Current Patient Data Vital Signs Vital Signs Date Time Temp Pulse Resp B/P (MAP) Pulse Ox O2 Delivery O2 Flow Rate FiO2 04/11/20 10:30 98.1 63 14 152/97 (115) 100 Room Air Lab Results Laboratory Tests Test 04/11/20 10:44 04/11/20 10:58 04/11/20 11:28 Urine Collection Type Unknown Urine Color Yellow Urine Clarity Clear Urine pH 6.0 Urine Specific [place] 1.025 Urine Protein 30 mg/dl (NEG-TRACE) Urine Glucose (UA) Neg mg/dL (NEG) Urine Ketones (Stick) Neg mg/dL (NEG) Urine Blood Neg (NEG) Urine Nitrite Neg (NEG) Urine Bilirubin Neg (NEG) Urine Urobilinogen Dipstick 0.2 mg/dL (0.2 mg/dL) Urine Leukocyte Esterase Neg (NEG) Urine RBC 1-2 /HPF (0-2) Urine WBC 1-4 /HPF (0-4) Urine Squamous Epithelial Cells Few /LPF Urine Bacteria 0 /HPF (0-FEW) Urine Hyaline Casts Occ /HPF Urine Mucus Slight /LPF POC Urine HCG, Qualitative hcg negative (Negative) White Blood Count 7.5 x10^3/uL (4.0-11.0) Red Blood Count 5.00 x10^6/uL (3.50-5.40) Hemoglobin 13.9 g/dL (12.0-15.5) Hematocrit 42.6 % (36.0-47.0) Mean Corpuscular Volume 85 fL (79-100) Mean Corpuscular Hemoglobin 28 pg (25-35) Mean Corpuscular Hemoglobin Concent 33 g/dL (31-37) Red Cell Distribution Width 13.8 % (11.5-14.5) Platelet Count 157 x10^3/uL (140-400) Neutrophils (%) (Auto) 71 % (31-73) Lymphocytes (%) (Auto) 21 % (24-48) L Monocytes (%) (Auto) 8 % (0-9) Eosinophils (%) (Auto) 1 % (0-3) Basophils (%) (Auto) 0 % (0-3) Neutrophils # (Auto) 5.3 x10^3uL (1.8-7.7) Lymphocytes # (Auto) 1.5 x10^3/uL (1.0-4.8) Monocytes # (Auto) 0.6 x10^3/uL (0.0-1.1) Eosinophils # (Auto) 0.1 x10^3/uL (0.0-0.7) Basophils # (Auto) 0.0 x10^3/uL (0.0-0.2) Sodium Level 139 mmol/L (136-145) Potassium Level 3.7 mmol/L (3.5-5.1) Chloride Level 103 mmol/L (98-107) Carbon Dioxide Level 24 mmol/L (21-32) Anion Gap 12 (6-14) Blood Urea Nitrogen 7 mg/dL (7-20) Creatinine 0.9 mg/dL (0.6-1.0) Estimated GFR (Cockcroft-Gault) 78.3 BUN/Creatinine Ratio 8 (6-20) Glucose Level 95 mg/dL (70-99) Calcium Level 8.7 mg/dL (8.5-10.1) Total Bilirubin 0.6 mg/dL (0.2-1.0) Aspartate Amino Transferase (AST) 14 U/L (15-37) L Alanine Aminotransferase (ALT) 21 U/L (14-59) Alkaline Phosphatase 52 U/L (46-116) Creatine Kinase 104 U/L (26-192) C-Reactive Protein 7.2 mg/L (0-3.3) H Total Protein 7.6 g/dL (6.4-8.2) Albumin 3.6 g/dL (3.4-5.0) Albumin/Globulin Ratio 0.9 (1.0-1.7) L Lipase 123 U/L (73-393) EKG EKG [] Radiology/Procedures Radiology/Procedures [] Course & Med Decision Making Course & Med Decision Making Pertinent Labs and Imaging studies reviewed. (See chart for details) Patient is 20-year-old female who presents to the emergency room with abdominal complaints. Patient's complaints are likely secondary to gastroenteritis. Abdominal labs were ordered and was normal. Patient does not have a white count at this time. This makes it highly unlikely that she has cholecystitis or appendicitis given that this is been ongoing for several days. I think it is unlikely that she has coronavirus, however we will test her as she could have atypical symptoms. I discussed with her quarantine until her test comes back. We will treat her symptomatically. Patient's test results and vitals while in the ED were fully reviewed and discussed with the patient. Patient is stable and at this time does not need admission to the hospital. We have discussed strict return precautions and the importance of following up with their Primary Care Physician. Patient stated understanding and was given an opportunity to ask any questions. Patient is in agreement with plan. Dragon Disclaimer Dragon Disclaimer This electronic medical record was generated, in whole or in part, using a voice recognition dictation system. Departure Departure: Impression: Primary Impression: Gastroenteritis Disposition: 01 HOME/RESIDENCE PRIOR TO ADM Condition: STABLE Referrals: ANN-MARIE MCCORMICK (PCP) Patient Instructions: Viral Gastroenteritis Additional Instructions: Thank you for visiting [facility]. We appreciate you trusting us with your care. If any additional problems come up please don't hesitate to return to visit us. Follow up with your primary care provider so they can plan additional care if needed and know about the problem that you had today. If symptoms worsen come back to the Emergency Department. Any concerning symptoms that start such as chest pain, shortness of air, weakness or numbness on one side of the body, running high fevers or any other concerning symptoms return to the ER. You have a viral syndrome which may include symptoms like muscle aches, fevers, chills, runny nose, cough, sneezing, sore throat, nausea, vomiting, or diarrhea. One of the potential viruses that you may have is SARS-CoV-2, the virus that causes COVID-19, also known as the Coronavirus. You are just as likely to have a different viral infection such as the common cold, flu, etc. Most patients with the Coronavirus have mild symptoms and recover on their own. Resting, staying hydrated, and sleep based on known cases can be helpful. As of todays visit, you are well enough to go home and treat your symptoms with oral fluids and over the counter medications. Coronavirus testing is not performed on most people with mild symptoms who are being discharged from the emergency department. If Coronavirus testing was performed today the results will not be available for possibly up to 3-4 days. If your result is positive you will be contacted. Please follow the following precautions at home: 1. Stay home except to get medical care. 2. As advised by the CDC, we recommend that you stay in your home and minimize contact with other people. We do not want you to spread the infection. 3. Those who are older or have significant medical issues may have more severe symptoms from this infection. We recommend self-isolation FOR AT LEAST 7 DAYS after your 1st day of symptoms. AFTER you feel better please wait AT LEAST ANOTHER WEEK before returning to regular activities and being around other people. 4. IF you become sicker and have difficulty breathing, chest pain, are unable to eat/drink, severe vomiting, diarrhea, or weakness you may need to return to the Emergency Department. 5. You should restrict activities outside of your home, except for getting medical care. DO NOT go to work, school, or public areas. Avoid using public transportation, ride sharing, or taxis. 6. Separate yourself from other people in your home. You should use a separate bathroom if possible. 7. Avoid sharing personal household items such as dishes, cups, eating utensils, towels, etc. 8. Clean all high touch surfaces every day (door knobs, counter tops, etc). Use a household cleaning spray or wipe per label instructions. 9. Clean your hands often. Wash your hands with soap and water for at least 20 seconds. 10. Cover your mouth and nose when you cough or sneeze. 11. Throw used tissues in the trash and immediately wash your hands. For additional resources please visit the CDC website or the [facility] ([phone]), you may also call 211 for further information. Scripts Ondansetron Hcl (ZOFRAN) 4 Mg Tablet 1 TAB PO PRN Q6HRS PRN for NAUSEA, #10 TAB Prov: URIEL GRIFFIN MD 04/11/20 Famotidine (PEPCID) 20 Mg Tablet 1 TAB PO BID for gastritis, #10 TAB 0 Refills Prov: URIEL GRIFFIN MD 04/11/20 Justification of Admission: Justification of Admission: Justification of Admission Dx: No URIEL GRIFFIN MD Apr 11, 2020 12:19
[2020-04-11] MEDS ORDERED: ONDANSETRON ODT 4 MG TAB.RAPDIS ONE (12:34)
[2020-04-11] MEDS ORDERED: ONDANSETRON ODT 4 MG TAB.RAPDIS PO ONE (12:45)
[2020-04-11 12:47] VITALS: BP 145/78
--- NOTE | 2020-04-13 11:21 | NUR ---
IP: patient notified of COVID test results.
== END 2020-04-11 12:47 | disposition home or self-care (01) ==
LOC: ER 10:16
DX: K52.9 Noninfective gastroenteritis and colitis, unspecified (principal); J45.909 Unspecified asthma, uncomplicated; E28.2 Polycystic ovarian syndrome; Z20.828 Contact with and (suspected) exposure to other viral communicable diseases; Z88.5 Allergy status to narcotic agent
CPT/HCPCS: 36415; 71045; 80053; 81001; 81025; 82550; 83690; 85025; 86140; 99284; Q0162; U0003

== ENCOUNTER → 2020-08-16 | Outpatient (CLI) | payer OTHER ==
[~2020-08-16] MED LIST changes: +FAMO-63 PO
--- NOTE | 2020-08-16 17:49 | RAD ---
Examination: XR ABDOMEN 2V History: Reason: ABDOMEN PAIN / Comparison/Correlation: 08/05/2018 CT abdomen and pelvis without contrast Findings: Supine and upright views of the abdomen were obtained. Visualized lung bases are clear. No suspicious abdominal calcifications. Bowel gas pattern is unremarkable. Fluid levels are present with in nondistended colon and stomach. No bowel obstruction or extraluminal subdiaphragmatic gas. Bony st ructures are unremarkable. Impression: No suspicious process. Unremarkable exam. Electronically signed by: Jericho Pelayo MD (08/16/2020 5:47 PM) [id number]
== END ==
LOC: PMG 11:11
PROVIDERS: ATTEND Physician Assistant
DX: R10.30 Lower abdominal pain, unspecified (principal)
CPT/HCPCS: 74019

== ENCOUNTER 2020-09-07 09:17 | Emergency (ER) | payer OTHER ==
[~2020-09-07] VITALS: Ht 175.3 cm; Wt 115.1 kg
--- NOTE | 2020-09-07 09:27 | PHYS DOC ---
Past History Past Medical History: Asthma, Endometriosis, Other Additional Past Medical Histor: PCOS, Past Surgical History: No Surgical History Smoking: Non-smoker Alcohol Use: None Drug Use: None Adult General HPI HPI Patient is a fully vaccinated 20-year-old female complaining of multiple complaints. She arrives via POV. Reports 3 days ago developing generalized URI-like symptoms with progressive development of diarrhea and left lower quadra nt/suprapubic pain. Nothing known makes better or worse, she has not taken any medications at home in attempt to alleviate her pain. Pain is focal nonradiating and "now it hurts really bad ". She has no prior abdominal surgeries but does not admit history of PCOS and endometriosis with history of ruptured ovarian cyst on the left. Denies any fever but does admit COVID-19 contact. Admits her best friend whom she sees daily recently tested positive for 3 days ago, she got tested 2 days ago with rapid screen being negative. She subsequently took PCR test yesterday with results pending. She has been home quarantining since finding out her friend was positive given extremely close contact and fear of false negative testing results. Patient reports that she would have typically gone in to see her primary care physician for complaints today; however, she cannot see them due to being a PUI. Review of Systems Review of Systems Fourteen body systems of review of systems have been reviewed. See HPI for pertinent positives and negative responses, other gray all other systems are negative, non-pertinent or non-contributory Allergies Allergies Allergies Coded Allergies Type Severity Reaction Last Updated Verified morphine Allergy Unknown 10/13/18 Yes Physical Exam Physical Exam Constitutional: Well developed, well nourished, no acute distress, non-toxic appearance. HENT: Normocephalic, atraumatic, bilateral external ears normal, oropharynx moist, no oral exudates, nose normal. Eyes: PERRLA, EOMI, conjunctiva normal, no discharge. Neck: Normal range of motion, no tenderness, supple, no stridor. Cardiovascular: Heart rate regular, sinus rhythm, no murmurs rubs or gallops Lungs & Thorax: Bilateral breath sounds clear to auscultation Abdomen: Bowel sounds normal, soft, mild tenderness to left lower quadrant without guarding or rebound, no masses, no pulsatile masses. Nonsurgical abdomen, no peritoneal signs Skin: Warm, dry, no erythema, no rash. Back: No tenderness, no CVA tenderness. Extremities: No tenderness, no cyanosis, no clubbing, ROM intact, no edema. Neurologic: Alert and oriented X 3, grossly normal motor & sensory function, no focal deficits noted. Psychologic: Affect normal, judgement normal, mood normal. Current Patient Data Vital Signs Vital Signs Date Time Temp Pulse Resp B/P (MAP) Pulse Ox O2 Delivery O2 Flow Rate FiO2 09/07/20 10:20 61 16 126/70 (88) 98 Room Air 09/07/20 09:20 98.0 78 18 140/87 (104) 99 Room Air Lab Results Laboratory Tests Test 09/07/20 09:40 09/07/20 09:54 White Blood Count 7.9 x10^3/uL Red Blood Count 5.37 x10^6/uL Hemoglobin 15.2 g/dL Hematocrit 46.0 % Mean Corpuscular Volume 86 fL Mean Corpuscular Hemoglobin 28 pg Mean Corpuscular Hemoglobin Concent 33 g/dL Red Cell Distribution Width 13.7 % Platelet Count 164 x10^3/uL Neutrophils (%) (Auto) 72 % Lymphocytes (%) (Auto) 20 % Monocytes (%) (Auto) 7 % Eosinophils (%) (Auto) 1 % Basophils (%) (Auto) 1 % Neutrophils # (Auto) 5.7 x10^3uL Lymphocytes # (Auto) 1.6 x10^3/uL Monocytes # (Auto) 0.5 x10^3/uL Eosinophils # (Auto) 0.1 x10^3/uL Basophils # (Auto) 0.1 x10^3/uL Urine Collection Type Unknown Urine Color Yellow Urine Clarity Clear Urine pH 6.0 Urine Specific Bypro 1.025 Urine Protein 30 mg/dl Urine Glucose (UA) Neg mg/dL Urine Ketones (Stick) 40 mg/dL Urine Blood Neg Urine Nitrite Neg Urine Bilirubin Neg Urine Urobilinogen Dipstick 0.2 mg/dL Urine Leukocyte Esterase Neg Urine RBC 0 /HPF Urine WBC 1-4 /HPF Urine Squamous Epithelial Cells Many /LPF Urine Bacteria Few /HPF Urine Mucus Mod /LPF Sodium Level 139 mmol/L Potassium Level 3.7 mmol/L Chloride Level 101 mmol/L Carbon Dioxide Level 26 mmol/L Anion Gap 12 Blood Urea Nitrogen 8 mg/dL Creatinine 0.8 mg/dL Estimated GFR (Cockcroft-Gault) 89.7 BUN/Creatinine Ratio 10 Glucose Level 94 mg/dL Calcium Level 8.9 mg/dL Total Bilirubin 0.7 mg/dL Aspartate Amino Transf (AST/SGOT) 13 U/L Alanine Aminotransferase (ALT/SGPT) 22 U/L Alkaline Phosphatase 52 U/L Total Protein 8.2 g/dL Albumin 4.1 g/dL Albumin/Globulin Ratio 1.0 Bedside Urine HCG, Qualitative hcg negative Current Medications Medications (Trade) Dose Ordered Sig/Malka Route PRN Reason Start Time Stop Time Status Last Admin Dose Admin Ketorolac Tromethamine (Toradol 15mg Vial) 15 mg 1X ONCE IVP 09/07/20 10:00 09/07/20 10:01 DC 09/07/20 09:49 Ketorolac Tromethamine (Toradol 15mg Vial) 15 mg STK-MED ONCE .ROUTE 09/07/20 09:46 09/07/20 09:47 DC EKG EKG [] Radiology/Procedures Radiology/Procedures EXAM: Pelvic sonogram. HISTORY: Left adnexal pain. TECHNIQUE: Transabdominal sonographic imaging of the pelvis was performed. COMPARISON: CT dated 08/16/2020. FINDINGS: The uterus measures 8.3 x 5.4 x 3.9 cm. The endometrial stripe measures 5 mm in thickness. The ovaries are normal in size and demonstrate normal blood flow. There is a 3.0 cm right ovarian follicular cyst. There is no pelvic free fluid. IMPRESSION: 1. 3.0 cm right ovarian follicular cyst. 2. Otherwise, unremarkable pelvic sonogram. Electronically signed by: Dana Garrison MD (09/07/2020 10:53 AM) [id number] Heart Score HEART Score for Chest Pain: HEART Score for Chest Pain Response (Comments) Value History Slighlty/Non-Suspicious 0 Age < 45 0 Risk Factors 1 or 2 Risk Factors 1 Total 1 Risk Factors: Risk Factors: DM, Current or recent (<one month) smoker, HTN, HLP, family hi story of CAD, obesity. Risk Scores: Risk Factors: DM, Current or recent (<one month) smoker, HTN, HLP, family history of CAD, obesity. Course & Med Decision Making Course & Med Decision Making Discussed with the patient all findings and diagnostic testing. I discussed most likely diagnosis of likely sequelae symptoms of viral syndrome in a patient who is currently a person under investigation for COVID-19. Nonetheless, I did disclose this might be an acute presentation of more concerning pathology. Physical examination was nonconcerning, work-up nonconcerning. Disclose there was no indication for further diagnostic work-up in ER setting given patient's work-up and physical exam findings thus far. I stressed need for ongoing supportive care while self quarantined with close outpatient follow-up to review today's ER visit once appropriate/safe. Strict return precautions were also discussed at length with good understanding by patient. Patient voiced un derstanding and agreement with the plan. Patient knows to come back for repeat evaluation if concerning signs or symptoms present prior to outpatient follow- up. Hemodynamically stable, ambulatory and well-appearing at time of disposition. Dragon Disclaimer Dragon Disclaimer This electronic medical record was generated, in whole or in part, using a voice recognition dictation system. Departure Departure: Impression: Primary Impression: Person under investigation for COVID-19 Additional Impression: Lower abdominal pain, unspecified Disposition: 01 DC HOME SELF CARE/HOMELESS Condition: GOOD Referrals: ANN-MARIE MCCORMICK (PCP) Patient Instructions: Abdominal Pain (Nonspecific) Additional Instructions: You have been evaluated in the Emergency Department today for adnexal pain. Your evaluation was not suggestive of any emergent condition requiring medical intervention at this time. However, some abdominal problems make take more time to appear. Therefore, it is important for you to watch for any new symptoms or worsening of your current condition. You are currently a person under investigation for COVID-19. Please continue self quarantine protocol and call your PCP today to follow-up on ER visit and discuss your ongoing symptoms pending COVID-19 testing results. Please discuss with your primary care physician when you can safely be seen in outpatient setting for repeat evaluation for your symptoms Return to the Emergency Department if you experience worsening pain, persistent fevers greater than 100.4, recurrent vomiting, blood in vomit, blood in stool, dark tarry stool, chest pain, difficulty breathing, or any other concerning symptoms. Problem Qualifiers COLE OROZCO DO Sep 07, 2020 09:27
[2020-09-07] MEDS ORDERED: KETOROLAC 15 MG/ML VIAL. ONE (09:46)
[2020-09-07] MEDS ORDERED: KETOROLAC 15 MG/ML VIAL. IVP ONE (10:00)
[2020-09-07 10:06] LABS: BASO # 0.1 x10^3/uL (0.0-0.2); BASO % 1 % (0-3); EOS # 0.1 x10^3/uL (0.0-0.7); EOS % 1 % (0-3); HEMOGLOBIN 15.2 g/dL (12.0-15.5); LYMPH # 1.6 x10^3/uL (1.0-4.8); LYMPH % 20 % (24-48); MEAN CORPUSCULAR HEMOGLOBIN 28 pg (25-35); MEAN CORPUSCULAR HGB CONC 33 g/dL (31-37); MEAN CORPUSCULAR VOLUME 86 fL (79-100); MONO # 0.5 x10^3/uL (0.0-1.1); MONO % 7 % (0-9); NEUT # 5.7 x10^3uL (1.8-7.7); NEUT % 72 % (31-73); PLATELET COUNT 164 x10^3/uL (140-400); RED BLOOD COUNT 5.37 x10^6/uL (3.50-5.40); RED CELL DISTRIBUTION WIDTH 13.7 % (11.5-14.5); WHITE BLOOD COUNT 7.9 x10^3/uL (4.0-11.0)
[2020-09-07 10:13] LABS: BILIRUBIN,URINE NEG (NEG); CLARITY,URINE CLEAR; COLOR,URINE YELLOW; GLUCOSE,URINE NEG (NEG); NITRITE,URINE NEG (NEG); UROBILINOGEN,URINE 0.2 mg/dL (0.2 mg/dL)
[2020-09-07 10:14] LABS: BACTERIA,URINE FEW /HPF (0-FEW); RBC,URINE 0 /HPF (0-2); SQUAMOUS EPITHELIAL CELL,UR MANY /LPF
[2020-09-07 10:18] LABS: CALCIUM 8.9 mg/dL (8.5-10.1); CREATININE 0.8 mg/dL (0.6-1.0); GFR 89.7; POTASSIUM 3.7 mmol/L (3.5-5.1)
[2020-09-07 10:20] LABS: ALBUMIN 4.1 g/dL (3.4-5.0); TOTAL BILIRUBIN 0.7 mg/dL (0.2-1.0); TOTAL PROTEIN 8.2 g/dL (6.4-8.2)
--- NOTE | 2020-09-07 10:58 | RAD ---
EXAM: Pelvic sonogram. HISTORY: Left adnexal pain. TECHNIQUE: Transabdominal sonographic imaging of the pelvis was performed. COMPARISON: CT dated 08/16/2020. FINDINGS: The uterus measures 8.3 x 5.4 x 3.9 cm. The endometrial stripe measures 5 mm in thickness. The ovaries are normal in size and demonstrate normal blood flow. There is a 3.0 cm right ovarian fol licular cyst. There is no pelvic free fluid. IMPRESSION: 1. 3.0 cm right ovarian follicular cyst. 2. Otherwise, unremarkable pelvic sonogram. Electronically signed by: Dana Garrison MD (09/07/2020 10:53 AM) [id number]
[2020-09-07 11:15] VITALS: BP 127/72
== END 2020-09-07 11:20 | disposition home or self-care (01) ==
LOC: ER 09:17
DX: R10.32 Left lower quadrant pain (principal); J45.909 Unspecified asthma, uncomplicated; Z20.818 Contact with and (suspected) exposure to other bacterial communicable diseases; Z88.6 Allergy status to analgesic agent
CPT/HCPCS: 36415; 76856; 80053; 81001; 81025; 85025; 96374; 99284; J1885

== ENCOUNTER 2021-02-03 09:40 | Emergency (ER) | payer OTHER ==
[~2021-02-03] VITALS: Ht 172.7 cm; Wt 105.5 kg
[2021-02-03 09:54] VITALS: BP 126/74
--- NOTE | 2021-02-03 09:57 | PHYS DOC ---
Past History Past Medical History: Asthma, Endometriosis, Other Additional Past Medical Histor: PCOS, Past Surgical History: No Surgical History Smoking: Non-smoker Alcohol Use: None Drug Use: None General Adult EDM: Chief Complaint: BACK PAIN OR INJURY HPI: HPI: 20-year-old female presents with low back pain. The patient fell at home prior to arrival. She was turning when she slipped and fell so she landed onto her buttocks. She already has some mild lumbar pain at baseline. Now the pain is severe and its making her tearful. She states it is really low on her back at the top of her gluteal cleft. She denies any other injuries at this time. Review of Systems: Review of Systems: Constitutional: Denies fever or chills Eyes: Denies change in visual acuity HENT: Denies nasal congestion or sore throat Respiratory: Denies cough or shortness of breath Cardiovascular: Denies chest pain or edema GI: Denies abdominal pain, nausea, vomiting, bloody stools or diarrhea : Denies dysuria Musculoskeletal: Low back pain Integument: Denies rash Neurologic: Denies headache, focal weakness or sensory changes Endocrine: Denies polyuria or polydipsia Lymphatic: Denies swollen glands Psychiatric: Denies depression or anxiety Allergies: Allergies: Allergies Coded Allergies Type Severity Reaction Last Updated Verified morphine Allergy Unknown 09/07/20 Yes Physical Exam: PE: Constitutional: Well developed, well nourished, no acute distress, non-toxic appearance. [] HENT: Normocephalic, atraumatic, bilateral external ears normal, oropharynx moist, no oral exudates, nose normal. [] Eyes: PERRLA, EOMI, conjunctiva normal, no discharge. [] Neck: Normal range of motion, no tenderness, supple, no stridor. [] Cardiovascular:Heart rate regular rhythm, no murmur [] Lungs & Thorax: Bilateral breath sounds clear to auscultation [] Abdomen: Bowel sounds normal, soft, no tenderness, no masses, no pulsatile masses. [] Skin: Warm, dry, no erythema, no rash. [] Back: Tenderness over the bilateral sacroiliac joints. [] Extremities: No tenderness, no cyanosis, no clubbing, ROM intact, no edema. [] Neurologic: Alert and oriented X 3, normal motor function, normal sensory function, no focal deficits noted. [] Psychologic: Affect normal, judgement normal, mood normal. [] EKG: EKG: [] Radiology/Procedures: Radiology/Procedures: [] Impressions: EXAM: Lumbar spine, 3 views. HISTORY: Fall. Pain. COMPARISON: None. FINDINGS: 3 views of the lumbar spine are obtained. There are 6 nonrib-bearing lumbar segments, a normal variant. There is grade 1 anterolisthesis of L6 on S1 with associated pars interarticularis defects. The vertebral bodies are normal in height and the disc spaces are preserved. IMPRESSION: 1. Grade 1 anterolisthesis of L6 on S1 with associated pars defects. 2. 6 nonrib-bearing lumbar vertebral segments, a normal variant. Electronically signed by: Dana Garrison MD (02/03/2021 10:03 AM) [facility] DICTATED AND SIGNED BY: DANA GARRISON MD DATE: 02/03/21 1002 CC: CURTIS GARCIA DO; ANN-MARIE MCCORMICK PA ~MTH0 0 Heart Score: C/O Chest Pain: N/A Risk Factors: Risk Factors: DM, Current or recent (<one month) smoker, HTN, HLP, family history of CAD, obesity. Risk Scores: Score 0 - 3: 2.5% MACE over next 6 weeks - Discharge Home Score 4 - 6: 20.3% MACE over next 6 weeks - Admit for Clinical Observation Score 7 - 10: 72.7% MACE over next 6 weeks - Early Invasive Strategies Course & Med Decision Making: Course & Med Decision Making Pertinent Labs and Imaging studies reviewed. (See chart for details) Review of the drug tracking database shows a narcotic prescription in October. She only has 3 total narcotic prescriptions in the last 18 months. The patient is most tender at the lower lumbar/sacrum area. She does have some anteriolisthesis of L6 on S1. See official read for more details. I will disch arge her with [place] 5/325, prednisone, and Flexeril. She is stable for discharge at this time. [] Dragon Disclaimer: Dragon Disclaimer: This electronic medical record was generated, in whole or in part, using a voice recognition dictation system. Departure Departure: Impression: Primary Impression: Lumbar strain Qualified Codes: S39.012A - Strain of muscle, fascia and tendon of lower back, initial encounter Additional Impression: Anterolisthesis Disposition: HOME / SELF CARE / HOMELESS Condition: STABLE Referrals: ANN-MARIE MCCORMICK (PCP) Patient Instructions: Low Back Strain with Rehab-[facility] Scripts Cyclobenzaprine Hcl (CYCLOBENZAPRINE HCL) 10 Mg Tablet 1 TAB PO TID PRN for MUSCLE SPASMS, #30 TAB Prov: CURTIS GARCIA DO 02/03/21 Hydrocodone/Acetaminophen (Hydrocodone-Acetamin 5-325 mg) 1 Each Tablet 1 EACH PO Q4-6HRS PRN for PAIN, #10 TAB Prov: CURTIS GARCIA DO 02/03/21 Prednisone (PREDNISONE) 10 Mg Tablet 50 MG PO DAILY for back pain for 4 Days, #20 TAB Prov: CURTIS GARCIA DO 02/03/21 CURTIS GARCIA DO Feb 03, 2021 09:57
--- NOTE | 2021-02-03 10:06 | RAD ---
EXAM: Lumbar spine, 3 views. HISTORY: Fall. Pain. COMPARISON: None. FINDINGS: 3 views of the lumbar spine are obtained. There are 6 nonrib-bearing lumbar segments, a nor mal variant. There is grade 1 anterolisthesis of L6 on S1 with associated pars interarticularis defec ts. The vertebral bodies are normal in height and the disc spaces are preserved. IMPRESSION: 1. Grade 1 anterolisthesis of L6 on S1 with associated pars defects. 2. 6 nonrib-bearing lumbar vertebral segments, a normal variant. Electronically signed by: Dana Garrison MD (02/03/2021 10:03 AM) [facility]
[2021-02-03] MEDS ORDERED: HYDR-2759 PO (10:13)
[2021-02-03] MEDS ORDERED: CYCL-331 PO (10:13)
[2021-02-03] MEDS ORDERED: PRED-220 PO (10:13)
== END 2021-02-03 10:24 | disposition home or self-care (01) ==
LOC: ER 09:40
DX: S39.012A Strain of muscle, fascia and tendon of lower back, initial encounter (principal); M43.16 Spondylolisthesis, lumbar region; J45.909 Unspecified asthma, uncomplicated; Z88.5 Allergy status to narcotic agent; W01.0XXA Fall on same level from slipping, tripping and stumbling without subsequent striking against object, initial encounter; Y93.89 Activity, other specified; Y92.098 Other place in other non-institutional residence as the place of occurrence of the external cause; Y99.8 Other external cause status
CPT/HCPCS: 72100; 99283

== ENCOUNTER 2021-02-16 19:39 | Emergency (ER) | payer OTHER ==
[~2021-02-16 19:39] MED LIST changes: +CYCL-331 PO; +HYDR-2759 PO
== END 2021-02-16 19:55 | disposition left against medical advice (07) ==
LOC: ER 19:39
DX: U07.1 COVID-19 (principal); Z53.21 Procedure and treatment not carried out due to patient leaving prior to being seen by health care provider

== ENCOUNTER 2021-04-02 14:42 | Emergency (ER) | payer OTHER ==
[~2021-04-02] VITALS: Ht 172.7 cm; Wt 103.2 kg
[2021-04-02] MEDS ORDERED: IBUPROFEN 600 MG TABLET. PO ONE (15:45)
[2021-04-02] MEDS ORDERED: ONDANSETRON PF 4 MG/2 ML VIAL. IVP ONE (15:45)
[2021-04-02] MEDS ORDERED: IV NORMAL SALINE 1,000ML 1,000 ML IV ONE (15:45)
--- NOTE | 2021-04-02 16:08 | PHYS DOC ---
Past History Past Medical History: Asthma, Endometriosis Additional Past Medical Histor: PCOS Past Surgical History: No Surgical History Smoking: Non-smoker Alcohol Use: None Drug Use: None General Adult EDM: Chief Complaint: ABDOMINAL PAIN HPI: HPI: Patient is a 21-year-old female who presents with sharp, umbilical abdominal pain, nausea and vomiting for 2 weeks. Patient states that pain comes and goes. Denies anything making pain better or worse. Denies taking anything at home for pain. Unknown . LMP 03/27. Patient has a history of PCOS, endometriosis, asthma. Review of Systems: Review of Systems: Constitutional: Denies fever or chills Eyes: Denies change in visual acuity HENT: Denies nasal congestion or sore throat Respiratory: Denies cough or shortness of breath Cardiovascular: Denies chest pain or edema GI: Reports umbilical abdominal pain, nausea, vomiting. Denies bloody stools or diarrhea : Denies dysuria, reports frequency Musculoskeletal: Denies back pain or joint pain Integument: Denies rash Neurologic: Denies headache, focal weakness or sensory changes Endocrine: Denies polyuria or polydipsia Lymphatic: Denies swollen glands Psychiatric: Denies depression or anxiety Current Medications: Current Meds: Current Medications Medications (Trade) Dose Ordered Sig/Malka Start Time Stop Time Status Last Admin Dose Admin Ibuprofen (Motrin) 600 mg 1X ONCE 04/02/21 15:45 04/02/21 15:47 DC Ondansetron HCl (Zofran) 4 mg 1X ONCE 04/02/21 15:45 04/02/21 15:47 DC Sodium Chloride 1,000 ml @ 1,000 mls/hr 1X ONCE 04/02/21 15:45 04/02/21 16:44 Allergies: Allergies: Allergies Coded Allergies Type Severity Reaction Last Updated Verified morphine Allergy Unknown 04/02/21 Yes Physical Exam: PE: Constitutional: Well developed, well nourished, no acute distress, non-toxic appearance. [] HENT: Normocephalic, atraumatic, bilateral external ears normal, oropharynx moist, no oral exudates, nose normal. [] Eyes: PERRLA, EOMI, conjunctiva normal, no discharge. [] Neck: Normal range of motion, no tenderness, supple, no stridor. [] Cardiovascular:Heart rate regular rhythm, no murmur [] Lungs & Thorax: Bilateral breath sounds clear to auscultation [] Abdomen: Bowel sounds normal, soft, no tenderness, no masses Skin: Warm, dry, no erythema, no rash. [] Back: No tenderness, no CVA tenderness. [] Extremities: No tenderness, no cyanosis, no clubbing, ROM intact, no edema. [] Neurologic: Alert and oriented X 3, normal motor function, normal sensory function, no focal deficits noted. [] Psychologic: Affect normal, judgement normal, mood normal. [] Current Patient Data: Vital Signs: Vital Signs Date Time Temp Pulse Resp B/P (MAP) Pulse Ox O2 Delivery O2 Flow Rate FiO2 04/02/21 14:51 98.3 75 18 119/62 99 Room Air EKG: EKG: [] Radiology/Procedures: Radiology/Procedures: []INDICATION: Reason: umbilical pain / Spl. Instructions: / History: . COMPARISON: July 2018. TECHNIQUE: Axial CT images obtained through the abdomen and pelvis without contrast. One or more of the following individualized dose reduction techniques were utilized for this examination: 1. Automated exposure control; 2. Adjustment of the mA and/or kV according to patient size; 3. Use of iterative reconstruction technique. FINDINGS: Abdominal aorta is not aneurysmal. No intrahepatic bile duct dilation. No peripancreatic fluid collection. Spleen unremarkable. No hydronephrosis. Urinary bladder is largely decompressed. 36 mm right adnexal cystic lesion. No periappendiceal inflammatory changes. Small fat-containing umbilical hernia. No dilated loops of bowel to suggest obstruction. Degenerative changes of the spine. Pars defects L5 IMPRESSION: * No hydronephrosis. * No evidence of appendicitis. * Right adnexal cystic lesion. * Small fat-containing umbilical hernia. Electronically signed by: Yair Anderson MD (04/02/2021 4:09 PM) [id number] Heart Score: C/O Chest Pain: No Risk Factors: Risk Factors: DM, Current or recent (<one month) smoker, HTN, HLP, family history of CAD, obesity. Risk Scores: Score 0 - 3: 2.5% MACE over next 6 weeks - Discharge Home Score 4 - 6: 20.3% MACE over next 6 weeks - Admit for Clinical Observation Score 7 - 10: 72.7% MACE over next 6 weeks - Early Invasive Strategies Course & Med Decision Making: Course & Med Decision Making Pertinent Labs and Imaging studies reviewed. (See chart for details) [] 21-year-old female presents with a sharp, umbilical abdominal pain, nausea and vomiting for 2 weeks. Patient reports pain is intermittent. CT of abdomen and pelvis ordered to rule out abnormalities. Patient given 4 mg of Zofran for nausea. 600 mg of Motrin for pain. NS bolus. All labs unremarkable. UA is positive for bacteria. Sending patient home with Macrobid for UTI. First dose given in the emergency room. Patient given Pyridium for urinary symptoms. Encourage patient to push fluids. Should follow-up with PCP if symptoms not improved. Patient is hemodynamically stable. Dragon Disclaimer: Leondra music Disclaimer: This electronic medical record was generated, in whole or in part, using a voice recognition dictation system. Departure Departure: Impression: Primary Impression: UTI (urinary tract infection) Qualified Codes: N30.00 - Acute cystitis without hematuria Disposition: HOME / SELF CARE / HOMELESS Condition: STABLE Referrals: PCP,NO (PCP) Patient Instructions: Urinary Tract Infection, [id number] Additional Instructions: You are seen in the emergency room for abdominal pain and frequency. I was sending you home with a prescription for Macrobid. Your first dose was given here. Please make sure you take the antibiotic in full. Increase fluids. Follow-up with PCP if symptoms not improve. Return emergency room with worsening symptoms or concerns EMERGENCY DEPARTMENT GENERAL DISCHARGE INSTRUCTIONS Thank you for coming to [facility] (ED) today and trusting us with you care. We trust that you had a positivie experience in our Emergency Department. If you wish to speak to the department management, you may call the director at [phone]. YOUR FOLLOW UP INSTRUCTIONS ARE FOLLOWS: 1. Do you have a private Doctor? If you do not have a private doctor, please ask for a resource list of physicians or clinics that may be able to assist you with follow up care. 2. The Emergency Physician has interpreted your x-rays. The X-Ray specialist will also review them. If there is a change in the findings, you will be notified in 48 hours when at all possible. 3. A lab test or culture has been done, your results will be reviewed and you will be notified if you need a change in treatment. ADDITIONAL INSTRUCTIONS AND INFORMATION: 1. Your care today has been supervised by a physician who is specially trained in emergency care. Many problems require more than one evaluation for a complete diagnosis and treatment. We recommend that you schedule your follow up appointment as recommended to ensure complete treatment of you illness or injury. If you are unable to obtain follow up care and continue to have a problem, or if your condition worsens, we recommend that you return to the ED. 2. We are not able to safely determine your condition over the phone nor are we able to give sound medical advice over the phone. For these safety reasons, if you call for medical advice we will ask you to come to the ED for further evaluation. 3. If you have any questions regarding these discharge instructions please call the ED at [phone]. SAFETY INFORMATION: In the interest of safety, wellness, and injury prevention; we encourage you to wear your sealbelt, if you smoke; quite smoking, and we encourage family to use a protective helmet for bicycling and other sporting events that present an increased risk for head injury. IF YOUR SYMPTOMS WORSEN OR NEW SYMPTOMS DEVELOP, OR YOU HAVE CONCERNS ABOUT YOUR CONDITION; OR IF YOUR CONDITION WORSENS WHILE YOU ARE WAITING FOR YOUR FOLLOW UP APPOINTMENT; EITHER CONTACT YOUR PRIMARY CARE DOCTOR, THE PHYSICIAN WHOSE NAME AND NUMBER YOU WERE GIVEN, OR RETURN TO THE ED IMMEDIATELY. Scripts Phenazopyridine Hcl (PYRIDIUM) 200 Mg Tablet 1 TAB PO TID for urinary discomfort for 3 Days, #9 TAB 0 Refills Prov: GLORIA VALLE APRN 04/02/21 Nitrofurantoin Monohyd/M-Cryst (MACROBID 100 MG CAPSULE) 100 Mg Capsule 100 CAP PO BID for UTI for 5 Days, #10 CAP Prov: GLORIA VALLE APRN 04/02/21 GLORIA VALLE APRN Apr 02, 2021 16:07
--- NOTE | 2021-04-02 16:11 | RAD ---
INDICATION: Reason: umbilical pain / Spl. Instructions: / History: . COMPARISON: July 2018. TECHNIQUE: Axial CT images obtained through the abdomen and pelvis without contrast. One or more of the following individualized dose reduction techniques were utilized for this examinat ion: 1. Automated exposure control; 2. Adjustment of the mA and/or kV according to patient size; 3 . Use of iterative reconstruction technique. FINDINGS: Abdominal aorta is not aneurysmal. No intrahepatic bile duct dilation. No peripancreatic fluid collection. Spleen unremarkable. No hydronephrosis. Urinary bladder is largely decompressed. 36 mm right adnexal cystic lesion. No periappendiceal inflammatory changes. Small fat-containing umbilical hernia. No dilated loops of bowel to suggest obstruction. Degenerative changes of the spine. Pars defects L5 IMPRESSION: * No hydronephrosis. * No evidence of appendicitis. * Right adnexal cystic lesion. * Small fat-containing umbilical hernia. Electronically signed by: Yair Anderson MD (04/02/2021 4:09 PM) [id number]
[2021-04-02 16:35] LABS: BASO % 0 % (0-3); EOS % 0 % (0-3); HEMATOCRIT 42.3 % (36.0-47.0); HEMOGLOBIN 13.8 g/dL (12.0-15.5); LYMPH # 1.9 x10^3/uL (1.0-4.8); LYMPH % 17 % (24-48); MEAN CORPUSCULAR HEMOGLOBIN 29 pg (25-35); MEAN CORPUSCULAR HGB CONC 33 g/dL (31-37); MEAN CORPUSCULAR VOLUME 88 fL (79-100); MONO # 0.6 x10^3/uL (0.0-1.1); MONO % 5 % (0-9); NEUT # 8.8 x10^3uL (1.8-7.7); NEUT % 77 % (31-73); PLATELET COUNT 158 x10^3/uL (140-400); RED BLOOD COUNT 4.81 x10^6/uL (3.50-5.40); RED CELL DISTRIBUTION WIDTH 13.5 % (11.5-14.5); WHITE BLOOD COUNT 11.3 x10^3/uL (4.0-11.0)
[2021-04-02 16:44] LABS: COLOR,URINE YELLOW
[2021-04-02 16:45] LABS: CREATININE 0.8 mg/dL (0.6-1.0); GFR 88.9; POTASSIUM 4.1 mmol/L (3.5-5.1)
[2021-04-02 16:45] LABS: BACTERIA,URINE FEW /HPF (0-FEW); BILIRUBIN,URINE NEG (NEG); CLARITY,URINE HAZY; GLUCOSE,URINE NEG (NEG); NITRITE,URINE NEG (NEG); RBC,URINE OCC /HPF (0-2); SQUAMOUS EPITHELIAL CELL,UR FEW /LPF; UROBILINOGEN,URINE 0.2 mg/dL (0.2 mg/dL)
[2021-04-02 16:50] LABS: ALBUMIN 3.7 g/dL (3.4-5.0); TOTAL BILIRUBIN 0.4 mg/dL (0.2-1.0); TOTAL PROTEIN 7.3 g/dL (6.4-8.2)
[2021-04-02] MEDS ORDERED: NITR100C62 PO (17:35)
[2021-04-02] MEDS ORDERED: PHEN-318 PO (17:35)
[2021-04-02 17:45] VITALS: BP 112/65
[2021-04-02] MEDS ORDERED: PHENAZOPYRIDINE 200 MG TABLET. PO ONE (17:45)
[2021-04-02] MEDS ORDERED: NITROFURANTOIN MONOHYD/M-CRYST 100 MG CAPSULE. PO SCH (21:00)
== END 2021-04-02 18:10 | disposition home or self-care (01) ==
LOC: ER 14:42
DX: N30.00 Acute cystitis without hematuria (principal); J45.909 Unspecified asthma, uncomplicated; Z88.5 Allergy status to narcotic agent
CPT/HCPCS: 36415; 74176; 80053; 81001; 81025; 85025; 87086; 96361; 96374; 99284; J2405; J7030

== ENCOUNTER 2021-05-27 07:52 | Emergency (ER) | payer OTHER ==
[~2021-05-27] VITALS: Ht 172.7 cm; Wt 100.9 kg
[~2021-05-27 07:52] MED LIST changes: +PHEN-318 PO
[2021-05-27] MEDS ORDERED: IV NORMAL SALINE 1,000ML 1,000 ML IV ONE (08:30)
[2021-05-27] MEDS ORDERED: IOHEXOL 300 MG/ML 75 ML VIAL. IV ONE (08:45)
[2021-05-27 09:07] LABS: BASO % 0 % (0-3); EOS # 0.1 x10^3/uL (0.0-0.7); EOS % 1 % (0-3); HEMATOCRIT 38.5 % (36.0-47.0); HEMOGLOBIN 12.5 g/dL (12.0-15.5); LYMPH # 1.6 x10^3/uL (1.0-4.8); LYMPH % 21 % (24-48); MEAN CORPUSCULAR HEMOGLOBIN 29 pg (25-35); MEAN CORPUSCULAR HGB CONC 33 g/dL (31-37); MEAN CORPUSCULAR VOLUME 88 fL (79-100); MONO # 0.6 x10^3/uL (0.0-1.1); MONO % 8 % (0-9); NEUT # 5.4 x10^3uL (1.8-7.7); NEUT % 70 % (31-73); PLATELET COUNT 143 x10^3/uL (140-400); RED BLOOD COUNT 4.38 x10^6/uL (3.50-5.40); RED CELL DISTRIBUTION WIDTH 13.6 % (11.5-14.5); WHITE BLOOD COUNT 7.7 x10^3/uL (4.0-11.0)
[2021-05-27 09:09] LABS: U PREG PATIENT NEGATIVE (NEG)
[2021-05-27 09:18] LABS: CALCIUM 8.6 mg/dL (8.5-10.1); CREATININE 0.7 mg/dL (0.6-1.0); GFR 103.7; POTASSIUM 3.9 mmol/L (3.5-5.1)
[2021-05-27 09:20] LABS: BACTERIA,URINE 0 /HPF (0-FEW); BILIRUBIN,URINE NEG (NEG); CLARITY,URINE HAZY; COLOR,URINE YELLOW; GLUCOSE,URINE NEG (NEG); NITRITE,URINE NEG (NEG); RBC,URINE >40 /HPF (0-2); SQUAMOUS EPITHELIAL CELL,UR FEW /LPF; UROBILINOGEN,URINE 0.2 mg/dL (0.2 mg/dL); WBC,URINE OCC /HPF (0-4)
[2021-05-27 09:25] LABS: ALBUMIN 3.2 g/dL (3.4-5.0); ALBUMIN/GLOBULIN RATIO 0.9 (1.0-1.7); TOTAL BILIRUBIN 0.2 mg/dL (0.2-1.0); TOTAL PROTEIN 6.7 g/dL (6.4-8.2)
--- NOTE | 2021-05-27 09:34 | RAD ---
PQRS Compliance Statement: One or more of the following individualized dose reduction techniques were utilized for this examinat ion: 1. Automated exposure control 2. Adjustment of the mA and/or kV according to patient size 3. Use of iterative reconstruction technique CT abdomen/pelvis with contrast 05/27/2021 8:41 AM INDICATION: Left lower quadrant abdominal pain COMPARISON: CT abdomen/pelvis 04/02/2021 TECHNIQUE: Multiple axial CT images of the abdomen and pelvis were obtained after the intravenous adm inistration of 75 mL Omnipaque 300. Coronal and sagittal reformats are provided. FINDINGS: Lung bases are clear. Heart size within normal limits. Liver, spleen, adrenal glands, pancreas and ga llbladder are normal in appearance. The abdominal aorta is normal in course and caliber. There are no pathologically enlarged lymph nodes in the abdomen and pelvis. There is no abdominal free fluid. The re is no free intraperitoneal air. The kidneys enhance symmetrically. There is no suspicious renal mass. There is no hydronephrosis. The re are no suspected calculi within the kidneys, ureters or urinary bladder. Urinary bladder is within normal limits given degree of distention. Uterus is normal in appearance. There is a right adnexal c yst measuring 4.2 cm. Follicular changes identified in the left adnexa. Mild diverticulosis. Small and large bowel are normal in caliber. There is no evidence for bowel obst ruction. There are no pericolonic inflammatory changes. A normal, nondilated appendix is visualized w ithout adjacent inflammatory changes. No suspicious osseous abnormality is identified. IMPRESSION: No acute abnormality is identified within the abdomen and pelvis. There is a right adnexal cyst measuring 4.2 cm. This may represent a dominant follicle. Further mireya terization with ultrasound pelvis could be of benefit. Electronically signed by: Wendie Bradshaw MD (05/27/2021 9:31 AM) [id number]
--- NOTE | 2021-05-27 09:58 | PHYS DOC ---
Past History Past Medical History: Asthma, Endometriosis Additional Past Medical Histor: PCOS Past Surgical History: No Surgical History Smoking: Non-smoker Alcohol Use: None Drug Use: None General Adult EDM: Chief Complaint: VAGINAL BLEEDING HPI: HPI: 21-year-old female presents with vaginal bleeding. The patient has the Nexplanon implant, but states that she has irregular menstrual cycle every month. She presents today because she is having left lower quadrant abdominal pain and vaginal bleeding with clots. She has not had clots or significant cramping in the past. She admits to a history of PCOS and endometriosis. She denies fever or chills. She is sexually active. Review of Systems: Review of Systems: Constitutional: Denies fever or chills Eyes: Denies change in visual acuity HENT: Denies nasal congestion or sore throat Respiratory: Denies cough or shortness of breath Cardiovascular: Denies chest pain or edema GI: Left lower quadrant abdominal pain. Denies nausea, vomiting, bloody stools or diarrhea : Vaginal bleeding Musculoskeletal: Denies back pain or joint pain Integument: Denies rash Neurologic: Denies headache, focal weakness or sensory changes Endocrine: Denies polyuria or polydipsia Lymphatic: Denies swollen glands Psychiatric: Denies depression or anxiety Current Medications: Current Meds: Current Medications Medications (Trade) Dose Ordered Sig/Malka Start Time Stop Time Status Last Admin Dose Admin Iohexol (Omnipaque 300 Mg/ml) 75 ml 1X ONCE 05/27/21 08:45 05/27/21 08:46 DC 05/27/21 09:20 75 ML Sodium Chloride 1,000 ml @ 1,000 mls/hr 1X ONCE 05/27/21 08:30 05/27/21 09:29 DC 05/27/21 08:56 1,000 MLS/HR Allergies: Allergies: Allergies Coded Allergies Type Severity Reaction Last Updated Verified morphine Allergy Unknown 04/02/21 Yes Physical Exam: PE: Constitutional: Well developed, well nourished, obese, no acute distress, non- toxic appearance. [] HENT: Normocephalic, atraumatic, bilateral external ears normal, oropharynx moist, no oral exudates, nose normal. [] Eyes: PERRLA, EOMI, conjunctiva normal, no discharge. [] Neck: Normal range of motion, no tenderness, supple, no stridor. [] Cardiovascular: Heart rate regular rhythm, no murmur [] Lungs & Thorax: Bilateral breath sounds clear to auscultation [] Abdomen: Bowel sounds normal, soft, mild suprapubic tenderness, no masses, no pulsatile masses. [] Skin: Warm, dry, no erythema, no rash. [] Back: No tenderness, no CVA tenderness. [] Extremities: No tenderness, no cyanosis, no clubbing, ROM intact, no edema. [] Neurologic: Alert and oriented X 3, normal motor function, normal sensory fu nction, no focal deficits noted. [] Psychologic: Affect normal, judgement normal, mood normal. [] Current Patient Data: Labs: Laboratory Tests Test 05/27/21 08:21 05/27/21 08:32 05/27/21 08:36 Urine Test Negative (NEG) Urine Collection Type Unknown Urine Color Yellow Urine Clarity Hazy Urine pH 6.0 Urine Specific Seaman >=1.030 Urine Protein Neg (NEG-TRACE) Urine Glucose (UA) Neg mg/dL (NEG) Urine Ketones (Stick) Neg mg/dL (NEG) Urine Blood Large (NEG) Urine Nitrite Neg (NEG) Urine Bilirubin Neg (NEG) Urine Urobilinogen Dipstick 0.2 mg/dL (0.2 mg/dL) Urine Leukocyte Esterase Neg (NEG) Urine RBC >40 /HPF (0-2) Urine WBC Occ /HPF (0-4) Urine Squamous Epithelial Cells Few /LPF Urine Bacteria 0 /HPF (0-FEW) Urine Mucus Mod /LPF White Blood Count 7.7 x10^3/uL (4.0-11.0) Red Blood Count 4.38 x10^6/uL (3.50-5.40) Hemoglobin 12.5 g/dL (12.0-15.5) Hematocrit 38.5 % (36.0-47.0) Mean Corpuscular Volume 88 fL (79-100) Mean Corpuscular Hemoglobin 29 pg (25-35) Mean Corpuscular Hemoglobin Concent 33 g/dL (31-37) Red Cell Distribution Width 13.6 % (11.5-14.5) Platelet Count 143 x10^3/uL (140-400) Neutrophils (%) (Auto) 70 % (31-73) Lymphocytes (%) (Auto) 21 % (24-48) L Monocytes (%) (Auto) 8 % (0-9) Eosinophils (%) (Auto) 1 % (0-3) Basophils (%) (Auto) 0 % (0-3) Neutrophils # (Auto) 5.4 x10^3uL (1.8-7.7) Lymphocytes # (Auto) 1.6 x10^3/uL (1.0-4.8) Monocytes # (Auto) 0.6 x10^3/uL (0.0-1.1) Eosinophils # (Auto) 0.1 x10^3/uL (0.0-0.7) Basophils # (Auto) 0.0 x10^3/uL (0.0-0.2) Sodium Level 141 mmol/L (136-145) Potassium Level 3.9 mmol/L (3.5-5.1) Chloride Level 106 mmol/L (98-107) Carbon Dioxide Level 26 mmol/L (21-32) Anion Gap 9 (6-14) Blood Urea Nitrogen 6 mg/dL (7-20) L Creatinine 0.7 mg/dL (0.6-1.0) Estimated GFR (Cockcroft-Gault) 103.7 BUN/Creatinine Ratio 9 (6-20) Glucose Level 91 mg/dL (70-99) Calcium Level 8.6 mg/dL (8.5-10.1) Total Bilirubin 0.2 mg/dL (0.2-1.0) Aspartate Amino Transferase (AST) 11 U/L (15-37) L Alanine Aminotransferase (ALT) 16 U/L (14-59) Alkaline Phosphatase 42 U/L (46-116) L Total Protein 6.7 g/dL (6.4-8.2) Albumin 3.2 g/dL (3.4-5.0) L Albumin/Globulin Ratio 0.9 (1.0-1.7) L Vital Signs: Vital Signs Date Time Temp Pulse Resp B/P (MAP) Pulse Ox O2 Delivery O2 Flow Rate FiO2 05/27/21 08:15 98.1 70 18 138/84 (102) 99 Room Air EKG: EKG: [] Radiology/Procedures: Radiology/Procedures: [] Impressions: PQRS Compliance Statement: One or more of the following individualized dose reduction techniques were utilized for this examination: 1. Automated exposure control 2. Adjustment of the mA and/or kV according to patient size 3. Use of iterative reconstruction technique CT abdomen/pelvis with contrast 05/27/2021 8:41 AM INDICATION: Left lower quadrant abdominal pain COMPARISON: CT abdomen/pelvis 04/02/2021 TECHNIQUE: Multiple axial CT images of the abdomen and pelvis were obtained after the intravenous administration of 75 mL Omnipaque 300. Coronal and sagittal reformats are provided. FINDINGS: Lung bases are clear. Heart size within normal limits. Liver, spleen, adrenal glands, pancreas and gallbladder are normal in appearance. The abdominal aorta is normal in course and caliber. There are no pathologically enlarged lymph nodes in the abdomen and pelvis. There is no abdominal free fluid. There is no f ree intraperitoneal air. The kidneys enhance symmetrically. There is no suspicious renal mass. There is no hydronephrosis. There are no suspected calculi within the kidneys, ureters or urinary bladder. Urinary bladder is within normal limits given degree of distention. Uterus is normal in appearance. There is a right adnexal cyst measuring 4.2 cm. Follicular changes identified in the left adnexa. Mild diverticulosis. Small and large bowel are normal in caliber. There is no evidence for bowel obstruction. There are no pericolonic inflammatory changes. A normal, nondilated appendix is visualized without adjacent inflammatory changes . No suspicious osseous abnormality is identified. IMPRESSION: No acute abnormality is identified within the abdomen and pelvis. There is a right adnexal cyst measuring 4.2 cm. This may represent a dominant follicle. Further catheterization with ultrasound pelvis could be of benefit. Electronically signed by: Emerita Bradshaw MD (05/27/2021 9:31 AM) [id number] DICTATED AND SIGNED BY: EMERITA BRADSHAW MD DATE: 05/27/21926 CC: CURTIS GARCIA DO; LEODAN NIKC MD ~MTH0 0 Heart Score: C/O Chest Pain: N/A Risk Factors: Risk Factors: DM, Current or recent (<one month) smoker, HTN, HLP, family history of CAD, obesity. Risk Scores: Score 0 - 3: 2.5% MACE over next 6 weeks - Discharge Home Score 4 - 6: 20.3% MACE over next 6 weeks - Admit for Clinical Observation Score 7 - 10: 72.7% MACE over next 6 weeks - Early Invasive Strategies Course & Med Decision Making: Course & Med Decision Making Pertinent Labs and Imaging studies reviewed. (See chart for details) The patient's labs are unremarkable. She is not anemic. Her CT of the abdomen and pelvis is negative for acute findings. I suspect that her discomfort is related to her endometriosis as well as just having a heavier shedding of the uterine lining than she usually has. She plans to follow-up with her OB later this week. She is reassured by her negative results. She is stable for discharge at this time. [] Dragon Disclaimer: Dragon Disclaimer: This electronic medical record was generated, in whole or in part, using a voice recognition dictation system. Departure Departure: Impression: Primary Impression: Lower abdominal pain Additional Impression: Endometriosis Disposition: 01 HOME / SELF CARE / HOMELESS Condition: STABLE Referrals: LEODAN NICK MD (PCP) Patient Instructions: Menorrhagia, [id number] CURTIS GARCIA DO May 27, 2021 09:58
[2021-05-27 10:40] VITALS: BP 131/77
== END 2021-05-27 10:46 | disposition home or self-care (01) ==
LOC: ER 07:52
DX: N80.9 Endometriosis, unspecified (principal); R10.32 Left lower quadrant pain; J45.909 Unspecified asthma, uncomplicated; Z88.5 Allergy status to narcotic agent
CPT/HCPCS: 36415; 74177; 80053; 81001; 81025; 85025; 96360; 96361; 99285; J7030; Q9967